=== PATIENT | female | born 1940 | race Caucasian/White ===

== ENCOUNTER 2025-01-23 13:07 | Emergency (ER) | payer MEDICARE, SELFPAY ==
--- NOTE | ~2025-01-23 | XR_ITS ---
CLINICAL HISTORY: contipation 1 view abdomen Comparison: None available Findings: Left axillary and left chest wall surgical clips in the [id number]. Mild bibasilar atelectasis with borderline cardiomegaly in the [id number]-[id number]. Calcifications of the tortuous aorta. Additional calcifications include phleboliths in the pelvis. No small bowel dilatation. Severe stool burden, including imaged cecum and including distally. Degenerative changes include imaged hips in the imaged spine in the frontal radiographs. IMPRESSION: 1. No small bowel obstruction. 2. Severe stool burden This document has been electronically signed by: Chan Saleem MD on 01/23/2025 19:25:05
[2025-01-23 13:44] VITALS: BP 162/75; PULSE 87; RESP 16; TEMP 36.8; O2SAT 92; BMI 35.4
--- NOTE | 2025-01-23 13:47 | ED_ITS ---
HPI - Skin/Abscess/Foreign Bdy General Chief complaint: General Medical Stated complaint: Rash On L Leg, Constipation Time Seen by Provider: 01/23/25 18:08 Source: patient Limitations: no limitations History of Present Illness ED Provider: Estefanía Driscoll PA-C HPI narrative: 84 yo female with PMH of adrenal insufficiency, IBS, hypothyroidism, HTN, HLD, GERD, PMR currently on 5mg prednisone daily, arthritis, anxiety, wears O2 at night for hypoxia, breast cancer ( mastectomy) here with multiple complaints including her bone aching, constipation and nausea, she feels very sick to her stomach. She also has L leg rash non itchy, non-painful x 3 days ago. She could not see her oncologist today due to not feeling well. She has seen a internal controls consultant for a fungal rash in past that responded to creams. She has an appointment with her internal controls consultant later today. Associated abdominal distention, nausea, unclear when last bowel movement was, is still passing flatus from below. No fevers. Related Data Allergies Allergy/AdvReac Type Severity Reaction Status Date / Time clindamycin Allergy Severe stomach Verified 01/23/25 13:51 pain amoxicillin [AMOXICILLIN] Allergy Unknown WITH Verified 01/23/25 13:51 COLVLANHIC ACID - CAN TAKE PLAIN AMOXICILLIN azithromycin [From ZITHROMAX] Allergy Unknown SAME Verified 01/23/25 13:51 LEVAQUIN codeine [CODEINE] Allergy Unknown ANYTHING Verified 01/23/25 13:51 WITH 'ANY' MAKES ME GO INTO SHOCK dexamethasone [DEXAMETHASONE] Allergy Unknown UNKNOWN Verified 01/23/25 13:51 Iodinated Contrast Media Allergy Unknown I GO OUT Verified 01/23/25 13:51 [IV CONTRAST] OF IT levofloxacin [From LEVAQUIN] Allergy Unknown TACHYCARDIA/HTN/BURNING Verified 01/23/25 13:51 ALL OVER paroxetine [From PAXIL] Allergy Unknown BURNING UP Verified 01/23/25 13:51 THROUGH HEAD sertraline [From ZOLOFT] Allergy Unknown STOMACH Verified 01/23/25 13:51 PROBLEMS Sulfa (Sulfonamide Allergy Unknown SICK TO Verified 01/23/25 13:51 Antibiotics) STOMACH [SULFA (SULFONAMIDE ANTIBIOTICS)] cephelexin Allergy Mild gi issues Uncoded 09/27/24 15:29 [facility] Past Medical History Attestation statement: The following information was validated with the patient. 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, estrogen receptor positive Lumbar spinal stenosis IBS (irritable bowel syndrome) Hypoxia Hypothyroidism Hyperlipidemia HTN (hypertension) Hiatal hernia Retinal detachment GERD (gastroesophageal reflux disease) Foot pain Esophagitis Diverticulitis Cataract Carcinoma of central portion of breast Earache symptoms in both ears 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 Atrophic vaginitis Arthritis Anxiety Allergic rhinitis Surgical History (Updated 09/27/24 @ 15:27 by JOSE Augustine) H/O: hysterectomy H/O section H/O mastectomy Family History Family History (Updated 09/27/24 @ 15:33 by JOSE Augustine) Father CAD (coronary artery disease) Brother Prostate CA Brother CAD (coronary artery disease) Sister Cancer, colon Social History Social History (Updated 09/27/24 @ 15:30 by JOSE Augustine) Alcohol intake: never Patient Tobacco Use Status: Never used Tobacco Physical Exam 2 Vital Signs: Vital Signs: Last Vital Signs Temp 98.3 F 01/23/25 20:12 Pulse 85 01/23/25 20:12 Resp 16 01/23/25 20:12 BP 145/70 H 01/23/25 20:12 Pulse Ox 94 01/23/25 20:12 O2 Del Method Room Air 01/23/25 20:12 BMI result Body Mass Index 35.4 Const: Other: Alert Orientation/consciousness: patient oriented x3 Resp: Effort & Inspection: normal respiratory effort Cardio: Other: Normal peripheral perfusion GI: Other: Abdomen is soft, somewhat distended, nontender no guarding Skin: Other: Warm dry, petechial/vasculitis type erythematous rash noted over left lower extremity, nontender, nonblanching, it is not raised, Neuro: General: patient oriented x3, gait normal, no focal motor deficits and CN's II-XI intact bilaterally Psych: Other: Uncooperative Course Course Course Narrative: 84 yo female with PMH of adrenal insufficiency, IBS, hypothyroidism, HTN, HLD, GERD, PMR currently on 5mg prednisone daily, arthritis, anxiety, wears O2 at night for hypoxia, breast cancer ( mastectomy) here with c/o her bone aching, constipation and nausea, she feels very sick to her stomach. She also has L leg rash non itchy x 3 days ago. She could not see her oncologist today due to not feeling well. She has seen a internal controls consultant for a fungal rash in past that responded to creams. at this time will obtain basic labs, EKG, CXR. this is a RAPID medical screening exam the rest of the history and physical exam is to be done by the main provider. PETTY 01/23/25 151pm Reevaluation(s) Reevaluation #1: At the time of discharge, I was going to treat the patient's cephalexin, she said ?I am not taking any medication that you give me?. I will relay home care instructions for the rash and the constipation, I have advised she should keep her appointment with her internal controls consultant. Medications Administered Discontinued Medications Generic Name Dose Route Start Last Admin Trade Name Freq PRN Reason Stop Dose Admin Al Hydroxide/Mg Hydroxide 30 ml 01/23/25 18:50 01/23/25 19:02 Magnesium Hydrox/Alum Hydrox 30 Ml Oral.Susp PO 01/23/25 18:51 30 ml ONCE ONE Administration Cephalexin HCl 500 mg 01/23/25 19:33 01/23/25 19:56 Cephalexin 500 Mg Capsule PO 01/23/25 19:34 Not Given ONCE ONE Ondansetron HCl 4 mg 01/23/25 18:50 01/23/25 19:01 Ondansetron Odt 4 Mg Tab.Rapdis TRANSLINGU 01/23/25 18:51 4 mg ONCE ONE Administration Medical Decision Making Medical Decision Making MDM Narrative: 84 yo female with PMH of adrenal insufficiency, IBS, hypothyroidism, HTN, HLD, GERD, PMR currently on 5mg prednisone daily, arthritis, anxiety, wears O2 at night for hypoxia, breast cancer ( mastectomy) here with multiple complaints including her bone aching, constipation and nausea, she feels very sick to her stomach. She also has L leg rash non itchy, non-painful x 3 days ago. She could not see her oncologist today due to not feeling well. She has seen a internal controls consultant for a fungal rash in past that responded to creams. She has an appointment with her internal controls consultant later today. Associated abdominal distention, nausea, unclear when last bowel movement was, is still passing flatus from below. No fevers. Problem: Age, adrenal insufficiency, IBS, cancer History: Per patient I have considered the following differential diagnoses: Bowel obstruction, constipation, fecal impaction, cellulitis, vasculitis, fungal infection Plan: In regard to the patient's abdominal complaint, she is likely constipated, she is not having complete obstructive symptoms we will obtain a KUB. In regard to the rash, it could be cellulitic, it does appear petechial to some degree it is not blanching, wanting to treat the patient with antibiotics. I have independently reviewed the following tests: Labs: No overall leukocytosis however left shift noted, no electrolyte abnormality, not anemic, inflammatory marker elevated, troponin <2.7 EKG: Normal sinus rhythm, rate 81, incomplete right bundle noted again, left anterior fascicular block, no ischemic changes, no change from prior study QTC 4 6 no KUB:Findings: Left axillary and left chest wall surgical clips in the [id number]. Mild bibasilar atelectasis with borderline cardiomegaly in the [id number]. Calcifications of the tortuous aorta. Additional calcifications include phleboliths in the pelvis. No small bowel dilatation. Severe stool burden, including imaged cecum and including distally. Degenerative changes include imaged hips in the imaged spine in the frontal radiographs. IMPRESSION: 1. No small bowel obstruction. 2. Severe stool burden Lab Data 01/23/25 14:09 01/23/25 14:09 Labs: Lab Results 01/23/25 Range/Units 14:09 WBC 10.7 (4.8-10.8) X10*3/uL RBC 4.56 (4.20-5.50) X10*6/uL Hgb 14.0 (12.0-16.0) g/dl Hct 41.0 (37.0-47.0) % MCV 89.9 (80.0-98.0) fL MCH 30.7 (27.0-33.0) pg MCHC 34.1 (31.0-35.0) g/dl RDW 14.4 (11.0-16.0) % Plt Count 180 (160-400) X10*3/uL MPV 9.3 L (9.4-12.3) fL Immature Gran % (Auto) 0.4 (0.0-0.4) % Neut % (Auto) 79.5 H (45-73) % Lymph % (Auto) 14.3 L (20-40) % [place] % (Auto) 5.3 (2-11) % Eos % (Auto) 0.3 (0-4) % Baso % (Auto) 0.2 (0-2) % Lymph # (Auto) 1.5 (1.2-4.9) X10*3/uL [place] # (Auto) 0.6 (0.1-1.2) X10*3/uL Eos # (Auto) 0.0 (0.0-0.4) X10*3/uL Baso # (Auto) 0.0 (0.0-0.2) X10*3/uL Abs Immat Gran (auto) 0.04 H (0.00-0.03) X10*3/uL Absolute Neuts (auto) 8.5 H (2.0-8.3) x10*3/uL Absolute Nucleated RBC 0.000 (0.0-0.012) X10*3/uL Nucleated RBC % (auto) 0.0 (0.0-0.2) /100WBC Sodium 135 (135-145) mmol/L Potassium 3.9 (3.3-5.1) mmol/L Chloride 96 (96-108) mmol/L Carbon Dioxide 31 H (22-29) mmol/L Anion Gap 12 (12-20) BUN 14 (9-16) mg/dL Creatinine 0.53 (0.5-1.4) mg/dL Estim Creat Clear Calc 72.4 Estimated GFR > 60 Random Glucose 122 H (60-115) mg/dL Calcium 9.7 (8.4-10.2) mg/dL Magnesium 2.0 (1.6-2.6) mg/dL Total Bilirubin 0.4 (0.0-1.0) mg/dL Direct Bilirubin 0.1 (0.0-0.5) mg/dL AST 29 (5-31) U/L ALT 25 (0-31) U/L Alkaline Phosphatase 51 (39-117) U/L Troponin I High Sens < 2.7 (<3.5-17.0) ng/L C-Reactive Protein 1.14 H (< or = 0.50) mg/dL B-Natriuretic Peptide 62 (<100) pg/mL Total Protein 6.9 (6.5-8.0) g/dL Albumin 4.4 (3.5-5.0) g/dL Lipase 55 (8-78) U/L Urine Color Yellow Urine Appearance Clear Urine pH 7.5 (5.0-9.0) Ur Specific [place] <= 1.005 (1.005-1.025) Urine Protein Negative (Neg-Trace) mg/dL Urine Glucose (UA) Negative (Negative) mg/dL Urine Ketones Negative (Negative) mg/dL Urine Blood Negative (Negative) Urine Nitrite Negative (Negative) Ur Leukocyte Esterase Negative (Negative) Discharge Plan Discharge Clinical Impression: Constipation, Vasculitis Patient Disposition: Home, Self-Care Instructions: Constipation (ED), Cellulitis (ED) Additional Instructions: In regard to your abdominal pain, you were found to be considerably constipated. See home care instructions. You need to purchase [id number] Colace this is a stool softener, take it twice a day. You need to purchase [id number] MiraLax, use it 4 times a day, until you begin having multiple large volume bowel movements. The rash on the left calf could be related to cellulitis, you refused treatment, we were going to treat you with cephalexin. Again, you refused treatment Follow up with your internal controls consultant and primary care provider. Interventions: ED Discharge Assessment Last Done: 01/23/25 20:12 Discharge Date/Time: 01/23/25 20:14 Print Language: Croatian
--- NOTE | 2025-01-23 13:48 | ECG_ITS ---
Test Reason : ABD PAIN Blood Pressure : */* mmHG Vent. Rate : 81 BPM Atrial Rate : 81 BPM P-R Int : 154 ms QRS Dur : 116 ms QT Int : 404 ms P-R-T Axes : 24 -71 16 degrees QTcB Int : 469 ms Normal sinus rhythm Incomplete right bundle branch block Left anterior fascicular block Abnormal ECG When compared with ECG of 30-Sep-2016 22:43, No significant change was found Referred By: Sydney Arroyo Electronically Signed By: DARREN FU MD
[2025-01-23 14:15] LABS: MANUAL DIFF FLAG NO
[2025-01-23 14:17] LABS: Appearance Urine Clear; Color Urine Yellow; Glucose Urine UA Negative (Negative); Leukocyte Esterase Urine Negative (Negative); Nitrite Urine Negative (Negative); PH 7.5 (5.0-9.0); Specific Gravity - Urine <= 1.005 (1.005-1.025); Urine Blood Negative (Negative); Urine Ketones Negative (Negative); Urine Protein Negative (Neg-Trace)
[2025-01-23 14:18] LABS: Basophils Percent Auto 0.2 % (0-2); Eosinophils Percent Auto 0.3 % (0-4); Imm Gran Abs Auto 0.04 X10*3/uL (0.00-0.03); Imm Gran Pct Auto 0.4 % (0.0-0.4); Lymphocytes Absolute Auto 1.5 X10*3/uL (1.2-4.9); Lymphocytes Percent Auto 14.3 % (20-40); Mean Corpuscular HGB Conc 34.1 g/dl (31.0-35.0); Mean Corpuscular Hemoglobin 30.7 pg (27.0-33.0); Mean Corpuscular Volume 89.9 fL (80.0-98.0); Mean Platelet Volume 9.3 fL (9.4-12.3); Monocytes Absolute Auto 0.6 X10*3/uL (0.1-1.2); Monocytes Percent Auto 5.3 % (2-11); Neutrophils Absolute Auto 8.5 x10*3/uL (2.0-8.3); Neutrophils Percent Auto 79.5 % (45-73); Platelet Count 180 X10*3/uL (160-400); Red Blood Count 4.56 X10*6/uL (4.20-5.50); Red Cell Distribution Width 14.4 % (11.0-16.0); White Blood Count 10.7 X10*3/uL (4.8-10.8)
[2025-01-23 14:35] LABS: Alanine Aminotransferase 25 U/L (0-31); Albumin Level 4.4 g/dL (3.5-5.0); Alkaline Phosphatase 51 U/L (39-117); Anion Gap 12 (12-20); Aspartate Amino Transferase 29 U/L (5-31); Bilirubin Direct 0.1 mg/dL (0.0-0.5); Bilirubin Total 0.4 mg/dL (0.0-1.0); Blood Urea Nitrogen 14 mg/dL (9-16); C Reactive Protein 1.14 mg/dL (< or = 0.50); Calcium 9.7 mg/dL (8.4-10.2); Carbon Dioxide 31 mmol/L (22-29); Chloride 96 mmol/L (96-108); Creatinine Clr Calc Pharmacy 72.4; Estimated Glomerular Filt Rate > 60; Glucose Random 122 mg/dL (60-115); Lipase 55 U/L (8-78); Potassium 3.9 mmol/L (3.3-5.1); Sodium 135 mmol/L (135-145); Total Protein 6.9 g/dL (6.5-8.0)
[2025-01-23 14:40] LABS: B Type Natriuretic Peptide 62 pg/mL (<100)
[2025-01-23 14:43] LABS: Troponin-I High Sensitivity < 2.7 ng/L (<3.5-17.0)
--- OUTSIDE RECORDS SUMMARY | 2025-01-23 16:18 | XMS_ITS | Data Portability ---
Author Organization [place] - [facility] Address [address] [place] [id number] Care Team Providers Care Staff Veterinarian Name Role Phone MAIN OFFICE Primary Care Provider Assessment Encounter Date Assessment Date Assessment LastModified by Organization Details LastModified Time 05/03/2020 05/03/2020 Overview/History : Pt is an 79yo F with PMH sig for COPD, Breast CA, HTN, Polymyalgia Rheumatica, and IBS. Pt reports that she has chronic issues with excessive cerumen in her bilat ears. States that previously her left TM has been perforated. She states that about 3 weeks ago her irrigated her ears and got a large amount of wax out but that she had pain immediately in the left ear and that over the last week or so she has been having intermittent pain in her left ear. Exam: Pt is A/Ox3, non-toxic appearing, VSS, HRR, resp reg and unlabored on RA, lungs CTA bilat. HEENT exam pos for erythema to the left ear canal. Remainder of HEENT exam was WNL. DDx considered, but not limited to: Otitis Externa: likely given reports of intermittent pain after ear irrigation procedure with erythema noted to the canal Otitis Media: unlikely given no erythema noted to the TM TM perf: unlikely given TM appeared intact at time of visit URI: unlikely as pt denies any other URI type sx. Cerumen impaction: unlikely given no excessive cerumen noted to the left ear and TM easily visualized Work up/Results: no further work up indicated at this time. Plan/Discussion: Pt started on antibiotic ear drops for otitis externa. Pt verified that she is able to use hydrocortisone without issue. Advised f/u with PCP as needed. Patients PCP contacted and updated on patient status. Patient verbalized understanding of discharge instructions and when to follow up with PCP/911/ED as needed. Patient in agreement with current plan and treatment. Time On Scene with Patient: 00:22:30 vivian Not available 05/03/2020 20:43:04 10/18/2021 10/18/2021 Time On Scene with Patient: 00:42:45 Overview/History: 81 year old female known to but new to provider with a history of diverticulosis/acu te diverticulitis, HTN, breast CA, hypothyroid, PMR, IBS being seen today for lower abd cramping, constipation. She has been being treated for acute diverticulitis since 10/11 from [facility], originally on Flagyl but changed to Augmentin due to her being unable to tolerate because of headaches. She was told that Augmentin will give her diarrhea so she stopped her Miralax that she has been taking daily for many years. Now she has developed hemorrhoids from her constipation. Did take Prep H supp last night and this morning with relief of her rectal pressure. Had small formed stool today but still feels lower abd pressure, full of gas for which she is passing gas. States not eating well because she was unsure of what to eat with the diverticulitis. No vomiting. Drinking water without incident. No fever or chills; no shortness of breath or chest pain; using her oxygen at 2lpm now at 100%. Exam: Non-acutely ill, slightly anxious female with softly distended abdomen, hyperactive bowel sounds. Offered to visualize hemorrhoids but declined as she states they are getting better. DDx considered, but not limited to: -Persistent diverticulitis: considered due to current dx but non-acute appearing abdomen; nontender -Constipation: most likely due to stopping daily Miralax -Ileus: eating and drinking well; no vomiting -Hemorrhoids: stated but did not visualize Work up/Results: Non-contributory exam Plan/Discussion: -Discussed and provided handouts on dietary recommendations -To re-start her Miralax, ensure adequate hydration -Increase probiotics/yogurt to 2-3 times a day -Prep H/witch tavares pads -ED precautions Proper Personal Protective Equipment (PPE), including gloves, eye protection and masks were donned and doffed appropriately and all equipment cleaned using approved technique with germicidal disposable wipes prior to and after care of this patient according to [facility]'s infection prevention protocols. arvind Not available 10/18/2021 14:50:55 07/19/2022 07/19/2022 Overview/History : 82 YO F known to but new to provider 4 days of URI sxs that are consistent w/ COVID 19 She did a test earlier this week that was positive but she isnt sure she did it quite right Sore throat, fever, non-productive cough, runny stuffy nose, intermittent mild headaches, upset stomach w/o sig NVD. Tylenol and Sharon cough drops have been helping w/ her sxs she reports. Nothing makes sxs worse. Denies weakness numbness, tingling, falls, visual changes, resp distress, chest pain. No other reportes sxs or concerns today. Exam: Vitals: Fever at 101.1 F, other VSS Constitutional: 82 yo Well developed, well nourished, pleasant patient in no apparent distress. She appears well today despite being sick, she is comfortable upright in her chair and she is not toxic appearing, Eyes: PERRL at 4mm, EOM's intact, corrective lenses, No swelling, no discharge, sclera / conjunctiva clear ENT: no lymphadenopathy, nontender sinuses, clear BL nasal dc,, no erythema/ exudate noted in oropharynx, uvula and trachea midline, moist mucous membranes CV: RRR, no rubs/ murmurs/ gallops heard, 2+ radial pulses bilaterally, no edema and no calf tenderness BL, 2+ DP/ PT pulses bilaterally Pulm: breath sounds clear and equal bilaterally, no wheeze/ rhonchi or rales on auscultation. Speaks in full sentences, no increased work of breathing. GI: Soft, non-tender to palpation. No masses, normal bowel sounds. NO guarding and no distension. : No CVA tenderness bilaterally. No suprapubic tenderness. MS: Self ambulatory patient, moves all limbs without deficit, no evidence of trauma Neuro: No focal deficits, A&O x4 Skin: No rash, viisble skin is cdi Psych: Calm, cooperative, non-manic. Pleasant. DDx considered, but not limited to: COVID - + test and sxs Flu - + for covid, 4 days of sxs, no need to test for concominant flu infx as would be OOW for antivirals anyway CAP - lungs CTAB, non productive cough, doubtful, f/u if sxs change Work up/Results: Rapid covid + Plan/Discussion: COVID: -Tested posiitve at home and again today -W/ classic mild URI sxs at this time -VSS and low grade fever -Cont OTC meds such as tylenol to help w. sxs, she may use cough drops that do not have any numbing medicine such as benzocaine as she is allergic to novacaine -Eat and drink bland foods to help w/ upset stomach, BRAT diet, and warm liquids to soothe throat -Max 3000 mg Tylenol/day -Call PCP to alert them of diagnosis and see if they would want her on any tx for this, she is not vaccinated d/t numerous allergy hx -I do not have access to KFTS or LFTs to dose appropriately and by time I would get results back would be OOW for antivirals (past day 5 of infx) as she is already on day 4-5 already -She will call PCP once we leave -Cont monitoring O2 sat at home, to ER < 90% -She appears to be doing well, f/u if sxs change Isolate per CDC guidelines -F/u emergently for fever > 102 F, abd pain, sig NVD, weakness, chest pain, resp distress, low O2 sat, cyanosis/pallor, numbness/tingling, lethargy Pt and is on agreement and verbalizes understanding with the above plans at this time. Pt and has no other questions or concerns at this time. All questiosn are answered to the best of my ability. Pt and thanks us for our visit today. [email or web address] Not available 07/19/2022 15:32:44 Plan of Treatment Reminders Order Date Submit Date Provider Last Modified By Organization Details Last Modified Time Details Appointments None recorded. Lab rapid SARS CoV 2 Ag, QL IA, respirato ry specimen 2021 022 crumplik [facility], [address] [place] [address], [id number], 14:40:08 Referral None recorded. Procedures None recorded. Surgeries None recorded. Imaging None recorded. Medication Orders neomycin- polymyxin -hydrocor t 3.5 mg-10,000 unit/mL-1 % ear drops,aneta p 2019 020 [facility], [address] [place] [address], [place], [address], 13:19:32 Patient TargetsNo targets recorded. Patient Instructions Encounter Date Encounter Id Patient Instructions Last Modified By Organization Details Last Modified Time 05/03/2020 [id number] ear infection (otitis media): care instructions vivian Not available 05/03/2020 13:07:15 Thank you for yo ur [facility]. We cannot always find the exact cause of your symptoms during your initial visit. Please follow up with your primary care provider or specialist as needed to be rechecked or seek medical attention if your symptoms do not go away or get worse. If you develop any new or worsening symptoms and need after hours care, please go to nearest ER and/or call 911. If you have additional concerns or develop a change in your condition between 8am-10pm, please call [facility] at [phone] to help navigate your care. vivian Not available 05/03/2020 13:07:01 10/18/2021 [id number] -You were seen today for lower abdominal cramping, hemorrhoids due to constipation -You must finish the coarse of antibiotics prescribed but take your probiotics twice a day and continue to eat yogurt daily -You may restart your Miralax to provide relief for your constipation -Maintain hydration; refer to the provided handout that discusses/lists what foods to eat during an acute inflammation -Continue with Preparation H suppositories for relief and may use witch tavares pads/external creams for external pain relief. -Call your PCP for follow up in 5-7 but seek medical attention for any increased abdominal pain, fever, vomiting or other concerns arvind Not available 10/18/2021 13:42:25 Reason for Referral None Reported. Results Created Date Observation Date Name Description Value Unit Range Abnormal Flag Note LastModifiedBy Organization Detail LastModifiedTime 07/19/20 22 07/19/2022 rapid SARS CoV 2 Ag, QL IA, respi rator y speci men Covid-19 (ref: neg) negati ve Not Available [facility] [address] [place], [address], 07/19/2022 14:38:37 07/19/20 22 07/19/2022 rapid SARS CoV 2 Ag, QL IA, respi rator y speci men Control Visual ized/V alid Not Available [facility] [address] [place], [address], 07/19/2022 14:38:37 07/19/20 22 07/19/2022 rapid SARS CoV 2 Ag, QL IA, respi rator y speci men Location [facility], [address] [place] [address], [id number] Not Available [facility] [address] [place], [address], 07/19/2022 14:38:37 Result Notes None recorded. Procedures Surgical History Date Name Laterality Status Provider Name and Address Organization Details Recorded Time 07/19/20 Medication Review completed LIONEL Whitlock [address] [place], [address], [place] [facility] 07/19/2022 14:40:29 Imaging Results None recorded. Procedure Notes None recorded. Medical Equipment None Reported. Allergies Allergen ID Allergen Name Allergen Category Reaction Reaction Severity Criticality Documentation Date Start Date Code Code System Note Provider Name and Address Organization Details Recorded Time [id number] clindamyc in Not available Not available Not available Not available 05/03/2020 2582 RxNorm YOLI SU NP [address] [place], [address], [place] [facility] 0 12:49:13 [id number] Augmentin medicatio n Not available Not available Not available 05/03/2020 39551 2 RxNorm YOLI SU NP [address], [place], [address], [place] [facility] 0 12:49:24 [id number] Zoloft medicatio n Not available Not available Not available 05/03/2020 19277 RxNorm YOLI SU , MARKETING PROJECT COORDINATOR [address], [place], [address], [place] [facility] 0 12:49:33 [id number] codeine medicatio n Not available Not available Not available 05/03/2020 2670 RxNorm YOLI SU , MARKETING PROJECT COORDINATOR [address], [place], [address], [place] [facility] 0 12:49:47 [id number] procaine hydrochlo ride medicatio n Not available Not available Not available 05/03/2020 58726 8 RxNorm YOLI SU , MARKETING PROJECT COORDINATOR [address], [place], [address], [place] [facility] 0 12:50:18 [id number] Xylocaine medicatio n Not available Not available Not available 05/03/2020 44877 8 RxNorm YOLI SU , MARKETING PROJECT COORDINATOR [address], [place], [address], [place] [facility] 0 12:50:46 [id number] Levaquin medicatio n Not available Not available Not available 05/03/2020 70458 2 RxNorm YOLI SU , MARKETING PROJECT COORDINATOR [address], [place], [address], [place] [facility] 0 12:50:56 [id number] Zithromax medicatio n Not available Not available Not available 05/03/2020 11781 4 RxNorm YOLI SU , MARKETING PROJECT COORDINATOR [address], [facility], [address], [place] [facility] 0 12:51:09 [id number] Substance with sulfonami de structure and antibacte rial mechanism of action (substanc e) medicatio n Not available Not available Not available 05/03/2020 88318 8003 SNOMED YOLI SU , MARKETING PROJECT COORDINATOR [address], [place], [address], [place] [facility] 0 12:51:16 [id number] dexametha sone medicatio n Not available Not available Not available 05/03/2020 3264 RxNorm YOLI SU , MARKETING PROJECT COORDINATOR [address], [place], [place], [address], [place] [facility] 0 12:51:23 [id number] triamcino lone medicatio n Not available Not available Not available 05/03/2020 47713 RxNorm YOLI SU , MARKETING PROJECT COORDINATOR [address], [place], [address], [place] [facility] 0 12:51:32 Medications Name Sig Start Date Stop Date Status Note LastModified by Organization Details LastModified Time vitamin d3 5000 iu softgels 50 TAKE 1 CAPSULE BY MOUTH EVERY DAY active Not Available Not Available No t Available furosemide 40 mg tablet TAKE ONE TABLET BY MOUTH EVERY DAY active Not Available Not Available No t Available neomycin-po lymyxin-hyd rocort 3.5 mg/mL-10,00 0 unit/mL-1 % ear solution INSTILL 4 DROPS INTO AFFECTED EAR(S) THREE TIMES DAILY FOR 7 DAYS 10/18 completed Not Available Not Available Not Available prednisone 10 mg tablet TAKE 2 TABLETS BY MOUTH TWICE A DAY FOR 2 DAYS THEN TAKE 1 TABLET TWICE DAILY X 2 DAYS 05/03 completed Not Available Not Available Not Available torsemide 20 mg tablet TAKE ONE TABLET BY MOUTH EVERY DAY 10/18 completed Not Available Not Available Not Available albuterol sulfate 2.5 mg/3 mL (0.083 %) solution for nebulizatio n active Not Available Not Available Not Available triazolam 0.25 mg tablet TAKE ONE AND ONE-HALF TABLETS BY MOUTH AT BEDTIME NEEDED FOR INSOMNIA active Not Available Not Available No t Available hydrochloro thiazide 50 mg tablet TAKE ONE TABLET BY MOUTH EVERY DAY IN THE MORNING active Not Available Not Available No t Available prednisone 5 mg tablet TAKE 1 TABLET BY MOUTH EVERY DAY 10/18 completed Not Available Not Available Not Available atenolol 25 mg tablet TAKE TWO TABLETS BY MOUTH EVERY DAY active Not Available Not Available No t Available metronidazo le 500 mg tablet TAKE 1 TABLET BY MOUTH EVERY 8 HOURS. 10/18 completed Not Available Not Available Not Available triamcinolo ne acetonide 0.1 % topical cream APPLY TWO TIMES A DAY TO RASH ON ELBOWS UP TO 2 WEEKS ON , 1 WEEK OFF, REPEAT NEEDED. active Not Available Not Available No t Available alprazolam 0.5 mg tablet TAKE ONE TABLET BY MOUTH THREE TIMES A DAY NEEDED FOR SEVERE ANXIETY active Not Available Not Available No t Available amoxicillin 875 mg tablet TAKE 1 TABLET BY MOUTH TWICE A DAY FOR 7 DAYS 05/03 completed Not Available Not Available Not Available prednisolon e acetate 1 % eye drops,suspe nsion INSTILL 1 DROP INTO BOTH EYES TWICE DAILY DIRECTED FOR 3 WEEKS THEN COUPLE TIMES A WEEK. active Not Available Not Available No t Available levothyroxi ne 50 mcg tablet TAKE ONE TABLET BY MOUTH EVERY DAY active Not Available Not Available No t Available prednisone 2.5 mg tablet TAKE ONE TABLET BY MOUTH EVERY DAY active Not Available Not Available No t Available neomycin-po lymyxin-dex ameth 3.5 mg/mL-10,00 0 unit/mL-0.1 % eye drops PUT 1 DROP INTO THE LEFT EYE 3 TIMES DAILY DIRECTED. active Not Available Not Available No t Available nystatin 100,000 unit/gram topical cream APPLY 1 APPLICATI ON TOPICALLY TO THE AFFECTED AREA(S) TWICE DAILY active Not Available Not Available No t Available oxycodone 5 mg capsule TAKE ONE CAPSULE BY MOUTH EVERY 6 HOURS NEEDED FOR PAIN . DO NOT DRIVE WHILE ON THIS MEDICATIO N active Not Available Not Available No t Available lansoprazol e 15 mg capsule,del ayed release TAKE TWO CAPSULES BY MOUTH EVERY DAY active Not Available Not Available No t Available hydrochloro thiazide 25 mg tablet TAKE ONE TABLET BY MOUTH EVERY DAY 10/18 completed Not Available Not Available Not Available mupirocin 2 % topical ointment APPLY TWICE A DAY TO BIOPSY SITE UNTIL HEALED active Not Available Not Available No t Available Monurol 3 gram oral packet DISSOLVE ONE PACKET IN WATER AND TAKE BY MOUTH ONCE 05/03 completed Not Available Not Available Not Available ketoconazol e 2 % topical cream APPLY TO AFFECTED AREAS OF FEET TWICE DAILY UNTIL CLEAR AND NEEDED FOR MAINTENAN CE active Not Available Not Available No t Available fluticasone propionate 50 mcg/actuati on nasal spray,suspe nsion USE TWO SPRAYS IN EACH NOSTRIL ONCE A DAY active Not Available Not Available No t Available amoxicillin 875 mg-paulu m clavulanate 125 mg tablet TAKE ONE TABLET BY MOUTH TWICE A DAY FOR 10 DAYS 10/18 completed Not Available Not Available Not Available oxycodone 5 mg tablet 05/03 completed Not Available Not Available Not Available neomycin-po lymyxin-hyd rocort 3.5 mg-10,000 unit/mL-1 % ear drops,susp INSTILL 4 DROPS INTO AFFECTED EAR(S) BY OTIC ROUTE 3 TIMES PER DAY FOR 7 DAYS 10/18 completed Not Available Not Available Not Available nitrofurant oin monohydrate /macrocryst als 100 mg capsule TAKE 1 CAPSULE BY MOUTH TWICE DAILY 05/03 completed Not Available Not Available Not Available Augmentin active Not Available Not Tomasa ilable Not Available Miralax active Not Available Not Avail able Not Available mometasone 0.1 % topical solution APPLY TOPICALLY TWO TIMES A DAY TO PSORIASIS ON EARS active Not Available Not Available No t Available diclofenac 1 % topical gel APPLY TO AFFECTED AREA(S) UP TO THREE TIMES A DAY 05/03 completed Not Available Not Available Not Available Readi-Cat 2 2 % (w/v) oral suspension DRINK 1ST BOTTLE [address] SCAN AND THEN DRINK 2ND BOTTLE [address] SCAN active Not Available Not Available No t Available Yupelri 175 mcg/3 mL solution for nebulizatio n active Not Available Not Available Not Available Vitals Date Recorded Heart rate Oxygen saturation Oxygen saturation in Arterial blood by Pulse oximetry Inhaled oxygen flow rate Respiratory rate Body temperature Systolic blood pressure Diastolic blood pressure Provider Name and Address Organization Details Last Updated DateTime 2 76 /min 100 % 100 % 2 L/min 16 /min 99.2 [degF] 128 mm[Hg] 66 mm[Hg] Not Available [facility] 2 13:17:38 Date Recorded Body temperature Respiratory rate Oxygen saturation Oxygen saturation in Arterial blood by Pulse oximetry Heart rate Systolic blood pressure Diastolic blood pressure Provider Name and Address Organization Details Last Updated DateTime 0 99.3 [degF] 16 /min 94 % 94 % 80 /min 160 mm[Hg] 80 mm[Hg] Not Available [facility] 0 12:50:58 Date Recorded Heart rate Oxygen saturation Oxygen saturation in Arterial blood by Pulse oximetry Respiratory rate Body temperature Systolic blood pressure Diastolic blood pressure Provider Name and Address Organization Details Last Updated DateTime 2 76 /min 94 % 94 % 20 /min 101.1 [degF] 118 mm[Hg] 58 mm[Hg] Not Available [facility] 2 14:35:55 Social History Question Answer Notes LastModified by Organizat ion Details LastModified Time Tobacco Smoking Status Former Smoker YOLI SU, CHERYL [address] [place], [address], [place] [facility] 05/03/2020 12:55:53 Do You Have An Advance Directive? Yes Information not available 05/03/2020 What Is Your Code Status? Full Code Information not available 05/03/2020 Within The Past 12 Months, Has It Happened That The Food You Bought Just Didn't Last And You Didn't Have Money To Get More. No Information not available 05/03/2020 Within The Past 12 Months, Have You Worried That Your Food Would Run Out Before You Got Money To Buy More. No Information not available 05/03/2020 Fall Risk: Do You Feel Unsteady When Standing Or Walking? No Information not available 05/03/2020 We Know That How And When People Interact With Friends And Family Can Be Very Different From Person To Person. How Often Do You Have The Opportunity To See Or Talk To People That You Care About And Feel Close To? (Ex: Talking To Friends On The Phone Or Visiting Friends Or Family Or Going To Zoroastrian Or Club Meetings) 3 Or 4 Times Per Week Information not available 05/03/2020 Excessive Alcohol Or Drug Use No Vodka And Finley With Dinner Nightly Information not available 05/03/2020 We Know From Many Of Our Patients That Covering All Of Their Costs Can Be Difficult At Times. This Can Cause Stress And Impact Health. In The Past Year, Have You Been Unable To Get Any Of The Following When It Was Really Needed? No Information not available 05/03/2020 What Is Your Housing Situation Today? I Have Housing Information not available 05/03/2020 Would You Like Help Connecting To Resources? None Information not available 05/03/2020 Sex: Unknown Functional Status None recorded. Mental Status None recorded. Family History Relationship Description Onset Age of this Age Resolved Age Notes LastModified by Organization Details LastModified Time Mother Hypertensive disorder vivian Not available 05/03 12:55:48 Medical History Condition Response Diabetes N Coronary Artery Disease N CHF N Cancer Y Stroke N Dementia N Hypothyroidism Y Asthma N COPD Y Depression N High Cholesterol N Rheumatoid Arthritis N Pulmonary Embolism N Hypertension Y A-fib N Kidney Disease N Gynecological HistoryNo gynecological history recorded. Obstetrics History GPAL:G 0 P 0 0 0 0 Past Encounters Encounter ID Performer Location Encounter Start Date Encounter Closed Date Diagnosis/Indication Diagnosis SNOMED-CT Code Diagnosis ICD10 Code Diagnosis Note [id number] YOLI SU NP [facility] [address] [place] [address] 05/03/2020 12:46:56 05/07/2020 20:49:05 Acute otitis externa 56268563 H60.509 [id number] Heather Cervantes NP [facility] [address] [place] [address] 10/18/2021 13:08:18 10/19/2021 11:36:20 Diverticulitis of sigmoid colon 017351524 K57.32 Constipation 80873226 K5 9.00 Hemorrhoids 51091559 K64 .9 [id number] LIONEL Dill [facility] [address] [place] [address] 07/19/2022 14:18:51 08/03/2022 11:23:48 COVID-19 240381146 U07.1 Health Concerns Section Related Observation LastModified by Organization Detai ls LastModified Time None Recorded Concern Status LastModified by Organization Details LastModified Time None Recorded Advance Directives Directive Y: Payers Insurance Date Sequence Insurance Name Policy Number Policy Acosta Covered Member ID Acosta Member ID Guarantor Name 08/03/2022 2 [facility] [id number] Melchor Hernandez [id number] Melchor Hernandez 10/18/2021 1 *SELF PAY* Melchor Hernandez [id number] Melchor Hernandez 07/19/2022 1 MEDICARE B-[place]: [facility] Melchor Hernandez [id number] Melchor Hernandez Notes Date Note Type Note Provider Name and Address Organization Details Recorded Time 0 text/html Pt reports she has had recurrent pain in the left ear for the last 2 years. She has cerumen impaction and states she has had a rupture of the left TM. She states her flushed her ears a couple a weeks ago and she reported pain to the left ear at that time. States that over the last week or so off an on the ear has started to ache and she states she feels like there is wax in the ear. YOLI SU, CHERYL [address], [place], [address], [place] [facility] 05/03/2020 20:45:49 2 text/html 81 year old female known to but new to provider with a history of diverticulosis/acut e diverticulitis, HTN, breast CA, hypothyroid, PMR, IBS being seen today for lower abd cramping, constipation. She has been treated for acute diverticulitis after [facility] ER visit on 10/11 for which she had abd pain and diarrhea. Originally on Flagyl but changed to Augmentin due to her being unable to tolerate because of headaches. She was told that Augmentin will give her diarrhea so she stopped her Miralax that she has been taking daily for many years. She was unsure if able to take with Augmentin with Miralax so did not continue med. Her constipation with incraeased bearing down caused her hemorrhoids to return. Did take Prep H supp last night and this morning with relief of her rectal pressure. Had small formed stool today but still feels lower abd pressure, full of gas for which she is passing gas. States not eating well because she was unsure of what to eat with the diverticulitis. No vomiting. Drinking water without incident. No fever or chills; no shortness of breath or chest pain; using her oxygen at 2lpm now at 100%. Heather Cervantes, CHERYL [address], [place], [address], [place] [facility] 10/18/2021 14:52:24 2 text/html 82 YO F known to but new to provider4 days of URI sxs that are consistent w/ COVID 19She did a test earlier this week that was positive but she isnt sure she did it quite right Sore throat, fever, non-productive cough, runny stuffy nose, intermittent mild headaches, upset stomach w/o sig NVD.Tylenol and Sharon cough drops have been helping w/ her sxs she reports. Nothing makes sxs worse.Denies weakness numbness, tingling, falls, visual changes, resp distress, chest pain. No other reportes sxs or concerns today. LIONEL Whitlock [address] [place], [address], [place] [facility] 07/19/2022 15:33:00 OBGyn Episode No OBEpisode recorded.
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
[2025-01-23 18:00] VITALS: BP 145/70; PULSE 85; RESP 16; TEMP 36.8; O2SAT 94
[2025-01-23] MEDS: Ondansetron ODT 4 MG TAB.RAPDIS TRANSLINGU (19:01)
[2025-01-23] MEDS: Magnesium Hydrox/Alum Hydrox 30 ML ORAL.SUSP PO (19:02)
[2025-01-23 20:12] VITALS: BP 145/70; PULSE 85; RESP 16; TEMP 36.8; O2SAT 94
== END 2025-01-23 20:14 | disposition home or self-care (01) ==
PROVIDERS: Emergency Medicine; Physician Assistant Medical; Emergency Provider Internal Medicine
DX: K59.00 Constipation, unspecified (principal); I77.6 Arteritis, unspecified; R11.0 Nausea; R21 Rash and other nonspecific skin eruption; E11.9 Type 2 diabetes mellitus without complications; I10 Essential (primary) hypertension; E78.5 Hyperlipidemia, unspecified; E03.9 Hypothyroidism, unspecified; I45.19 Other right bundle-branch block; I44.4 Left anterior fascicular block; R09.02 Hypoxemia; Z99.81 Dependence on supplemental oxygen
CPT/HCPCS: 36415; 74018; 80048; 80076; 81003; 83690; 83735; 83880; 84484; 85025; 86140; 93005; 99283; 99284

== ENCOUNTER → 2025-01-23 13:48 | Outpatient (BNV) | payer MEDICARE, SELFPAY | PROVIDERS: Emergency Provider Internal Medicine; Visit Provider Internal Medicine Cardiovascular Disease | DX: I44.0 Atrioventricular block, first degree (principal); I45.10 Unspecified right bundle-branch block | CPT/HCPCS: 93010 ==

== ENCOUNTER → 2025-01-23 18:24 | Outpatient (BNV) | payer MEDICARE, SELFPAY | PROVIDERS: Visit Provider Radiology Neuroradiology | DX: K56.41 Fecal impaction (principal) | CPT/HCPCS: 74018 ==

== ENCOUNTER 2025-04-03 13:09 | Outpatient (AMB) | payer MEDICARE, SELFPAY ==
--- NOTE | 2025-04-03 13:29 | MHC.OFFVIS ---
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 Set Up Operator Required: No Allergies clindamycin Allergy (Severe, Verified 04/03/25 13:30) stomach pain amoxicillin (AMOXICILLIN) Allergy (Unknown, Verified 04/03/25 13:30) WITH COLVLANHIC ACID - CAN TAKE PLAIN AMOXICILLIN azithromycin (From ZITHROMAX) Allergy (Unknown, Verified 04/03/25 13:30) SAME LEVAQUIN codeine (CODEINE) Allergy (Unknown, Verified 04/03/25 13:30) ANYTHING WITH 'ANY' MAKES ME GO INTO SHOCK dexamethasone (DEXAMETHASONE) Allergy (Unknown, Verified 04/03/25 13:30) UNKNOWN Iodinated Contrast Media (IV CONTRAST) Allergy (Unknown, Verified 04/03/25 13:30) I GO OUT OF IT levofloxacin (From LEVAQUIN) Allergy (Unknown, Verified 04/03/25 13:30) TACHYCARDIA/HTN/BURNING ALL OVER paroxetine (From PAXIL) Allergy (Unknown, Verified 04/03/25 13:30) BURNING UP THROUGH HEAD sertraline (From ZOLOFT) Allergy (Unknown, Verified 04/03/25 13:30) STOMACH PROBLEMS Sulfa (Sulfonamide Antibiotics) (SULFA (SULFONAMIDE ANTIBIOTICS)) Allergy (Unknown, Verified 04/03/25 13:30) SICK TO STOMACH cephelexin Allergy (Mild, Uncoded 04/03/25 13:30) gi issues HPI Comments Details: 84y/o female comes for evaluation of headaches . The headaches started 5-6 mths ago. Its a holocranial headache that wakes her up from sleep . she describes aa a sharp shooting pain 10/10 lasting 15 min . she usually get out of her bed and walk around. no nausea, photophobia, phonophobia, blurred vision, nausea. she tried tylenol didnt help. 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 No neck pain , no numbness or tingling.she has Polymyalgia Rheumatica on prednisone. 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, estrogen receptor positive Lumbar spinal stenosis IBS (irritable bowel syndrome) Hypoxia Hypothyroidism Hyperlipidemia HTN (hypertension) Hiatal hernia Retinal detachment GERD (gastroesophageal reflux disease) Foot pain Esophagitis Diverticulitis Cataract Carcinoma of central portion of breast Earache symptoms in both ears 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 Atrophic vaginitis Arthritis Anxiety Allergic rhinitis Surgical History (Updated 04/03/25 @ 13:42 by Patricia Cameron CMA) Hx of foot operation H/O: hysterectomy H/O section H/O mastectomy Family History Father CAD (coronary artery disease) Brother Prostate CA Brother CAD (coronary artery disease) Sister Cancer, colon Social History Alcohol intake: never Patient Tobacco Use Status: Never used Tobacco Physical Exam Vital Signs: Last Vital Signs Pulse 68 04/03/25 13:30 BP 180/80 H 04/03/25 13:30 Pulse Ox 94 04/03/25 13:30 Oxygen Delivery Method Room Air 04/03/25 13:30 BMI result Body Mass Index 35.7 Const General: cooperative, comfortable and no acute distress Orientation/consciousness: patient oriented x3 Eyes Pupils: Equal, round and reactive pupils present Neuro Other: antalgic Neck mild decreased range of motion Mild weakness of legs General: patient oriented x3, tone normal, moves all extremities and no focal motor deficits Cranial nerves: Yes Equal, round and reactive pupils present, Yes Bilaterally intact EOM present, Yes Nystagmus not present, Yes Normal facial strength present, Yes Midline tongue present and Yes Symmetric palate elevation present Cognition (Neuro): normal cognition Gait exam (Neuro): Antalgic gait present Motor exam (neuro): Normal motor muscle tone present throughout Deep tendon reflexes (DTR's): Right triceps reflex intensity grade: 1+, Left triceps reflex intensity grade: 1+, Rt Biceps (C5, C6): 1+, Left biceps reflex intensity grade: 1+, Right brachioradialis reflex intensity grade: 1+, Left brachioradialis reflex intensity grade: 1+, Right patellar reflex intensity grade: 1+ and Left patellar reflex intensity grade: 1+ Coordination: [id number]-uz-[id number] test normal Assessment & Plan Assessment & Plan (1) Hypnic headache: Code(s): G44.81 - Hypnic headache Category: Medical (2) Chronic headache disorder: Code(s): R51.9 - Headache, unspecified; G89.29 - Other chronic pain Qualifiers: Headache type: unspecified Intractability: not intractable Qualified Code(s): R51.9 - Headache, unspecified; G89.29 - Other chronic pain Plan Declines sleep study I will trial her on melatonin 3mg qhs Continue O2 2 LPM during sleep. Medications: New melatonin 3 mg PO BEDTIME 90 caps 0RF sleep Coding Level of Care Code New Pt Level 4 (79039) Complex EM visit Add On G2211 Diagnoses Hypnic headache G44.81 Chronic nonintractable headache, unspecified headache type R51.9; G89.29 Headache type: unspecified Intractability: not intractable
[2025-04-03 13:30] VITALS: BP 180/80; PULSE 68; O2SAT 94; BMI 35.7
--- OUTSIDE RECORDS SUMMARY | 2025-04-03 13:45 | XMS_ITS | Patient Health Record ---
Author Organization [facility] Address [address] [place] [address] Care Team Providers Care Stave Planer Tender Name Role Phone Mer Arevalo Primary Care Provider Lance Kim Unavailable [phone] Allergies Allergen (clinical drug ingredient) Drug/Non Drug Allergy documented on EMR Reaction Allergy Type Onset Date Status Amoxicillin with Colvlanhic Acid (uncoded) Unknown Allergy Active No for Test (uncoded) Unknown Allergy Active triamcinolone Triamcinolone (uncoded) Unknown Allergy Active lidocaine Zylocaine (uncoded) anything gerardo ne makes me go into shock Allergy Active dexamethasone Dexamethasone Unknown Drug Allergy Active Levaquin heart races blood pressure goes up burning all over body Drug Allergy Active paroxetine Paxil burning up through head Drug Allergy Active sertraline Zoloft stomach problems Drug Allergy Active sulfa sick to stomach Drug Allergy Active codeine Codeine anything sammie makes me go into shock Drug Allergy Active Novacaine anything sammie makes me go into shock Drug Allergy Active Reason For Referral No Information Medications Medication SIG (Take, Route, Frequency, Duration) Notes Start Date End Date Status Polyethylene Glycol 3350 - MIX ONE CAPFU L IN 8 OUNCES OF WATER, JUICE, OR TEA AND DRINK DAILY Oral; Duration: 30 Active Glucosamine 1500 Complex - Orally Active vitamin Active hydroCHLOROthiazide 25 MG TAKE ONE TABLE T BY MOUTH EVERY DAY Oral; Duration: 30 Active Vitamin C 500 MG 1 tablet Orally Once a day Active Krill Oil Plus - Orally Act hong Clobetasol Propionate 0.05 % APPLY IN TH E MORNING AND EVENING TO AREA OF DERMATITIS ON ELBOWS FOR 2 WEEKS ON, 1 WEEK OFF REPEAT NEEDED. NOT FOR FACE OR BODY FOLDS External; Duration: 15 Not-Taking Lansoprazole 15 MG TAKE ONE CAPSULE BY MOUTH EVERY DAY Oral; Duration: 90 Active Aspirin 81 MG 1 tablet Orally Once a day 09/28/2016 Not-Taking Potassium 75 MG 1 tablet Orally Once a day Active Atenolol 25 MG TWO TABLETS EVERY DAY.. Oral; Duration: 90 Active predniSONE 2.5 MG TAKE ONE TABLET BY MOUTH EVERY DAY Oral; Duration: 90 Active Calcium 500 MG 1 tablet with meals Orally Twice a day Active Red Yeast Rice 600 MG Orally Active Claritin Active Triazolam 0.25 MG (Schedule IV Drug) TAKE TWO TABLETS BY MOUTH AT BEDTIME Oral; Duration: 30 Active Levothyroxine Sodium 50 MCG TAKE ONE TAB LET BY MOUTH EVERY DAY Oral; Duration: 90 Active ALPRAZolam 0.5 MG (Schedule IV Drug) TAKE 1 TABLET BY MOUTH 3 TIMES DAILY NEEDED FOR ANXIETY. Oral; Duration: 30 Active Magnesium 200 MG 2 tablets with a meal Orally Once a day Active Apple Cider Vinegar 188 MG Orally Active Social History Tobacco Use: Social History Observation Description Date Details (start date - stop date) Former Smoker NA - NA Tobacco Use/Smoking Question Answer Notes Are you a: former smoker When did you stop smoking? 50 yrs ago Additional Findings: Tobacco Non-User Current no n-smoker Tobacco use other than smoking: Question Answer Notes Are you an other tobacco user? No Problems Problem Type SNOMED Code ICD Code Onset Dates Problem Status W/U Status Risk Notes Problem Acquired hallux valgus (06940855) Hallux valgus (acquired), left foot (M20.12) Active confirmed Problem Acquired hallux valgus (66991204) Hallux valgus (acquired), right foot (M20.11) Active confirmed Problem Acquired hammer toe of right foot (6059079110114 105) Other hammer toe(s) (acquired), right foot (M20.41) Active confirmed Problem Acquired hammer toe of left foot (4426912243289 103) Other hammer toe(s) (acquired), left foot (M20.42) Active confirmed Problem Raynaud's disease (283300717) Raynaud's syndrome without gangrene (I73.00) Active confirmed Plan Of Treatment Pending Test Test Name Order Date X ray : Foot, left 2V 09/28/2016 X ray : Foot, right 2V 09/28/2016 X ray : Foot, left 3V 05/04/2019 X ray : Foot, right 3V 05/04/2019 Insurance Providers Payer Name Payer Address Payer Phone Subscriber Number Group Number Insured Name Patient Relationship to Insured Coverage Start Date Coverage End Date Medicare National [employer] [address] [place] [address] [id number] Melchor Hernandez Self - patient is the insured [facility] [address] [place] [address] [id number] Melchor Hernandez Self - patient is the insured Medical (General) History Medical History History ICD Code Anxiety Back,Hip,and Knee pain Cataracts Chicken pox Diverticulosis Fibromyalgia Hiatal hernia Hypertension Measles Mumps Osteoporosis Gastroesophageal reflux disease (GERD) chronic sinusitis Thyroid disorder Diverticulitis Irritable bowel syndrome Arthritis trouble with esophagus Surgical History Surgery Date(Month/Year) eye surgery-retina 3 yrears ago Left foot surgery/Hammertoe 02/06/19
--- OUTSIDE RECORDS SUMMARY | 2025-04-03 13:45 | XMS_ITS | Clinical Summary ---
Author Organization [facility] Address [address] [place] [address] Care Team Providers Care Appeals Analyst Name Role Phone Mer Arevalo NP Primary Care Provider [phone] Surgical History Surgery Date Site/Laterality Comments CATARACT EXTRACTION PROCEDURE: HISTORICAL CATARACT REMOVAL SECTION PROCEDURE: HISTORICAL ; COMMENT: x 4 HYSTERECTOMY PROCEDURE: HISTORICAL HYSTERECTOMY BREAST BIOPSY Bilateral PROCEDURE: BX BREAST; PERC NEEDLE CORE W/IMAG GUID; COMMENT: DCIS bilateral OTHER SURGICAL HISTORY 02/18/2016 Right PROCEDURE: DE RHINP PRIM LAT&ALAR CRTLGS&/ELVTN NASAL TI; COMMENT: 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 OTHER SURGICAL HISTORY 02/12/2015 PROCEDURE: RADIOLOGIC EXAM ESOPHAGUS SINGLE CONTRAST STUDY; COMMENT: Modified BREAST LUMPECTOMY 07/18/2017 Bilateral PROCEDURE: HISTORICAL BREAST LUMPECTOMY APPENDECTOMY PROCEDURE:APPENDECTOMY SECTION PROCEDURE: SECTION EYE SURGERY PROCEDURE:EYE SURGERY OTHER SURGICAL HISTORY PROCEDURE:HEMORROIDECTOMY HERNIA REPAIR PROCEDURE:HERNIA REPAIR HYSTERECTOMY PROCEDURE:HYSTERECTOMY HAND SURGERY PROCEDURE:HAND SURGERY COLONOSCOPY PROCEDURE:COLONOSCOPY BREAST SURGERY Bilateral PROCEDURE:BREAST SURGERY;COMMENT:partial mastectomy TONSILLECTOMY PROCEDURE:TONSILLECTOMY VITRECTOMY 05/11/2018 Left PROCEDURE:VITRECTOMY;COMMENT:Proced ure: 25g VITRECTOMY, MEMBRANE PEELING, ENDO LASER LEFT EYE; Surgeon: Darin Patel MD; Location: [facility] MAIN OPERATING ROOM; Service: Ophthalmology; Laterality: Left; Medical History Medical History Date Comments GERD (gastroesophageal reflu x disease) 02/13/2018 DX:GERD (gastroesophageal re flux disease) IBS (irritable bowel syndrome) 02/13/2018 D X:IBS (irritable bowel syndrome) Hypertension 02/13/2018 DX:Hypertension Hypothyroidism 02/13/2018 DX:Hypothyroidis m Supplemental oxygen dependent 02/13/2018 DX :Supplemental oxygen dependent; COMMENT: Nightly History of squamous cell carcinoma 02/13/2018 DX:History of squamous cell carcinoma; COMMENT: 2015 Right nose Diverticulosis 02/13/2018 DX:Diverticulosi s; COMMENT: Diverticulitis Fatty liver 02/13/2018 DX:Fatty liver Inguinal hernia 02/13/2018 DX:Inguinal nidhi ia; COMMENT: bilateral Umbilical hernia 02/13/2018 DX:Umbilical he rnia Osteoarthritis 02/13/2018 DX:Osteoarthriti s; COMMENT: Lumbar spine 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 02/13/2018 DX: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; COMMENT: 2016 Lumpectomy, ER/DE positive, opted to forgo any RT, declined sytemic therapy as welll Abdominal pain DX:Abdominal julia n History of diverticulitis DX:His tory of diverticulitis COPD (chronic obstructive pu lmonary disease) ([facility] V24, [facility] V28) DX:COPD (chronic o bstructive pulmonary disease) ([facility]) Retinal detachment DX:Retinal de 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;COMMENT:2 L at night Cancer ([facility] V24, [facility] V28) DX:Cancer (HCC);COMMENT:breast cancer Hypothyroidism DX:Hypothyroidis m Sleep apnea, obstructive DX:Slee p apnea, obstructive;COMMENT:supplemental oxygen at night Anxiety DX:Anxiety Depression DX:Depression Skin cancer DX:Skin cancer;C OMMENT:nose Family History Medical History Relation Name Comments Prostate cancer Brother 1 Lung cancer Brother 2 Colon cancer Sister Relation Name Status Comments Brother 1 Brother 2 Sister Social History Tobacco Use Types Packs/Day Years Used Date Smoking Tobacco: Former Smokeless Tobacco: Never Alcohol Use Standard Drinks/Week Comments Yes 7 (1 standard drink = 0.6 oz pur e alcohol) Comments Unknown Sex and Gender Information Value Date Recorded Sex Assigned at Not on file Legal Sex Female 4:28 PM EST Gender Identity Not on file Sexual Orientation Not on file Obstetrics History Last Filed Vital Signs Vital Sign Reading Time Taken Comments Blood Pressure 150/62 04/27/2022 2:25 PM EDT Sitting Right arm Pulse 79 04/27/2022 2:25 PM EDT Temperature - - Respiratory Rate - - Oxygen Saturation - - Inhaled Oxygen Concentration - - Weight 71.7 kg (158 lb) 03/08/2023 2:53 PM EDT Height 154.9 cm (5' 1 ) 03/08/2023 2:53 PM EDT Body Mass Index 29.85 03/08/2023 2:53 PM EDT Plan of Treatment Health Maintenance Due Date Last Done Comments COVID-19 Vaccine (#1) 1945 DTaP,Tdap,and Td Vaccines (1 - Tdap) 1957 Hepatitis A Vaccines (1 of 2 - Risk 2-dose series) 1957 Pneumococcal Vaccine: 50+ Ye ars (1 of 2 - PCV) 1957 Zoster Vaccines (1 of 2) 1957 Hepatitis B Vaccines (1 of 3 - Risk 3-dose series) 1998 RSV Immunization Adult Patie nts (1 - 1-dose 75+ series) 2013 Cholesterol Screening (Lipid Panel) 08/06/2022 Falls Risk Assessment 08/06/2022 Osteoporosis Screening (Bone Density Screening) 08/06/2022 Social Influencers of Health Screening 08/06/2022 Hypertension/CHF/CAD Annual BMP Blood Test 08/11/2022 Depression Screening 08/29/2024 Influenza Vaccine (#1) 2025 04/27/2017 HIB Vaccines Aged Out No longer eligi ble based on patient's age to complete this topic HPV Vaccines Aged Out No longer eligi ble based on patient's age to complete this topic IPV Vaccines Aged Out No longer eligi ble based on patient's age to complete this topic MMR Vaccines Aged Out No longer eligi ble based on patient's age to complete this topic Meningococcal ACWY Vaccine Aged Out N o longer eligible based on patient's age to complete this topic Meningococcal B Vaccine Aged Out No l onger eligible based on patient's age to complete this topic RSV Immunization Patients Un michael 20 months Aged Out No longer eligible b ased on patient's age to complete this topic Varicella Vaccines Aged Out No longer eligible based on patient's age to complete this topic Care Teams Appeals Analyst Relationship Specialty Start Date End Date Mer Arevalo NP [address] [place] [id number] PCP - General Nurse Practitioner 05/05/18
--- OUTSIDE RECORDS SUMMARY | 2025-04-03 13:45 | XMS_ITS | Clinical Summary ---
Author Organization [facility] Address [address] [id number] Care Team Providers Care Chair Spring Assembler Name Role Phone Mre Arevalo NP Primary Care Provider [phone] Allergies Active Allergy Reactions Criticality Noted Date Comments Amoxicillin-Pot Clavulanate Other (See Comments) 05/09/2018 Headache, nausea Codeine Hives 05/09/2018 Dexamethasone Other (See Comments) 05/09/2018 Eye drops, increased her blood pressure Epinephrine 12/23/2021 Levofloxacin 05/09/2018 Procaine 05/09/2018 Pt unsure if this was a true allergy or she experienced side effects from epinephrine added Paroxetine 05/09/2018 Azithromycin 05/09/2018 Sertraline 05/09/2018 Medications Medication Sig Dispensed Refills Start Date End Date Status polyethylene glycol (MIRALAX) packet Take 17 g by mouth daily. 0 Active atenolol (TENORMIN) tablet 25 mg Take 25 mg by mouth 2 (two) times a day. 0 Active ALPRAZolam (XANAX) 0.5 MG tablet Take 0.5 mg by mouth 3 (three) times a day as needed for sleep. 0 Active triazolam (HALCION) 0.25 MG tablet Take 0.25 mg by mouth every night at bedtime as needed. 0 Active hydroCHLOROthiazide (HYDRODIURIL) tablet 25 mg Take 25 mg by mouth daily. 0 Active lansoprazole (PREVACID) 15 MG capsule Take 15 mg by mouth daily. 0 Active Loratadine (CLARITIN) 10 MG CAPS Take by mouth daily. 0 Active predniSONE (DELTASONE) tablet 2.5 mg Take 2.5 mg by mouth daily. 0 Active levothyroxine (SYNTHROID, LEVOXYL) tablet 50 mcg Take 50 mcg by mouth every morning on an empty stomach. 0 Active Magnesium Oxide 400 (241.3 Mg) MG TABS tablet Take 400 mg by mouth daily. 0 Active KRILL OIL PO Take by mouth. 0 Active vitamin C (ASCORBIC ACID) 500 MG tablet Take 500 mg by mouth daily. 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 Foot pain, bilateral 05/16/2019 Hammer toes of both feet 05/16/2019 Contracture of joint of left foot 05/16/2019 Umbilical hernia 02/13/2018 Supplemental oxygen dependent 02/13/2018 Overview: Overview: Nightly Osteoarthritis 02/13/2018 Overview: Overview: Lumbar spine Inguinal hernia 02/13/2018 Overview: Overview: bilateral IBS (irritable bowel syndrome) 02/13/2018 Hypothyroidism 02/13/2018 Hypertension 02/13/2018 History of squamous cell carcinoma 02/13/2018 Overview: Overview: 2016 right nose GERD (gastroesophageal reflux disease) 8 Fatty liver 02/13/2018 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 02/13/2018 Overview: Overview: 2017 Lumpectomy, ER/SD positive, opted to forgo any RT, declined sytemic therapy as welll Diverticulosis 02/13/2018 Overview: Overview: Diverticulitis Social History Tobacco Use Types Packs/Day Years Used Date Smoking Tobacco: Former Smokeless Tobacco: Never Alcohol Use Standard Drinks/Week Comments Yes 7 (1 standard drink = 0.6 oz pur e alcohol) Sex and Gender Information Value Date Recorded Sex Assigned at Not on file Gender Identity Not on file Sexual Orientation Not on file Job Start Date Occupation Industry Not on file Not on file Not on file Last Filed Vital Signs Vital Sign Reading Time Taken Comments Blood Pressure 150/62 04/27/2022 2:25 PM EDT Pulse 79 04/27/2022 2:25 PM EDT Temperature 36.9 C (98.4 F) 04/27/2022 2:25 PM EDT Respiratory Rate 18 05/11/2018 5:23 PM EDT Oxygen Saturation 92% 04/27/2022 2:25 PM EDT Inhaled Oxygen Concentration - - Weight 72.1 kg (159 lb) 04/27/2022 2:25 PM EDT Height 154.9 cm (5' 1 ) 04/27/2022 2:25 PM EDT Body Mass Index 30.04 04/27/2022 2:25 PM EDT Plan of Treatment Health Maintenance Due Date Last Done Comments COVID-19 Vaccine (#1) 1943 Pneumococcal Vaccine (1 of 2 - PCV) 1944 Depression Screening 1950 Preventative Health Evaluation 1956 DTap / Tdap / Td (1 - Tdap) 1957 Shingrix-Zoster Vaccine (1 of 2) 1957 Fall Risk Assessment 2003 Osteoporosis Screening (DEXA Scan) 2003 RSV Adult > 60+ Yrs or Pregn ant (1 - 1-dose 75+ series) 2013 Influenza Vaccine (#1) 2025 Hepatitis B Vaccines Aged Out No long er eligible based on patient's age to complete this topic RSV Ped < 20 months Aged Out No longe r eligible based on patient's age to complete this topic Advance Directives For more information, please contact: [phone] Latest Code Status on File Code Status Date Activated Date Inactivated Comments Full Code 05/11/2018 3:46 PM 05/12/2018 12:15 AM This code status was ascertained in the following way: discussed preop . Care Teams Chair Spring Assembler Relationship Specialty Start Date End Date Mer Arevalo NP [address] [place] [address] PCP - General Nurse Practitioner 05/05/18
== END 2025-04-03 15:15 | disposition home or self-care (01) ==
LOC: HO.HSMS 13:10
PROVIDERS: PCP Physician Assistant Medical; Visit Provider Psychiatry & Neurology Neurology
DX: G44.81 Hypnic headache (principal); G89.29 Other chronic pain
CPT/HCPCS: 99204; G2211

== ENCOUNTER → 2025-04-03 13:09 | Outpatient (BNVA) | payer MEDICARE, SELFPAY | PROVIDERS: PCP Physician Assistant Medical; Visit Provider Psychiatry & Neurology Neurology | DX: G89.29 Other chronic pain (principal); Z99.81 Dependence on supplemental oxygen; Z79.899 Other long term (current) drug therapy | CPT/HCPCS: 99202 ==

== ENCOUNTER 2025-06-05 12:36 | Outpatient (REF) | payer MEDICARE, SELFPAY ==
--- NOTE | ~2025-06-05 | XR_ITS ---
EXAMINATION: X-ray lumbar spine CLINICAL INFORMATION: Spinal stenosis, neurogenic claudication COMPARISON: None TECHNIQUE: 4 views, including flexion and extension views. FINDINGS: Diffuse bone demineralization. Moderate levoconvex scoliosis, with some degree of vertebral rotation. Vertebral body heights are maintained. No evidence of acute compression fracture. Question mild anterolisthesis of L4 on L5. The vertebral body sagittal alignment otherwise appears relatively maintained, allowing for the scoliotic curvature. Multilevel disc degenerative changes, more prominent findings of severe disc degeneration at L2-3, L3-4. Multilevel facet degeneration. No significant subluxation is identified on the flexion-extension views, within the limitations of the study. Multilevel degeneration the visualized lower thoracic spine. Mild T11 vertebral body height loss, appearing chronic. Prominent vascular calcifications present. No suspicious soft tissue calcification seen. XR/XR lumbar spine 4V min IMPRESSION: 1. Diffuse bone demineralization. This limits evaluation. 2. Moderate levoconvex scoliosis. Advanced lumbar spondylosis, detailed above. 3. No radiographic evidence of acute fracture. 4. Further evaluation with CT or MRI as clinically indicated.. 5. Mild T11 vertebral body height loss. Electronically signed by: Sy Fernandes MD 06/05/2025 02:44 PM EDT
== END 2025-06-05 12:37 | disposition home or self-care (01) ==
LOC: HO.HOSX 12:36
PROVIDERS: PCP Physician Assistant Medical; Visit Provider Neurological Surgery
DX: M48.062 Spinal stenosis, lumbar region with neurogenic claudication (principal)
CPT/HCPCS: 72110; 99202

== ENCOUNTER 2025-06-05 12:36 | Outpatient (AMB) | payer MEDICARE, SELFPAY ==
--- NOTE | 2025-06-05 13:00 | HO.SPINEOV ---
Vital Signs 06/05/25 13:05 Height 5 ft Weight 162 lb BMI 31.6 Intake Visit Reasons: LBP Intake Note: Mrs. Hernandez is here today c/o Low back pain and Leg with weakness. Hogshead Stripper Required: No Allergies clindamycin Allergy (Severe, Verified 06/05/25 13:01) stomach pain amoxicillin (AMOXICILLIN) Allergy (Unknown, Verified 06/05/25 13:01) WITH COLVLANHIC ACID - CAN TAKE PLAIN AMOXICILLIN azithromycin (From ZITHROMAX) Allergy (Unknown, Verified 06/05/25 13:01) SAME LEVAQUIN codeine (CODEINE) Allergy (Unknown, Verified 06/05/25 13:01) ANYTHING WITH 'ANY' MAKES ME GO INTO SHOCK dexamethasone (DEXAMETHASONE) Allergy (Unknown, Verified 06/05/25 13:01) UNKNOWN Iodinated Contrast Media (IV CONTRAST) Allergy (Unknown, Verified 06/05/25 13:01) I GO OUT OF IT levofloxacin (From LEVAQUIN) Allergy (Unknown, Verified 06/05/25 13:01) TACHYCARDIA/HTN/BURNING ALL OVER paroxetine (From PAXIL) Allergy (Unknown, Verified 06/05/25 13:01) BURNING UP THROUGH HEAD sertraline (From ZOLOFT) Allergy (Unknown, Verified 06/05/25 13:01) STOMACH PROBLEMS Sulfa (Sulfonamide Antibiotics) (SULFA (SULFONAMIDE ANTIBIOTICS)) Allergy (Unknown, Verified 06/05/25 13:01) SICK TO STOMACH cephelexin Allergy (Mild, Uncoded 04/03/25 13:30) gi issues Physical Exam Vital Signs: BMI result Body Mass Index 31.6 Assessment & Plan Assessment & Plan (1) Lumbar stenosis with neurogenic claudication: Code(s): M48.062 - Spinal stenosis, lumbar region with neurogenic claudication Category: Medical Plan Dear colleague Thank you for referring Melchor Hernandez to the office today with a chief complaint of bilateral leg pain. HPI: This 84-year-old female suffering from progressive pain radiating down both legs with the left side is more affected than the right side. The pain comes with walking and standing. She used to be able to lean over a cart that would allow her to to do her groceries. However, this is no longer possible. She can hardly stand or walk before the symptoms start. The pain has significantly reduced her social activities. The pain radiates from the back into the legs. She states that she had an injection done in the left side that gave her more leg pain and has not recovered since then. She also states that when she walks more her left leg swells. She is taking a diuretic. She denies weakness. The following conservative treatment options were tried without success antiinflammatories, tylenol, physical therapy, cortisone shots PMH: Double mastectomy, skin cancer, hypothyroidism Medications: Either Dyazide, lansoprazole, levothyroxine, loratadine Allergies: Clindamycin, amoxicillin, codeine dexamethasone contrast, levofloxacin, paroxetine, sertraline, sulfa drugs Social history: for 65 years. Nonsmoker. Physical Exam: Pleasant female. She ambulates with a walker in a flexed position. There is edema of the left lower leg. Straight leg raise is negative. No motor or sensory deficits. The symptoms started down her left leg after standing for 1 minute in the office. Radiological Studies: MRI done at [facility] on 05/07/2025 shows multilevel spinal stenosis L2-3, L3-4, L4-5, which is most severe at L4-L5. A dynamic lumbar x-rays SHOW NO SIGNS OF INSTABILITY. Impression/Plan: THIS PATIENT IS SUFFERING FROM NEUROGENIC CLAUDICATION DUE TO SEVERE L4-5 SPINAL STENOSIS. I OFFERED HER A LUMBAR DECOMPRESSION L4-5. SHE IS SCHEDULED FOR 08/01/2025. SHE WILL GET PREOPERATIVE CLEARANCE FROM HER WATER ATTENDANT. APPARENTLY SHE HAS AN ASYMPTOMATIC BUNDLE BRANCH BLOCK. HER LAST GENERAL ANESTHESIA WAS IN 2022 WITHOUT COMPLICATIONS. Thank you for allowing me to participate in your patients care. total time spent was 50 minutes in counseling ,coordination of plan, personal review of imaging, surgical decision making and subsequent plan Sourav Arboleda MD, PhD Spine Fellowship Trained Neurosurgeon Director, [facility] Orders: Orders XR lumbar spine 4V min Today M48.062 - Spinal stenosis, lumbar region with neurogenic claudication Coding Level of Care Code New Pt Level 4 (28787) Diagnoses Lumbar stenosis with neurogenic claudication M48.062
[2025-06-05 13:05] VITALS: BMI 31.6
== END 2025-06-05 14:16 | disposition home or self-care (01) ==
LOC: HO.HNS 12:37
PROVIDERS: PCP Physician Assistant Medical; Visit Provider Neurological Surgery
DX: M48.062 Spinal stenosis, lumbar region with neurogenic claudication (principal)
CPT/HCPCS: 99204

== ENCOUNTER → 2025-06-05 13:32 | Outpatient (BNV) | payer MEDICARE, SELFPAY | PROVIDERS: PCP Physician Assistant Medical; Visit Provider Radiology Diagnostic Ultrasound | DX: M48.062 Spinal stenosis, lumbar region with neurogenic claudication (principal) | CPT/HCPCS: 72110 ==

== ENCOUNTER 2025-08-01 07:36 | Day surgery (SDC) | payer MEDICARE, SELFPAY ==
--- OUTSIDE RECORDS SUMMARY | 2025-07-17 18:30 | XMS_ITS | Data Portability ---
Author Organization [facility] Address [address] [place] [id number] Care Team Providers Care Oil And Gas Principal Name Role Phone MAIN OFFICE Primary Care [...] treated for acute diverticulitis since 10/11 from [facility], originally on Flagyl but changed to Augmentin [...] after care of this patient [facility]. simonacee Not available 10/18/2021 14:50:55 07/19/2022 07/19/2022 Overview/History [...] upset stomach w/o sig NVD. Tylenol and [place] cough drops have been helping w/ her [...] IA, respirato ry specimen 2021 022 crumplik [facility], [address] [place] [address], [address], 14:40:08 Referral None recorded. Procedures None recorded. Surgeries None recorded. Imaging None recorded. Medication Orders neomycin- polymyxin -hydrocor t 3.5 mg-10,000 unit/mL-1 % ear drops,aneta p 2019 020 [facility], [address] [place] [address], [place], [address], 13:19:32 Patient TargetsNo targets recorded. Patient Instructions Encounter Date Encounter Id Patient Instructions Last Modified By Organization Details Last Modified Time 05/03/2020 [id number] ear infection (otitis media): care instructions vivian Not available 05/03/2020 13:07:15 Thank you for yo ur [facility]. We cannot always find the exact [...] in your condition between 8am-10pm, please call [facility] at [phone] to help navigate your care. vivian Not available 05/03/2020 13:07:01 10/18/2021 [id number] -You were seen today for lower abdominal [...] ve Not Available [facility] [address] [place], [address], 07/19/2022 14:38:37 07/19/20 22 07/19/2022 rapid SARS CoV 2 Ag, QL IA, respi rator y speci men Control Visual ized/V alid Not Available [facility] [address] [place], [address], 07/19/2022 14:38:37 07/19/20 22 07/19/2022 rapid SARS CoV 2 Ag, QL IA, respi rator y speci men Location [facility], [address] [place] [address], [id number] Not Available [facility] [address] [place], [address], 07/19/2022 14:38:37 Result Notes None recorded. Procedures Surgical History Date Name Laterality Status Provider Name and Address Organization Details Recorded Time 07/19/20 Medication Review completed LIONEL Whitlock [address] [place], [address], [place] [facility] 07/19/2022 14:40:29 Imaging Results None recorded. Procedure Notes None recorded. Medical Equipment None Reported. Allergies Allergen ID Allergen Name Allergen Category Reaction Reaction Severity Criticality Documentation Date Start Date Code Code System Note Provider Name and Address Organization Details Recorded Time 199191 clindamyc in Not available Not available Not available Not available 05/03/2020 2582 RxNorm YOLI SU NP [address] [place], [address], [place] [facility] 12:49:13 [id number] Augmentin medicatio n Not available Not available Not available 05/03/2020 13427 2 RxNorm YOLI SU NP [address], [place], [address], [place] [facility] 0 12:49:24 [id number] Zoloft medicatio n Not available Not available Not available 05/03/2020 26024 RxNorm YOLI SU , CLEAN ENERGY POLICY ANALYST [address], [place], [address], [place] [facility] 0 12:49:33 [id number] codeine medicatio n Not available Not available Not available 05/03/2020 2670 RxNorm YOLI SU , CLEAN ENERGY POLICY ANALYST [address], [facility] [place], [address], [place] [facility] 0 12:49:47 [id number] procaine hydrochlo ride medicatio n Not available Not available Not available 05/03/2020 68520 8 RxNorm YOLI SU , CLEAN ENERGY POLICY ANALYST [address], [facility] [place], [address], [place] [facility] 0 12:50:18 [id number] Xylocaine medicatio n Not available Not available Not available 05/03/202002157 8 RxNorm YOLI SU , CLEAN ENERGY POLICY ANALYST [address], [facility] [place], [address], [place] [facility] 0 12:50:46 [id number] Levaquin medicatio n Not available Not available Not available 05/03/2020 03888 2 RxNorm YOLI SU , CLEAN ENERGY POLICY ANALYST [address], [facility] [place], [address], [place] [facility] 0 12:50:56 [id number] Zithromax medicatio n Not available Not available Not available 05/03/2020 55143 4 RxNorm YOLI SU , CLEAN ENERGY POLICY ANALYST [address], [place], [address], [place] [facility] 0 12:51:09 [id number] Substance with sulfonami de structure and antibacte rial mechanism of action (substanc e) medicatio n Not available Not available Not available 05/03/2020 68934 8003 SNOMED YOLI SU , CLEAN ENERGY POLICY ANALYST [address], [facility], [address], [place] [facility] 0 12:51:16 [id number] dexametha sone medicatio n Not available Not available Not available 05/03/2020 3264 RxNorm YOLI SU , CLEAN ENERGY POLICY ANALYST [address], [place], [address], [place] [facility] 0 12:51:23 [id number] triamcino lone medicatio n Not available Not available Not available 05/03/2020 79421 RxNorm YOLI SU , CLEAN ENERGY POLICY ANALYST [address], [place], [address], [place] [facility] [...] Not Available No t Available amoxicillin 875 mg-janiu m clavulanate 125 mg tablet TAKE ONE [...] flow rate Respiratory rate Body temperature Systolic And Diastolic Provider Name and Address Organization Details Last Updated DateTime 2 76 /min 100 % 100 % 2 L/min 16 /min 99.2 [degF] 128/66 mm[Hg] Not Available [facility] 2 13:17:38 Date Recorded Body temperature Respiratory rate Oxygen saturation Oxygen saturation in Arterial blood by Pulse oximetry Heart rate Systolic And Diastolic Provider Name and Address Organization Details Last Updated DateTime 0 99.3 [degF] 16 /min 94 % 94 % 80 /min 160/80 mm[Hg] Not Available [facility] 0 12:50:58 Date Recorded Heart rate Oxygen saturation Oxygen saturation in Arterial blood by Pulse oximetry Respiratory rate Body temperature Systolic And Diastolic Provider Name and Address Organization Details Last Updated DateTime 2 76 /min 94 % 94 % 20 /min 101.1 [degF] 118/58 mm[Hg] Not Available [facility] 2 14:35:55 Social History Question Answer Notes LastModified by Organizat ion Details LastModified Time Tobacco Smoking Status Former Smoker YOLI SU, CLEAN ENERGY POLICY ANALYST [address] [facility], [place], [address], [place] [facility] 05/03/2020 12:55:53 Do You [...] Visiting Friends Or Family Or Going To Sikhism Or Club Meetings) 3 Or 4 Times Per Week Information not available 05/03/2020 Excessive Alcohol Or Drug Use No Vodka And [place] With Dinner Nightly Information not available 05/03/2020 [...] Artery Disease N CHF N Cancer Y Dementia N Stroke N Hypothyroidism Y Depression N COPD Y Asthma N High Cholesterol N Rheumatoid Arthritis N Pulmonary Embolism N Hypertension Y A-fib N Kidney Disease N Gynecological HistoryNo gynecological history recorded. Obstetrics History GPAL:G 0 P 0 0 0 0 Past Encounters Encounter ID Performer Location Encounter Start Date Encounter Closed Date Diagnosis/Indication Diagnosis SNOMED-CT Code Diagnosis ICD10 Code Diagnosis IMO Codes Diagnosis Note [id number] Y[facility]I SU [facility] [address] [place] [address] 05/03/2020 12:46:56 05/07/2020 20:49:05 Acute otitis externa 68590587 H60.509 [id number] Heather Cervantes [facility] [address] [place] [address] 10/18/2021 13:08:18 10/19/2021 11:36:20 Diverticulitis of sigmoid colon 155231952 K57.32 Constipation 95479711 K5 9.00 Hemorrhoids 69282487 K64 .9 [id number] LIONEL Dill [facility] [address] [place] [address] 07/19/2022 14:18:51 08/03/2022 11:23:48 COVID-19 168937801 U07.1 Health Concerns Section Related Observation LastModified by Organization Detai ls LastModified Time None Recorded Concern Status LastModified by Organization Details LastModified Time None Recorded Advance Directives Directive Y: Payers Insurance Date Sequence Insurance Name Policy Number Policy Acosta Covered Member ID Acosta Member ID Guarantor Name 08/03/2022 2 [place] [id number] Melchor Hernandez [id number] Melchor Hernandez 10/18/2021 1 *SELF PAY* Melchor Hernandez [id number] Melchor Hernandez 07/19/2022 1 [place] [employer] Melchor Hernandez [id number] Melchor Hernandez Notes Date Note Type [...] ear. YOLI SU, CHERYL [address], [place], [address], [place] [facility] 05/03/2020 20:45:49 2 text/html 81 year old female known to but new to provider with a history of diverticulosis/acut e diverticulitis, HTN, breast CA, hypothyroid, PMR, IBS being seen today for lower abd cramping, constipation. She has been treated for acute diverticulitis after [facility] ER visit on 10/11 for which she [...] oxygen at 2lpm now at 100%. Heather Cervantes NP [address], [place], [address], [place] [facility] 10/18/2021 14:52:24 2 text/html 82 YO F known to but new to provider4 days of URI sxs that are consistent w/ COVID 19She did a test earlier this week that was positive but she isnt sure she did it quite right Sore throat, fever, non-productive cough, runny stuffy nose, intermittent mild headaches, upset stomach w/o sig NVD.Tylenol and [place] cough drops have been helping w/ her sxs she reports. Nothing makes sxs worse.Denies weakness numbness, tingling, falls, visual changes, resp distress, chest pain. No other reportes sxs or concerns today. LIONEL Whitlock [facility] [address], [place], [address], [place] [facility] 07/19/2022 15:33:00 OBGyn Episode No OBEpisode recorded.
--- OUTSIDE RECORDS SUMMARY | 2025-07-17 18:30 | XMS_ITS | Clinical Summary ---
Author Organization [facility] Address [address] [place] [address] Phone Care Team Providers Care Grades 1 Thru 6 Home Teacher Name Role Phone Mer Arevalo NP Primary Care Provider [phone] Allergies Active Allergy Reactions Criticality Noted Date Comments Azithromycin Unknown,Palpitations Low 07/08/2015 Other Reaction(s): heart racing, increased BP Cephalexin GI intolerance 02/04/2018 Clavulanic Acid GI intolerance 07/08/2015 Clindamycin GI intolerance,Unknown 02/04/2018 Codeine Hives,Unknown 07/08/2015 Other Reaction(s): hives,shock Dexamethasone GI intolerance,Unknown, Other 07/08/2015 Eye drops, increased her blood pressure Epinephrine 12/23/2021 Other Reaction(s): [place] faint pt states elevated blood pressure and felt faint after epinephrine injection Ibuprofen 10/11/2024 Iodinated Contrast Media Swelling High 07/03/2025 Pt states severe allergic reaction with swelling Levofloxacin Unknown,Palpitations Low 07/08/2015 Other Reaction(s): heart races,increased BP Lidocaine Anaphylaxis High 07/08/2015 Metronidazole 10/11/2024 Paroxetine GI intolerance,Other 07/08/2015 Other Reaction(s): burig up through head i thought i was having a stroke Penicillins GI intolerance,Unknown, Other 02/04/2018 Headache, nausea Procaine Unknown 02/13/2018 Pt unsure if this was a true allergy or she experienced side effects from epinephrine added Sertraline GI intolerance,Unknown 07/08/2015 Sulfa (Sulfonamide Antibiotics) GI intolerance,Unknown 07/08/2015 Tetanus Antitoxin 02/13/2018 Medications hydroCHLOROthia zide (HYDRODIURIL) 25 mg tablet Take 1 tablet (25 mg total) by mouth 1 (one) time each day in the morning. 5 Active predniSONE (DELTASONE) 2.5 mg tablet Take 2 tablets (5 mg total) by mouth 1 (one) time each day. Active nystatin (MYCOSTATIN) cream Apply 1 Application topically 2 (two) times a day. 5 Active acetaminophen (TYLENOL) 500 mg tablet Take 1 tablet (500 mg total) by mouth every 8 (eight) hours if needed for mild pain. 5 Active ALPRAZolam (XANAX) 0.5 mg tablet Take 1 tablet (0.5 mg total) by mouth 3 (three) times a day if needed for anxiety. 8 Active triazolam (HALCION) 0.25 mg tablet Take 1 tablet (250 mcg total) by mouth at bedtime as needed for sleep. 5 Active lansoprazole (PREVACID) [address] capsule Take 2 capsules (30 mg total) by mouth 1 (one) time each day. 8 Active furosemide (LASIX) 40 mg tablet Take 1 tablet (40 mg total) by mouth 1 (one) time each day. Active levothyroxine (SYNTHROID, LEVOTHROID) 25 mcg tablet Take 1 tablet (25 mcg total) by mouth 1 (one) time each day. 5 Active atenoloL (TENORMIN) 25 mg tablet Take 2 tablets (50 mg total) by mouth 1 (one) time each day. 5 Active Hospital, Clinic, or Other Facility Administered Medication Ordered Dose Route Frequency Start Date End Date Status potassium chloride (KLOR-CON) packet 20 mEqIndications:Left leg swelling,Hypoxia,Metabolic alkalosis 20 mEq oral Daily 07/04/2025 07/07/2025 Ended Active Problems Problem Noted Date Diagnosed Date Acute hypoxemic respiratory failure (CMS/HCC V24, CMS/HCC V28) 07/03/2025 Encounters Date Type Department Care Team Description 07/03/2025 5:37 AM EST - 07/04/2025 3:10 PM EST Hospital Encounter [facility] [address] [place] [id number] Mango Monk MD Ziebro, John, MD Nasser, Nada S, MD Metabolic alkalosis (Primary Dx); Left leg swelling; Hypoxia; Contusion of left orbital tissues, initial encounter; Hypokalemia; Acute hypoxemic respiratory failure (CMS/HCC V24, CMS/HCC V28) Discharge Disposition: Home-Health Care [facility] from Last 3 Months Surgical History Surgery Date Site/Laterality Comments CATARACT EXTRACTION PROCEDURE: HISTORICAL CATARACT REMOVAL SECTION PROCEDURE: HISTORICAL ; COMMENT: x 4 HYSTERECTOMY PROCEDURE: HISTORICAL HYSTERECTOMY BREAST BIOPSY Bilateral PROCEDURE: BX BREAST; PERC NEEDLE CORE W/IMAG GUID; COMMENT: DCIS bilateral OTHER SURGICAL HISTORY 02/18/2016 Right PROCEDURE: HI RHINP PRIM LAT&ALAR CRTLGS&/ELVTN NASAL TI; COMMENT: [...] LEFT EYE; Surgeon: Darin Patel MD; Location: [facility] MAIN OPERATING ROOM; Service: Ophthalmology; Laterality: Left; [...] in situ (DCIS) of both breasts; COMMENT: 2017 Lumpectomy, ER/HI positive, opted to forgo any RT, declined sytemic therapy as welll Abdominal pain DX:Abdominal julia n History of diverticulitis DX:His tory of diverticulitis COPD (chronic obstructive pu lmonary disease) ([facility] V24, [facility] V28) DX:COPD (chronic o bstructive pulmonary disease) ([facility]) Retinal detachment DX:Retinal de 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;COMMENT:2 L at night Cancer ([facility] V24, [facility] V28) DX:Cancer ([facility]);COMMENT:breast cancer Hypothyroidism DX:Hypothyroidis m Sleep apnea, obstructive [...] drink = 0.6 oz pur e alcohol) Interpersonal Safety Answer Date Record ed Physical Abuse Unrecognized value 07/03/2025 Verbal Abuse Unrecognized value 07/03/2025 Comments Unknown Sex and Gender Information Value Date Recorded Sex Assigned at Not on file Legal Sex Female 4:28 PM EST Gender Identity Not on file Sexual Orientation Not on file Obstetrics History Last Filed Vital Signs Vital Sign Reading Time Taken Comments Blood Pressure 141/69 07/04/2025 7:31 AM EST Pulse 71 07/04/2025 7:31 AM EST Temperature 36.5 C (97.7 F) 07/04/2025 7:31 AM EST Respiratory Rate 16 07/04/2025 7:31 AM EST Oxygen Saturation 96% 07/04/2025 7:31 AM EST Inhaled Oxygen Concentration - - Weight 74.6 kg (164 lb 6.4 oz) 07/04/2025 6:00 A M EST Height 154.9 cm (5' 1 ) 07/03/2025 5:43 AM EST Body Mass Index 31.06 07/03/2025 5:43 AM EST Plan of Treatment Health Maintenance Due Date Last Done Comments COVID-19 Vaccine (#1) 1945 DTaP,Tdap,and Td Vaccines (1 - Tdap) 1957 Hepatitis A Vaccines (1 of 2 - Risk 2-dose series) 1957 Pneumococcal Vaccine: 50+ Years (1 of 2 - PCV) 1957 Zoster Vaccines (1 of 2) 1957 Hepatitis B Vaccines (1 of 3 - Risk 3-dose series) 1998 RSV Immunization Adult Patients (1 - 1-dose 75+ series) 2013 Cholesterol Screening (Lipid Panel) 08/06/2022 Medicare Annual Wellness Visit 08/06/2022 Osteoporosis Screening (Bone Density Screening) 08/06/2022 Social Influencers of Health Screening 08/06/2022 Depression Screening 08/29/2024 Influenza Vaccine (#1) 2025 04/27/2017 Falls Risk Assessment 07/04/2026 07/04/2025 Hypertension/CHF/CAD Annual BMP Blood Test 07/04/2026 07/04/2025, 07/03/2025, 07/03/2025 HIB Vaccines Aged Out No longer eligi [...] to complete this topic RSV Immunization Patients Under 20 months Aged Out No longer eligible b ased on patient's age to complete this topic Varicella Vaccines Aged Out No longer eligible based on patient's age to complete this topic Procedures Procedure Name Priority Date/Time Associated Diagnosis Comments PAREDES URINE CULTURE TUBE Routine 07/04/2025 9:50 AM EST URINALYSIS WITH REFLEX MICROSCOPIC AND CULTURE Routine 07/04/2025 9:50 AM EST URINALYSIS WITH REFLEX MICROSCOPIC AND CULTURE Routine 07/04/2025 9:50 AM EST PHOSPHORUS Add-On 07/04/2025 5:55 AM EST VITAMIN B12 Add-On 07/04/2025 5:55 AM EST C-REACTIVE PROTEIN Add-On 07/04/2025 5: 55 AM EST CBC WITH AUTO DIFFERENTIAL Routine 07/04/2025 5:55 AM EST CBC AND DIFFERENTIAL Routine 07/04/2025 5:55 AM EST MAGNESIUM Routine 07/04/2025 5:55 AM EST BASIC METABOLIC PANEL Routine 07/04/2025 5:55 AM EST ECG ANNOTATED 07/04/2025 CT MAXILLOFACIAL WO CONTRAST STAT 07/03/2025 5:21 PM EST HI CRITICAL CARE 30-74 MINUTES Routine 07/03/2025 5:00 PM EST B-TYPE NATRIURETIC PEPTIDE STAT 07/03/2025 4:03 PM EST NM LUNG PERFUSION IMAGING STAT 07/03/2025 1:50 PM EST THYROID STIMULATING HORMONE WITH REFLEX TO FREE T4 AND FREE T3 Add-On 07/03/2025 12:03 PM EST COMPREHENSIVE METABOLIC PANEL STAT 07/03/2025 12:[address] CHEST WO CONTRAST STAT 07/03/2025 8:52 AM EST Hypoxia VAS US DUPLEX LOWER EXT VENOUS LEFT STAT 07/03/2025 8:30 AM EST Left leg swelling ECG 12-LEAD STAT 07/03/2025 6:[address] CERVICAL SPINE WO CONTRAST STAT 07/03/2025 6:[address] HEAD WO CONTRAST STAT 07/03/2025 6 :23 AM EST CBC WITH AUTO DIFFERENTIAL STAT 07/03/2025 6:03 AM EST MAGNESIUM STAT 07/03/2025 6:03 AM EST BASIC METABOLIC PANEL STAT 07/03/2025 6:03 AM EST CBC AND DIFFERENTIAL STAT 07/03/2025 6:03 AM EST from Last 3 Months Results * Urinalysis with reflex microscopic and culture (07/04/2025 9:50 AM EST) Specific Calvin Urine 1.008 1.003 - 1.030 LAB URINALYSIS - AUTOMATED METHOD 07/04/2025 10:20 AM [facility] pH, Urine 7.5 5.0 - 8.0 pH LAB URINALYSIS - AUTOMATED METHOD 07/04/2025 10:20 AM [facility] Leukocytes, Urine Negative Negative LAB URINALYSIS - AUTOMATED METHOD 07/04/2025 10:20 AM [facility] Nitrite, Urine Negative Negative LAB URINALYSIS - AUTOMATED METHOD 07/04/2025 10:20 AM [facility] Protein, Urine Negative <=Trace mg/dL LAB URINALYSIS - AUTOMATED METHOD 07/04/2025 10:20 AM [facility] Glucose, Urine Negative Negative mg/dL LAB URINALYSIS - AUTOMATED METHOD 07/04/2025 10:20 AM [facility] Ketones, Urine Negative Negative mg/dL LAB URINALYSIS - AUTOMATED METHOD 07/04/2025 10:20 AM [facility] Urobilinogen, Urine 0.2 0.2 - 1.0 mg/dL LAB URINALYSIS - AUTOMATED METHOD 07/04/2025 10:20 AM [facility] Bilirubin, Urine Negative Negative LAB URINALYSIS - AUTOMATED METHOD 07/04/2025 10:20 AM [facility] Blood, Urine Negative Negative LAB URINALYSIS - AUTOMATED METHOD 07/04/2025 10:20 AM [facility] Urine Urine specimen obtained by clean catch procedure / Unknown Non-blood Collection / Unknown 07/04/2025 9:50 AM EST 07/04/2025 10:10 AM EST us Ariel Pacheco MD LAB URINE ORDERABLES Final Resu lt Performing Organization Address [facility]/ZIP Co de Phone Number [facility] [address] [place] [address], [place] [phone] * Paredes urine culture tube (07/04/2025 9:50 AM EST) Extra Tube Hold for add-ons. 07/04/2025 12:01 PM [facility] Comment:Auto resulted. Urine Urine specimen obtained by clean catch procedure / Unknown Non-blood Collection / Unknown 07/04/2025 9:50 AM EST 07/04/2025 10:10 AM EST us Ariel Pacheco MD LAB URINE ORDERABLES Final Resu lt Performing Organization Address City/[facility]/ZIP Co de Phone Number [facility] [address] [place] [address], [place] [phone] * (ABNORMAL) CBC auto differential (07/04/2025 5:55 AM EST) Only the most recent of2 resultswithin the time period is included. WBC 6.7 4.8 - 10.8 K/[facility] LAB HEMETOLOGY METHOD 07/04/2025 7:06 AM [facility] RBC 4.20 3.80 - 4.80 M/mcL LAB HEMETOLOGY METHOD 07/04/2025 7:06 AM [facility] Hemoglobin 13.1 11.5 - 16.0 g/dL LAB HEMETOLOGY METHOD 07/04/2025 7:06 AM [facility] Hematocrit 39.0 35.0 - 47.0 % LAB HEMETOLOGY METHOD 07/04/2025 7:06 AM [facility] MCV 94.0 79.0 - 98.0 FL LAB HEMETOLOGY METHOD 07/04/2025 7:06 AM [facility] MCH 31.6 27.0 - 32.0 pcg LAB HEMETOLOGY METHOD 07/04/2025 7:06 AM [facility] MCHC 33.6 32.0 - 37.0 g/dL LAB HEMETOLOGY METHOD 07/04/2025 7:06 AM [facility] RDW 14.9 11.0 - 15.0 % LAB HEMETOLOGY METHOD 07/04/2025 7:06 AM [facility] Platelets 207 130 - 400 K/mcL LAB HEMETOLOGY METHOD 07/04/2025 7:06 AM [facility] MPV 9.9 7.0 - 11.0 FL LAB HEMETOLOGY METHOD 07/04/2025 7:06 AM [facility] NRBC 0.0 <1.0 % LAB HEMETOLOGY METHOD 07/04/2025 7:06 AM [facility] NRBC Absolute 0.00 <0.10 K/mcL LAB HEMETOLOGY METHOD 07/04/2025 7:06 AM [facility] Neutrophils Relative 51.5 % LAB HEMETOLOGY METHOD 07/04/2025 7:06 AM [facility] Lymphocytes Relative 34.8 % LAB HEMETOLOGY METHOD 07/04/2025 7:06 AM [facility] Monocytes Relative 11.1 % LAB HEMETOLOGY METHOD 07/04/2025 7:06 AM [facility] Eosinophils Relative 1.3 % LAB HEMETOLOGY METHOD 07/04/2025 7:06 AM [facility] Basophils Relative 0.4 % LAB HEMETOLOGY METHOD 07/04/2025 7:06 AM [facility] Immature Granulocytes Relative 0.9 % LAB HEMETOLOGY METHOD 07/04/2025 7:06 AM [facility] Neutrophils Absolute 3.44 1.50 - 7.00 K/mcL LAB HEMETOLOGY METHOD 07/04/2025 7:06 AM [facility] Lymphocytes Absolute 2.33 1.00 - 5.00 K/mcL LAB HEMETOLOGY METHOD 07/04/2025 7:06 AM [facility] Monocytes Absolute 0.74 0.20 - 1.00 K/mcL LAB HEMETOLOGY METHOD 07/04/2025 7:06 AM [facility] Eosinophils Absolute 0.09 0.00 - 0.50 K/mcL LAB HEMETOLOGY METHOD 07/04/2025 7:06 AM [facility] Basophils Absolute 0.03 0.00 - 0.20 K/mcL LAB HEMETOLOGY METHOD 07/04/2025 7:06 AM [facility] Immature Granulocytes Absolute 0.06(H) 0.00 - 0.03 K/mcL LAB HEMETOLOGY METHOD 07/04/2025 7:06 AM [facility] Blood Venous blood specimen / Unknown Venipuncture / Unknown 07/04/2025 5:55 AM EST 07/04/2025 6:36 AM EST [facility] LAB BLOOD ORDERABLES Jackie nowak Result [facility] [address] [place] [address], * (ABNORMAL) C-reactive protein (07/04/2025 5:55 AM EST) C-Reactive Protein 4.28(H) <=0.50 mg/dL LAB CHEMISTRY METHOD 07/04/2025 10:02 AM EST [facility] Blood Venous blood specimen / Unknown Venipuncture / Unknown 07/04/2025 5:55 AM EST 07/04/2025 6:38 AM EST us Ariel Pacheco MD LAB BLOOD ORDERABLES Final Resu lt Performing Organization Address [facility] Co de Phone Number [facility] [address] [place] [address], * (ABNORMAL) Phosphorus (07/04/2025 5:55 AM EST) Phosphorus 2.3(L) 2.5 - 4.5 mg/dL LAB CHEMISTRY METHOD 07/04/2025 10:02 AM EST [facility] Blood Venous blood specimen / Unknown Venipuncture / Unknown 07/04/2025 5:55 AM EST 07/04/2025 6:38 AM EST us Ariel Pacheco MD LAB BLOOD ORDERABLES Final Resu lt Performing Organization Address [facility]/ZIP Co de Phone Number [facility] [address] [place] [address], * Magnesium (07/04/2025 5:55 AM EST) Only the most recent of2 resultswithin the time period is included. Magnesium 1.9 1.9 - 2.6 mg/dL LAB CHEMISTRY METHOD 07/04/2025 7:42 AM EST [facility] Blood Venous blood specimen / Unknown Venipuncture / Unknown 07/04/2025 5:55 AM EST 07/04/2025 6:38 AM EST [facility] LAB BLOOD ORDERABLES Jackie l Result Performing Organization Address [facility] Co de Phone Number [facility] [address] [place] [address], * (ABNORMAL) Vitamin B12 (07/04/2025 5:55 AM EST) [facility] Vitamin B-12 1,090(H) 250 - 900 pcg/mL LAB CHEMISTRY METHOD 07/04/2025 10:32 AM [facility] Blood Venous blood specimen / Unknown Venipuncture / Unknown 07/04/2025 5:55 AM EST 07/04/2025 6:38 AM EST Ariel Pacheco MD LAB BLOOD ORDERABLES Final Resu lt Performing Organization Address [facility] de Phone Number [facility] [address] [place] [address], * (ABNORMAL) Basic metabolic panel (07/04/2025 5:55 AM EST) Only the most recent of2 resultswithin the time period is included. [facility] Sodium 138 133 - 145 mmol/L LAB CHEMISTRY METHOD 07/04/2025 7:44 AM [facility] Potassium 3.3(L) 3.5 - 5.5 mmol/L LAB CHEMISTRY METHOD 07/04/2025 7:44 AM [facility] Chloride 98 96 - 110 mmol/L LAB CHEMISTRY METHOD 07/04/2025 7:44 AM [facility] CO2 34(H) 21 - 32 mmol/L LAB CHEMISTRY METHOD 07/04/2025 7:44 AM [facility] Anion Gap 6 3 - 11 LAB CHEMISTRY METHOD 07/04/2025 7:44 AM [facility] Glucose 106(H) 70 - 100 mg/dL LAB CHEMISTRY METHOD 07/04/2025 7:44 AM [facility] BUN 9 5 - 25 mg/dL LAB CHEMISTRY METHOD 07/04/2025 7:44 AM [facility] Creatinine 0.50 0.50 - 1.10 mg/dL LAB CHEMISTRY METHOD 07/04/2025 7:44 AM [facility] eGFR 91 >=60 mL/min/1. 73m2 LAB CHEMISTRY METHOD 07/04/2025 7:44 AM [facility] Comment:Calculation based on the Chronic Kidney Disease Epidemiology Collaboration (CKD-EPI) equation refit without adjustment for race. BUN/Creatinine Ratio 18.0 LAB CHEMISTRY METHOD 07/04/2025 7:44 AM [facility] Calcium 9.0 8.5 - 10.5 mg/dL LAB CHEMISTRY METHOD 07/04/2025 7:44 AM [facility] Blood Venous blood specimen / Unknown Venipuncture / Unknown 07/04/2025 5:55 AM EST 07/04/2025 6:38 AM EST us [facility] LAB BLOOD ORDERABLES Jackie l Result [facility] [address] [place] [address], * ECG-Annotated (07/04/2025) us Provider Onbase MD ECG ORDERABLES Final Result * CT Maxillofacial wo Contrast (07/03/2025 5:21 PM EST) Anatomical Region Laterality Modality Head and Neck Computed Tomogra phy 07/03/2025 6:08 PM EST Impressions 07/03/2025 6:08 PM EST No acute fracture. This document has been electronically signed by: Mu Ferro MD on 07/03/2025 18:08:29 Narrative 07/03/2025 6:08 PM EST INDICATION: nasal trauma CT maxillofacial without contrast Comparison: None provided Findings: No acute fractures. No dislocations. Temporomandibular joints are intact. Paranasal sinuses and mastoid air cells clear. Unremarkable orbital contents. No acute findings in the visualized brain. Intracranial atherosclerosis. Procedure Note Mu Ferro MD - 07/03/2025 INDICATION: nasal trauma CT maxillofacial without contrast Comparison: None provided Findings: No acute fractures. No dislocations. Temporomandibular joints are intact. Paranasal sinuses and mastoid air cells clear. Unremarkable orbital contents. No acute findings in the visualized brain. Intracranial atherosclerosis. IMPRESSION: No acute fracture. This document has been electronically signed by: Mu Ferro MD on 07/03/2025 18:08:[address] PROCEDURES Final R esult * HI CRITICAL CARE 30-74 MINUTES (07/03/2025 5:00 PM EST) Joo Farmer MD - 07/03/2025 5:00 PM EST Joo Jones MD 07/03/2025 5:00 PM Critical Care Performed by: Joo Jones MD Authorized by: Joo Jones MD Critical care provider statement: Critical care time (minutes): 31 Total face to face critical care time (minutes): 31 Critical care time was exclusive of: Separately billable procedures and treating other patients and teaching time Critical care was necessary to treat or prevent imminent or life-threatening deterioration of the following conditions: Metabolic crisis Critical care was time spent personally by me on the following activities: Development of treatment plan with patient or surrogate, discussions with primary provider, evaluation of patient's response to treatment, examination of patient, obtaining history from patient or surrogate, ordering and performing treatments and interventions, ordering and review of laboratory studies, ordering and review of radiographic studies, pulse oximetry, re-evaluation of patient's condition and review of old charts Face to face critical care was time spent personally by me on the following activities: Development of treatment plan with patient or surrogate, discussions with primary provider, evaluation of patient's response to treatment, examination of patient, obtaining history from patient or surrogate, ordering and performing treatments and interventions, ordering and review of radiographic studies, ordering and review of laboratory studies, pulse oximetry, re-evaluation of patient's condition and review of old charts I assumed direction of critical care for this patient from another provider in my specialty: no Care discussed with: admitting provider us Joo Jones MD IN CLINIC/BEDSIDE ORDERABLES Fin al Result * B-type natriuretic peptide (07/03/2025 4:03 PM EST) BNP 89 <=100 pcg/mL LAB CHEMISTRY METHOD 07/03/2025 4:47 PM EST [facility] Blood Venous blood specimen / Unknown Venipuncture / Unknown 07/03/2025 4:03 PM EST 07/03/2025 4:07 PM EST Mango Monk MD LAB BLOOD ORDERABLES Final Re sult [facility] [address] [place] [address], [place] [phone] * NM Lung Perfusion Imaging (07/03/2025 1:50 PM EST) Anatomical Region Laterality Modality Body Nuclear Medicine 07/03/2025 4:52 PM EST Impressions 07/03/2025 5:02 PM EST Nondiagnostic (low or intermediate probability) based on perfusion only modified PIOPED 2 criteria. -------- FINAL REPORT -------- Dictated By: Sagar Marie Dictated Date: 07/03/2025 16:52 ET Assigned Physician: Sagar Marie Reviewed and Electronically Signed By: Sagar Marie Signed Date: 07/03/2025 17:02 ET Workstation ID: [id number] Transcribed By: Self Edit Transcribed Date: 07/03/2025 16:52 ET Narrative 07/03/2025 5:02 PM EST INDICATION: Shortness of breath FINDINGS: Perfusion only scan was obtained. 5.8 mCi of technetium 99 M MAA intravenously for the perfusion portion with imaging obtained in different positions including anterior, posterior, BULGARIAN, GODWIN, LPO and GODWIN views. Relevant studies: Noncontrast chest CT from July 03, 2025. CTA cannot be performed secondary to severe iodinated contrast allergy. Perfusion portion of examination demonstrates large segmental defect along the posterior lateral aspect of the right upper lobe. Elevated diaphragm noted on the right side which corresponds to CT findings. Stripe sign noted on the lateral view on the left side without defects on the other views. Procedure Note Sagra Marie MD - 07/03/2025 INDICATION: Shortness of breath FINDINGS: Perfusion only scan was obtained. 5.8 mCi of technetium 99 M MAA intravenously for the perfusion portionwith imaging obtained in different positions including anterior,posterior, BULGARIAN, GODWIN, LPO and GODWIN views. Relevant studies: Noncontrast chest CT from July 03, 2025. CTA cannotbe performed secondary to severe iodinated contrast allergy. Perfusion portion of examination demonstrates large segmental defect alongthe posterior lateral aspect of the right upper lobe. Elevated diaphragmnoted on the right side which corresponds to CT findings. Stripe sign noted on the lateral view on the left side without defects onthe other views. IMPRESSION: Nondiagnostic (low or intermediate probability) based on perfusion onlymodified PIOPED 2 criteria. -------- FINAL REPORT -------- Dictated By: Sagar Marie Dictated Date: 07/03/2025 16:52 ET Assigned Physician: Sagar Marie Reviewed and Electronically Signed By: Sagar Marie Signed Date: 07/03/2025 17:02 ET Workstation ID: [id number] Transcribed By: Self Edit Transcribed Date: 07/03/2025 16:52 ET us [facility] IMG NM PROCEDURES Final Res ult * Thyroid stimulating hormone with reflex to free t4 and free t3 (07/03/2025 12:03 PM EST) TSH 1.27 0.40 - 4.00 mcIU/mL LAB CHEMISTRY METHOD 07/03/2025 5:31 PM EST [facility] Blood Venous blood specimen / Unknown Venipuncture / Unknown 07/03/2025 12:03 PM EST 07/03/2025 12:36 PM EST [facility] LAB BLOOD ORDERABLES Jackie l Result [facility] [address] [place] [address], * (ABNORMAL) Comprehensive Metabolic Panel (CMP) (07/03/2025 12:03 PM EST) Sodium 132(L) 133 - 145 mmol/L LAB CHEMISTRY METHOD 07/03/2025 1:40 PM [facility] Potassium 2.8(LL) 3.5 - 5.5 mmol/L LAB CHEMISTRY METHOD 07/03/2025 1:40 PM [facility] Chloride 89(L) 96 - 110 mmol/L LAB CHEMISTRY METHOD 07/03/2025 1:40 PM [facility] CO2 38(H) 21 - 32 mmol/L LAB CHEMISTRY METHOD 07/03/2025 1:40 PM [facility] Anion Gap 5 3 - 11 LAB CHEMISTRY METHOD 07/03/2025 1:40 PM [facility] Glucose 108(H) 70 - 100 mg/dL LAB CHEMISTRY METHOD 07/03/2025 1:40 PM [facility] BUN 11 5 - 25 mg/dL LAB CHEMISTRY METHOD 07/03/2025 1:40 PM [facility] Creatinine 0.52 0.50 - 1.10 mg/dL LAB CHEMISTRY METHOD 07/03/2025 1:40 PM [facility] eGFR 90 >=60 mL/min/1. 73m2 LAB CHEMISTRY METHOD 07/03/2025 1:40 PM [facility] Comment:Calculation based on the Chronic Kidney Disease Epidemiology Collaboration (CKD-EPI) equation refit without adjustment for race. BUN/Creatinine Ratio 21.2 LAB CHEMISTRY METHOD 07/03/2025 1:40 PM [facility] Calcium 9.1 8.5 - 10.5 mg/dL LAB CHEMISTRY METHOD 07/03/2025 1:40 PM [facility] AST (SGOT) 24 10 - 42 unit/L LAB CHEMISTRY METHOD 07/03/2025 1:40 PM [facility] ALT (SGPT) 36 10 - 60 unit/L LAB CHEMISTRY METHOD 07/03/2025 1:40 PM [facility] Alkaline Phosphatase 50 42 - 121 unit/L LAB CHEMISTRY METHOD 07/03/2025 1:40 PM [facility] Total Protein 6.4 6.0 - 8.0 g/dL LAB CHEMISTRY METHOD 07/03/2025 1:40 PM [facility] Albumin 3.5 3.2 - 5.0 g/dL LAB CHEMISTRY METHOD 07/03/2025 1:40 PM [facility] Total Bilirubin 0.6 0.0 - 1.4 mg/dL LAB CHEMISTRY METHOD 07/03/2025 1:40 PM [facility] Blood Venous blood specimen / Unknown Venipuncture / Unknown 07/03/2025 12:03 PM EST 07/03/2025 12:36 PM EST [facility] LAB BLOOD ORDERABLES Final Result [facility] [address] [place] [address], * CT Chest wo Contrast (07/03/2025 8:52 AM EST) Anatomical Region Laterality Modality Body Computed Tomogra phy 07/03/2025 9:32 AM EST Impressions 07/03/2025 9:37 AM EST No infiltrates or effusions. No pulmonary edema. Scattered 1 to 2 mm pulmonary nodules are nonspecific but likely post infectious/inflammatory. -------- FINAL REPORT -------- Dictated By: Sagar Marie Dictated Date: 07/03/2025 09:32 ET Assigned Physician: Sagar aMrie Reviewed and Electronically Signed By: Sagar Marie Signed Date: 07/03/2025 09:37 ET Workstation ID: [id number] Transcribed By: Self Edit Transcribed Date: 07/03/2025 09:32 ET Narrative 07/03/2025 9:37 AM EST INDICATION: Shortness of breath TECHNIQUE: CT scan of the chest obtained without contrast. Scanner: [employer] revolution frontier 128 slice VCT Dose reduction technique: ASIR (Adaptive statistical iterative reconstruction) and/or AEC (automated exposure control) Dose: total exam DLP 572 mGY per cm COMPARISON: None FINDINGS: Lung drummond are well aerated without infiltrates or effusions. Scattered 1 to 2 mm peripheral pulmonary nodules are nonspecific. No findings to suggest pulmonary edema. Middle lobe atelectatic changes secondary to adjacent diaphragmatic lobulation/eventration. No thoracic lymphadenopathy. Trachea and esophagus are within normal limits. Heart normal in size and shape without pericardial effusion. Unopacified mediastinal vascular structures are grossly normal in course and caliber for the patient's age. Bony structures of the thorax demonstrate degenerative changes. Visualized portion upper abdomen are unremarkable. Procedure Note Sagar Marie MD - 07/03/2025 INDICATION: Shortness of breath TECHNIQUE: CT scan of the chest obtained without contrast. Scanner: [employer] frontier 128 slice VCT Dose reduction technique: ASIR (Adaptive statistical iterativereconstruction) and/or AEC (automated exposure control) Dose: total exam DLP 572 mGY per cm COMPARISON: None FINDINGS: Lung drummond are well aerated without infiltrates or effusions. Scattered 1to 2 mm peripheral pulmonary nodules are nonspecific. No findings tosuggest pulmonary edema. Middle lobe atelectatic changes secondary toadjacent diaphragmatic lobulation/eventration. No thoracic lymphadenopathy. Trachea and esophagus are within normallimits. Heart normal in size and shape without pericardial effusion. Unopacified mediastinal vascular structures are grossly normal in courseand caliber for the patient's age. Bony structures of the thorax demonstrate degenerative changes. Visualized portion upper abdomen are unremarkable. IMPRESSION: No infiltrates or effusions. No pulmonary edema. Scattered 1 to 2 mm pulmonary nodules are nonspecific but likely postinfectious/inflammatory. -------- FINAL REPORT -------- Dictated By: Sagar Marie Dictated Date: 07/03/2025 09:32 ET Assigned Physician: Sagar Marie Reviewed and Electronically Signed By: Sagar Marie Signed Date: 07/03/2025 09:37 ET Workstation ID: [id number] Transcribed By: Self Edit Transcribed Date: 07/03/2025 09:32 ET us [facility] IMG CT PROCEDURES Final Res ult * Vascular US Duplex Lower Extremity Venous Left (07/03/2025 8:30 AM EST) Anatomical Region Laterality Modality Vascular, Abdomen Ultrasound 07/03/2025 8:38 AM EST Narrative 07/03/2025 8:38 AM EST INDICATION: leg pain and swelling. FINDINGS: A duplex venous ultrasound was performed of the left lower extremity. The common femoral, superficial femoral and popliteal veins demonstrate color-flow with augmentation and compressibility. The visualized calf veins also demonstrate color-flow. CONCLUSION: No evidence of deep vein thrombosis in [left lower extremity. [id number] -------- FINAL REPORT -------- Dictated By: Sagar Marie Dictated Date: 07/03/2025 08:38 ET Assigned Physician: Sagar Marie Reviewed and Electronically Signed By: Sagar Marie Signed Date: 07/03/2025 08:38 ET Workstation ID: [id number] Transcribed By: Self Edit Transcribed Date: 07/03/2025 08:38 ET Procedure Note Sagar Marie MD - 07/03/2025 INDICATION: leg pain and swelling. FINDINGS: A duplex venous ultrasound was performed of the left lowerextremity. The common femoral, superficial femoral and popliteal veinsdemonstrate color-flow with augmentation and compressibility. Thevisualized calf veins also demonstrate color-flow. CONCLUSION: No evidence of deep vein thrombosis in [left lower extremity. [id number] -------- FINAL REPORT -------- Dictated By: Sagar Marie Dictated Date: 07/03/2025 08:38 ET Assigned Physician: Sagar Marie Reviewed and Electronically Signed By: Sagar Marie Signed Date: 07/03/2025 08:38 ET Workstation ID: [id number] Transcribed By: Self Edit Transcribed Date: 07/03/2025 08:38 ET [facility] CV VASCULAR PROCEDURES Jackie l Result * ECG 12 lead (07/03/2025 6:28 AM EST) Ventricular Rate ECG 71 BPM GEMUSE Atrial Rate 71 BPM GEMUSE P-R Interval 144 ms GEMUSE QRS Duration 100 ms GEMUSE Q-T Interval 482 ms GEMUSE QTc 523 ms GEMUSE R [place] -59 degrees GEMUSE T [place] 10 degrees GEMUSE ECG Interpretation Critical Test Result: Long QTc Sinus rhythm with Fusion complexes and Premature atrial complexes with Aberrant conduction with ventricular escape complexes Left anterior fascicular block Prolonged QT Abnormal ECG When compared with ECG of 10-JUL-2014 01:14, Premature atrial contraction now seen Confirmed by Liset CALVERT JOHN ([id number]) on 07/03/2025 3:52:08 PM GEMUSE 07/03/2025 6:28 AM EST 07/03/2025 3:52 PM EST Mango Monk MD ECG ORDERABLES Final Result [facility] * CT Cervical Spine wo Contrast (07/03/2025 6:23 AM EST) Anatomical Region Laterality Modality Spine, C-spine Computed Tomogra phy 07/03/2025 6:47 AM EST Impressions 07/03/2025 6:47 AM EST No acute cervical spine findings. This document has been electronically signed by: Rickey Mccollum MD on 07/03/2025 06:47:24 Narrative 07/03/2025 6:47 AM EST INDICATION: pain CT cervical spine without contrast Comparison: CT - CT HEAD WO CONTRAST - 07/03/25 06:12 EST Findings: There is mild straightening of the normal lordotic curvature. Degenerative changes are demonstrated throughout the cervical spine with intervertebral disc height and vertebral body height loss, osteophyte formation, and uncovertebral hypertrophy. No acute fractures or dislocations. No acute findings on limited view of the intracranial contents. Soft tissues of the neck are normal. No consolidation or effusion at the lung apices. Procedure Note Rickey Mccollum MD - 07/03/2025 INDICATION: pain CT cervical spine without contrast Comparison: CT - CT HEAD WO CONTRAST - 07/03/25 06:12 EST Findings: There is mild straightening of the normal lordotic curvature. Degenerative changes are demonstrated throughout the cervical spine with intervertebral disc height and vertebral body height loss, osteophyte formation, and uncovertebral hypertrophy. No acute fractures or dislocations. No acute findings on limited view of the intracranial contents. Soft tissues of the neck are normal. No consolidation or effusion at the lung apices. IMPRESSION: No acute cervical spine findings. This document has been electronically signed by: Rickey Mccollum MD on 07/03/2025 06:47:24 Mango Monk MD IMG CT PROCEDURES Final Resul t * CT Head wo Contrast (07/03/2025 6:23 AM EST) Anatomical Region Laterality Modality Head and Neck Computed Tomogra phy 07/03/2025 6:43 AM EST Impressions 07/03/2025 6:43 AM EST No acute intracranial findings. This document has been electronically signed by: Rickey Mccollum MD on 07/03/2025 06:43:48 Narrative 07/03/2025 6:43 AM EST INDICATION: pain CT head without contrast Comparison: None provided Findings: No intra-axial mass, midline shift, hydrocephalus, or acute hemorrhage. Prominence of the sulci and ventricles are consistent with age-related atrophy. Periventricular white matter hypodensities are nonspecific but likely reflect chronic sequelae of microangiopathic etiology. There is no sinus or mastoid fluid. The orbits are within normal limits. There is no acute fracture. Procedure Note Rickey Mccollum MD - 07/03/2025 INDICATION: pain CT head without contrast Comparison: None provided Findings: No intra-axial mass, midline shift, hydrocephalus, or acute hemorrhage. Prominence of the sulci and ventricles are consistent with age-related atrophy. Periventricular white matter hypodensities are nonspecific but likely reflect chronic sequelae of microangiopathic etiology. There is no sinus or mastoid fluid. The orbits are within normal limits. There is no acute fracture. IMPRESSION: No acute intracranial findings. This document has been electronically signed by: Rickey Mccollum MD on 07/03/2025 06:43:48 Mango Monk MD IMG CT PROCEDURES Final Resul t from Last 3 Months Insurance MEDICARE [facility] Advance Directives * Full Code - Default (Latest Code Status on File) Date Activated Date Inactivated Comments 07/03/2025 3:38 PM 07/04/2025 5:10 PM This is orde r is used when code status has not been discussed with the patient, or code status is otherwise unknown/unconfirmed To update the patient's code status, place a code status order. Do not modify or discontinue any currently active code status orders. Care Teams Grades 1 Thru 6 Home Teacher Relationship Specialty Start Date End Date Mer Arevalo NP [address] [facility] [place] [address] PCP - General Nurse Practitioner 05/05/18
--- OUTSIDE RECORDS SUMMARY | 2025-07-17 18:30 | XMS_ITS | Clinical Summary ---
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 Care Teams Tin Whiz Machine Operator Relationship Specialty Start Date End Date Mer Arevalo NP [address] [place] [address] PCP - General Nurse Practitioner 05/05/18
[2025-07-18 13:15] VITALS: BP 155/71; PULSE 67; RESP 20; O2SAT 95; BMI 31.6
--- NOTE | 2025-07-18 13:29 | HO.ANESPROP2 ---
Documented by User: Geovanna Martins NP 07/31/25 10:04 HPI - Anesthesia Eval Consult details Narrative: 85yo F for L4-5 Lumbar Decompression, 08/01/25 Cardiac optimized. Follows HF Cardiology for atypical CP, HFpEF, LIRA, htn No recent illness. Seasonal allergies takes claritin. Some post nasal drip. No CP/SOB with minimal activity r/t pain. Limited mobility - uses wheelchair, walker Trip and fall 07/03/25 with headstrike, No LOC. Barbara admit, all imaging negative. Electrolyte imbalances corrected COPD: O2 @ [facility]HS, denies dyspnea PMR: prednisone 5mg daily GERD: ppi LLE swelling tx with lasix, hctz Retinal detachment Left eye years ago, diminished vision on Left PMFSH Active Problems Active Problems: All Active Problems Lumbar stenosis with neurogenic claudication (Acute) Hypnic headache (Acute) Past Medical History Medical History (HFpEF) heart failure with preserved ejection fraction COPD (chronic obstructive pulmonary disease) Skin cancer Hypnic headache Amputation of toe of left foot Secondary adrenal insufficiency Sleep apnea Right bundle branch block Prediabetes Polymyalgia rheumatica Persistent insomnia Obesity 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, estrogen receptor positive Lumbar spinal stenosis IBS (irritable bowel syndrome) Hypothyroidism Hyperlipidemia HTN (hypertension) Hiatal hernia Retinal detachment GERD (gastroesophageal reflux disease) Esophagitis Diverticulitis Carcinoma of central 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 Atrophic vaginitis Arthritis Anxiety Allergic rhinitis Family History Family History Father CAD (coronary artery disease) Brother Prostate CA Brother CAD (coronary artery disease) Sister Cancer, colon Family history of problems with anesthesia: No Surgical History Surgical History Hx of eye surgery Hx of amputation Hx of cataract extraction H/O colonoscopy Hx of excision of mass Hx of foot operation H/O: hysterectomy H/O section H/O mastectomy History of Problems with Anesthesia: No Social History Social History Are you a primary adult day care worker to a significant other at home: No Do you presently have visiting nurse or other home services: Yes (physical therapy) Alcohol intake: never Comment: uses w/c when going long distances Patient Tobacco Use Status: Former Tobacco user Tobacco use type: Cigarette Years Smoked: 34 Use of substances other than those prescribed or required for medical reasons: No Have you been hit, kicked, punched, or otherwise hurt by someone within the past year? If so, by whom?: No Spiritual Healthcare Practices: no Hoahaoism Healthcare Practices: no Cultural Healthcare Practices: no Are you DNR?: No Meds Allergies Allergy/AdvReac Type Severity Reaction Status Date / Time clindamycin Allergy Severe stomach Verified 06/05/25 13:01 pain codeine (CODEINE) Allergy Severe ANYTHING Verified 07/17/25 09:39 WITH 'ANY' MAKES ME GO INTO SHOCK amoxicillin (AMOXICILLIN) Allergy Intermediate WITH Verified 07/17/25 09:39 COLVLANHIC ACID - CAN TAKE PLAIN AMOXICILLIN azithromycin (From ZITHROMAX) Allergy Intermediate SAME Verified 07/17/25 09:39 LEVAQUIN dexamethasone (DEXAMETHASONE) Allergy Intermediate burning Verified 07/18/25 13:01 throughout body Iodinated Contrast Media (IV Allergy Intermediate I GO OUT Verified 07/17/25 09:39 CONTRAST) OF IT levofloxacin (From LEVAQUIN) Allergy Intermediate TACHYCARDIA/HTN/BURNING Verified 07/17/25 09:39 ALL OVER paroxetine (From PAXIL) Allergy Intermediate BURNING UP Verified 07/17/25 09:39 THROUGH HEAD sertraline (From ZOLOFT) Allergy Intermediate STOMACH Verified 07/17/25 09:39 PROBLEMS Sulfa (Sulfonamide Allergy Intermediate SICK TO Verified 07/17/25 09:39 Antibiotics) (SULFA STOMACH (SULFONAMIDE ANTIBIOTICS)) cephelexin Allergy Mild gi issues Uncoded 04/03/25 13:30 Home Medications ?Medication ?Instructions ?Recorded ?Confirmed ?Last Taken ?Type alprazolam 0.5 mg tablet 0.5 mg PO TID PRN Anxiety 04/03/25 07/18/25 08/01/25 History atenolol 25 mg tablet 25 mg PO BID 04/03/25 07/17/25 08/01/25 History lansoprazole 15 mg capsule,delayed 15 mg PO DAILY 04/03/25 07/17/25 08/01/25 History release levothyroxine 25 mcg capsule 25 mcg PO DAILY 04/03/25 07/17/25 08/01/25 History loratadine 10 mg tablet (Claritin) 10 mg PO DAILY 04/03/25 07/17/25 08/01/25 History magnesium oxide 400 mg PO DAILY 04/03/25 07/17/25 Unknown History nystatin 100,000 unit/gram topical 1 appl topical DAILY 04/03/25 07/17/25 Unknown History cream potassium gluconate 595 mg (99 mg) 595 mg PO DAILY 04/03/25 07/17/25 Unknown History tablet prednisone 5 mg tablet 5 mg PO DAILY 04/03/25 07/17/25 08/01/25 History triamcinolone acetonide 0.1 % 1 appl dental BID 04/03/25 07/17/25 Unknown History dental paste triazolam 0.25 mg tablet 0.25 mg PO BEDTIME 04/03/25 07/17/25 Unknown History albuterol sulfate 2.5 mg/3 mL 2.5 mg inhalation QID PRN 07/18/25 07/18/25 Unknown History (0.083 %) solution for nebulization Shortness Of Breath Or Wheezing furosemide 40 mg tablet 40 mg PO DAILY 07/18/25 07/18/25 Unknown History hydrochlorothiazide 25 mg tablet 25 mg PO QAM 07/18/25 07/18/25 Unknown History Exam Height,Weight and Vital Signs: Height 5 ft Weight 73.482 kg Last Vital Signs Pulse 67 07/18/25 13:15 Resp 20 07/18/25 13:15 BP 155/71 H 07/18/25 13:15 Pulse Ox 95 07/18/25 13:15 O2 Del Method Room Air 07/18/25 13:15 Pertinent Lab Results Pertinent Lab Results: Narrative Narrative: EKG 06/2025 SR RBBB LAFB No acture ST/T wave abn ECHO 07/29/25 1. LV cavity size is decreased 2. Moderate concentric LV hypertrophy 3. Overall LV sys function is nml with an EF 65-70% 4. Indeterminate diastolic function 5. There is an intracavitory gradient present with a resting gradient of 18mmHg which peak at 45 mmHg with Valsalva maneuver 6. LA size is nml 7. RV sys function is nml 8. Aortic sclerosis without evidence of stenosis 9. Moderate mitral annular calc present 10. No evidence of pulmonary htn 11. Ascending aorta dilated, measuring 3.7cm 12. C/w finding of the prior report 2020, no real change Chest CT 06/2025 IMPRESSION: No infiltrates or effusions. No pulmonary edema. Scattered 1 to 2 mm pulmonary nodules are nonspecific but likely post infectious/inflammatory. Head CT 06/2025 IMPRESSION: No acute intracranial findings. Nuc Stress 2022 nml per Cardiac clear note Airway Mallampati Class: I TM Dist: >3cm Neck ROM: Full Denture: Upper Loose/Missing/Broken Teeth: Yes (no lower teeth) Heart: RRR Lungs: CTAB Assessment and Plan Assessment Anesthesia Assessment: Anesthesia Plan Discussed and PAT Visit Final Anesthetic Review Family History of Problems with Anesthesia: No History of Problems with Anesthesia: No Documented by User: Elgin Quesada MD 08/01/25 09:30 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, estrogen receptor positive Lumbar spinal stenosis IBS (irritable bowel syndrome) Hypothyroidism Hyperlipidemia HTN (hypertension) Hiatal hernia Retinal detachment GERD (gastroesophageal reflux disease) Esophagitis Diverticulitis Carcinoma of central 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 Atrophic vaginitis Arthritis Anxiety Allergic rhinitis Family History Family History Father CAD (coronary artery disease) Brother Prostate CA Brother CAD (coronary artery disease) Sister Cancer, colon Surgical History Surgical History Hx of eye surgery Hx of amputation Hx of cataract extraction H/O colonoscopy Hx of excision of mass Hx of foot operation H/O: hysterectomy H/O section H/O mastectomy Social History Social History Are you a primary adult day care worker to a significant other at home: No Do you presently have visiting nurse or other home services: Yes (physical therapy) Alcohol intake: never Comment: uses w/c when going long distances Patient Tobacco Use Status: Former Tobacco user Tobacco use type: Cigarette Years Smoked: 34 Use of substances other than those prescribed or required for medical reasons: No Have you been hit, kicked, punched, or otherwise hurt by someone within the past year? If so, by whom?: No Spiritual Healthcare Practices: no Hoahaoism Healthcare Practices: no Cultural Healthcare Practices: no Are you DNR?: No Meds Allergies Allergy/AdvReac Type Severity Reaction Status Date / Time clindamycin Allergy Severe stomach Verified 06/05/25 13:01 pain codeine (CODEINE) Allergy Severe ANYTHING Verified 07/17/25 09:39 WITH 'ANY' MAKES ME GO INTO SHOCK amoxicillin (AMOXICILLIN) Allergy Intermediate WITH Verified 07/17/25 09:39 COLVLANHIC ACID - CAN TAKE PLAIN AMOXICILLIN azithromycin (From ZITHROMAX) Allergy Intermediate SAME Verified 07/17/25 09:39 LEVAQUIN dexamethasone (DEXAMETHASONE) Allergy Intermediate burning Verified 07/18/25 13:01 throughout body Iodinated Contrast Media (IV Allergy Intermediate I GO OUT Verified 07/17/25 09:39 CONTRAST) OF IT levofloxacin (From LEVAQUIN) Allergy Intermediate TACHYCARDIA/HTN/BURNING Verified 07/17/25 09:39 ALL OVER paroxetine (From PAXIL) Allergy Intermediate BURNING UP Verified 07/17/25 09:39 THROUGH HEAD sertraline (From ZOLOFT) Allergy Intermediate STOMACH Verified 07/17/25 09:39 PROBLEMS Sulfa (Sulfonamide Allergy Intermediate SICK TO Verified 07/17/25 09:39 Antibiotics) (SULFA STOMACH (SULFONAMIDE ANTIBIOTICS)) cephelexin Allergy Mild gi issues Uncoded 04/03/25 13:30 Home Medications ?Medication ?Instructions ?Recorded ?Confirmed ?Last Taken ?Type alprazolam 0.5 mg tablet 0.5 mg PO TID PRN Anxiety 04/03/25 07/18/25 08/01/25 History atenolol 25 mg tablet 25 mg PO BID 04/03/25 07/17/25 08/01/25 History lansoprazole 15 mg capsule,delayed 15 mg PO DAILY 04/03/25 07/17/25 08/01/25 History release levothyroxine 25 mcg capsule 25 mcg PO DAILY 04/03/25 07/17/25 08/01/25 History loratadine 10 mg tablet (Claritin) 10 mg PO DAILY 04/03/25 07/17/25 08/01/25 History magnesium oxide 400 mg PO DAILY 04/03/25 07/17/25 Unknown History nystatin 100,000 unit/gram topical 1 appl topical DAILY 04/03/25 07/17/25 Unknown History cream potassium gluconate 595 mg (99 mg) 595 mg PO DAILY 04/03/25 07/17/25 Unknown History tablet prednisone 5 mg tablet 5 mg PO DAILY 04/03/25 07/17/25 08/01/25 History triamcinolone acetonide 0.1 % 1 appl dental BID 04/03/25 07/17/25 Unknown History dental paste triazolam 0.25 mg tablet 0.25 mg PO BEDTIME 04/03/25 07/17/25 Unknown History albuterol sulfate 2.5 mg/3 mL 2.5 mg inhalation QID PRN 07/18/25 07/18/25 Unknown History (0.083 %) solution for nebulization Shortness Of Breath Or Wheezing furosemide 40 mg tablet 40 mg PO DAILY 07/18/25 07/18/25 Unknown History hydrochlorothiazide 25 mg tablet 25 mg PO QAM 07/18/25 07/18/25 Unknown History Exam Exam Date and Time: 08/01/25 Airway Lungs: right ex wheezes CTAB Assessment and Plan Final Anesthetic Review ASA Class: III Final Preanesthetic Review: No Changes in Pt Med Stat, Meds/Allgs Chart Reviewed, Consent Obtained/Reviewed and Anes Risks/Benef Reviewed Patient Risk: Intermediate Procedure Risk: Low Anesthetic Plan Anesthetic Plan: GA Disposition: Standard PACU
[2025-08-01] VITALS (11 sets, daily range): BP systolic 121–160; BP diastolic 55–76; PULSE 61–77; RESP 10–20; TEMP 36.1–36.9; O2SAT 93–98; BMI 30.8
--- NOTE | ~2025-08-01 | FL_ITS ---
EXAMINATION: FL GUIDANCE ONLY HISTORY: l4-5 [id number] COMPARISON: Correlation is made with plain films of the lumbar spine dated 06/05/2025. TECHNIQUE: Fluoroscopy time: 2.9 seconds. Cumulative Dose: 3.4036 mGy. DAP: 1.2910 Gycm2 Images: 2. FINDINGS: Fluoroscopic spot films of the lumbar spine in the lateral projection demonstrate a probe directed to the L4-5 intervertebral disc space. FL/FL guidance in OR IMPRESSION: Fluoroscopy during procedure. Please see procedure report for additional information. Electronically signed by: Raji Dior MD 08/01/2025 10:58 AM [facility]
--- NOTE | 2025-08-01 07:34 | PM.DS ---
DS: Providers Provider Date of Service: 08/01/25 Date of discharge: 08/01/25 Primary care physician: LIONEL Chang Admitting clinician: Sourav Arboleda DS: Diagnosis Discharge Diagnosis (1) Lumbar stenosis with neurogenic claudication: Status: Acute DS: Summary Time Attestation Discharge Coordination Time (in mins): 4 Quality: Safe Use of Opioids Does Pt have an Active Cancer Diagnosis on the Problem List?: No Quality: Stroke Does the patient have a stroke diagnosis?: No Physical Exam Vital Signs: Vital Signs: Last Vital Signs Pulse 67 07/18/25 13:15 Resp 20 07/18/25 13:15 BP 155/71 H 07/18/25 13:15 Pulse Ox 95 07/18/25 13:15 O2 Del Method Room Air 07/18/25 13:15 BMI result Body Mass Index 31.6 Discharge Plan Discharge Patient Disposition: Home, Self-Care Referrals: Linsey Vasques PA [Primary Care Provider, Medical] - 1 Week Discharge Medications: New tramadol 50 mg tablet 50 mg PO Q6H PRN (Reason: pain) Qty: 20 0RF Continued hydrochlorothiazide 25 mg tablet 25 mg PO QAM albuterol sulfate 2.5 mg /3 mL (0.083 %) Solution For Nebulization 2.5 mg INHALATION QID PRN (Reason: Shortness Of Breath Or Wheezing) furosemide 40 mg tablet 40 mg PO DAILY prednisone 5 mg tablet 5 mg PO DAILY atenolol 25 mg tablet 25 mg PO BID alprazolam 0.5 mg tablet 0.5 mg PO TID PRN (Reason: Anxiety) lansoprazole 15 mg capsule,delayed release(DR/EC) 15 mg PO DAILY loratadine [Claritin] 10 mg tablet 10 mg PO DAILY triazolam 0.25 mg tablet 0.25 mg PO BEDTIME triamcinolone acetonide 0.1 % paste 1 appl dental BID Rx Instructions: use after food and/or drink and/or oral hygiene nystatin 100,000 unit/gram cream 1 appl topical DAILY potassium gluconate 595 mg (99 mg) tablet 595 mg PO DAILY levothyroxine 25 mcg capsule 25 mcg PO DAILY magnesium oxide 400 mg magnesium tablet 400 mg PO DAILY Discharge Orders: Discharge Order (Routine); Ordered 08/01/25 Ordered By: Kamron Kaminski Diet: Advance to usual diet Activity on Discharge: As tolerated Activity Restrictions/Additional Instructions: After your spinal surgery we ask you to observe the following restrictions/guidelines: Activity: It is normal to feel some discomfort as you increase your activity, but that will improve with time. We ask you avoid heavy lifting or acitivities that cause pain. As a general rule, 8lbs is a safe limit for lifting right after surgery. Walk as much as you feel comfortable but not to exhaustion. You will feel extra tired the first few days after surgery. Stay well hydrated. It is OK to walk up and down stairs You may return to driving when you are off narcotics (such as vicodin, oxycodone, dilaudid, etc), and you are back to normal functional capacity. If you have any concerns please check with office before driving. Return to work is specific to each patient and each surgery, so please speak with your doctor/PA at first follow up. Please bring paperwork such as FMLA at that time if you need it filled out. Medications: For optimum pain control, it is best to start with a combination of 500 mg of Tylenol every 4 hours with 600 mg of Motrin every 8 hours, and use narcotics as needed in between for breakthrough pain. We will give you a short supply of narcotics after surgery (usually one weeks worth). If you need more please call the office but do not use more than prescribed. You will need to give our office 48 hours notice if you need narcotics refilled and we do not fill narcotics on weekends or evenings. If you are on a narcotic, it is a good idea to take a stool softener such as colace or senna to avoid constipation If you take blood thinner such as aspirin, Plavix, Coumadin, Effient, Eliquis etc for conditions such as Afib, DVT, Pulmonary embolus, coronary disease, stents etc please speak with your surgeon about specific details as to when you can resume these medications. Follow up: Please call the office, , after surgery to arrange a 3 week follow up for wound check. Wound Care: You may remove your dressing on the first day after surgery. ?You may ?leave open to air. Please do not remove the steri strips underneath. they will fall off on their own in one week. IT IS NORMAL FOR THE WOUND TO OOZE OR BE BLOODY FOR A FEW DAYS AFTER SURGERY. ?IF THIS HAPPENS JUST PLACE NEW DRESSING OVER IT TO AVOID STAINING CLOTHES. You may shower on post op day # 1 We ask that you do not let the water soak the wound. If it does get wet, just towel dry lightly. Please do not scrub your incision or place any type of chemical/ointment on the wound. No tub baths, pools or jacuzzis for one month. If you have any leaking or redness from your wound, or fevers, please call office Print Language: [place]
[2025-08-01] MEDS: Lactated Ringers 1,000 ML 50 ML IVCONT (08:11)
--- NOTE | 2025-08-01 08:45 | MHC.SHP ---
Pre-Procedural Eval Section A - 24 Hr Update-Section A only Date of Service: 08/01/25 The patient is an INPATIENT: No Section B - Complete if H&P > 30 days Chief Complaint: Spinal stenosis, lumbar region with neurogenic Details of Present Illness: bilateral leg pain Allergies: Allergies Allergy/AdvReac Type Severity Reaction Status Date / Time clindamycin Allergy Severe stomach Verified 06/05/25 13:01 pain codeine (CODEINE) Allergy Severe ANYTHING Verified 07/17/25 09:39 WITH 'ANY' MAKES ME GO INTO SHOCK amoxicillin (AMOXICILLIN) Allergy Intermediate WITH Verified 07/17/25 09:39 COLVLANHIC ACID - CAN TAKE PLAIN AMOXICILLIN azithromycin (From ZITHROMAX) Allergy Intermediate SAME Verified 07/17/25 09:39 LEVAQUIN dexamethasone (DEXAMETHASONE) Allergy Intermediate burning Verified 07/18/25 13:01 throughout body Iodinated Contrast Media (IV Allergy Intermediate I GO OUT Verified 07/17/25 09:39 CONTRAST) OF IT levofloxacin (From LEVAQUIN) Allergy Intermediate TACHYCARDIA/HTN/BURNING Verified 07/17/25 09:39 ALL OVER paroxetine (From PAXIL) Allergy Intermediate BURNING UP Verified 07/17/25 09:39 THROUGH HEAD sertraline (From ZOLOFT) Allergy Intermediate STOMACH Verified 07/17/25 09:39 PROBLEMS Sulfa (Sulfonamide Allergy Intermediate SICK TO Verified 07/17/25 09:39 Antibiotics) (SULFA STOMACH (SULFONAMIDE ANTIBIOTICS)) cephelexin Allergy Mild gi issues Uncoded 04/03/25 13:30 Review of Systems Sugical H&P ROS: Negative: Constitution, Cardiovascular, Respiratory, Neurological, Psychiatric, Hem-Onc, Allergic/Immunologic, Gastrointestinal, Genitourinary, Musculoskeletal, Integumentary, Endocrine and Eyes/Ears/Nose/Throat Exam Surgical H&P Exam: Normal: HEENT, Normal: Heart, Normal: Lungs, Normal: Extremities, Normal: Abdomen, Normal: Skin and Normal: Neurological ( awake, alert) Plan Diagnosis/Plan: Unchanged L4-5 lumbar decompression Time Spent With Patient Time: Total time managing care of this patient today __5__ minutes.
[2025-08-01] MEDS: Albuterol/Iprat 2.5/0.5MG 3 ML AMPUL.NEB INHALE (09:22)
--- NOTE | 2025-08-01 09:25 | PC.NURSE ---
pt receiving resp tx
--- NOTE | 2025-08-01 09:37 | PC.NURSE ---
pt sts she revoking her DNR [facility] TO BE A FULL CODE EVERYONE AWARE
--- NOTE | 2025-08-01 10:48 | P.OP_ITS ---
Operative Note Operative Note Date of Service: 08/01/25 Narrative: Preoperative Diagnosis: L4-5 spinal stenosis/lateral recess stenosis/neural foraminal stenosis Operation: L4-5 Laminotomy, Partial facetectomy and foraminotomy with use of microscope Consent Informed Consent was obtained for this operation. I have explained the nature, purpose and benefits of the operation. I have discussed the risks and benefit of the operation including possible complications or adverse events with patient/family. Alternative(s) were discussed with the patient with their relative benefits and risks as well as the consequences of not accepting the operation were included in obtaining consent. Surgeon: INESSA BISHOP MD, PHD Procedure Assisted By: Kamron Cortes Description of Procedure This patient is suffering from predominantly left-sided neurogenic claudication symptoms. MRI shows L4-5 spinal stenosis.. The patient was offered a decompression of this level. The procedure complications were explained. The patient was consented. The patient was brought to the operating room and endotracheally intubated. The patient was turned in prone position on the Matthew frame. Prep and drape was done followed by timeout. The Physician commercial escrow assistant provided access. A mid lumbar incision was made followed by release of the paravertebral muscle on the left side to expose the L4-5 lamina and facet joints. An intraoperative x-ray was obtained to confirm the correct level. The microscope was brought in. I took over the procedure. The high-speed drill was used to do a L4-5 laminotomy until flavum ligament was reached. A #2 Kerrison was used to expand the laminotomy near flush to the pedicles and to include a partial facetectomy. The flavum ligament was opened and resected with a #3 Kerrison to decompress the underlying thecal sac. The flavum ligament was removed to decompress the lateral recess and the exiting L5 nerve root. The patient was turned contralaterally. The spinous process was undercut and this way I was able to extend the laminotomy contralaterally. Significant oozing was present the whole procedure, she was treated with bipolar and Surgiflo. A long nerve hook could be easily passed along the medial side of the pedicles as a sign of adequate decompression. The microscope was removed. Hemostasis was done. The physician commercial escrow assistant close the Incision in 2 layers. Steri-Strips were used to approximate incision. An OpSite with Tegaderm was used to cover the incision. All sponge needle counts were correct. Patient was extubated and transported in stable is to recovery room. Anesthesia: General Estimated Blood Loss (ml): 60 mL Complications: None Duration of Surgery: Under 60 Minutes Postoperative Plan: Discharge to home
== END 2025-08-01 12:59 | disposition home or self-care (01) ==
LOC: HO.SSS 07:37
PROVIDERS: PCP Student in an Organized Health Care Education/Training Program; Visit Provider Neurological Surgery
PROC: (CPT 63047; principal; 2025-08-01 10:30)
DX: M48.062 Spinal stenosis, lumbar region with neurogenic claudication (principal); M54.50 Low back pain, unspecified; M79.606 Pain in leg, unspecified; M79.7 Fibromyalgia; M35.3 Polymyalgia rheumatica; R26.2 Difficulty in walking, not elsewhere classified; R60.0 Localized edema; I45.10 Unspecified right bundle-branch block; I10 Essential (primary) hypertension; E78.2 Mixed hyperlipidemia; J44.9 Chronic obstructive pulmonary disease, unspecified; R06.00 Dyspnea, unspecified; Z99.81 Dependence on supplemental oxygen; G47.33 Obstructive sleep apnea (adult) (pediatric); E03.9 Hypothyroidism, unspecified; Z85.828 Personal history of other malignant neoplasm of skin; Z85.3 Personal history of malignant neoplasm of breast; Z90.13 Acquired absence of bilateral breasts and nipples; Z79.52 Long term (current) use of systemic steroids; Z79.899 Other long term (current) drug therapy; Z99.89 Dependence on other enabling machines and devices; Z88.1 Allergy status to other antibiotic agents; Z88.2 Allergy status to sulfonamides; Z88.5 Allergy status to narcotic agent; Z88.8 Allergy status to other drugs, medicaments and biological substances; Z91.041 Radiographic dye allergy status; Z87.891 Personal history of nicotine dependence
CPT/HCPCS: 63047; 94640; J0131; J1200; J2003; J2371; J2405; J2704; J3010; J3374

== ENCOUNTER → 2025-08-01 07:36 | Outpatient (BNV) | payer MEDICARE, SELFPAY | PROVIDERS: PCP Student in an Organized Health Care Education/Training Program; Visit Provider Neurological Surgery | DX: M48.062 Spinal stenosis, lumbar region with neurogenic claudication (principal) | CPT/HCPCS: 63047; 99499 ==

== ENCOUNTER 2025-08-05 11:30 | Emergency (ER) | payer MEDICARE, SELFPAY ==
--- NOTE | ~2025-08-05 | XR_ITS ---
EXAMINATION: XR LUMBAR SPINE 2-3 VIEWS HISTORY: evaluate s/p surgical pain COMPARISON: Comparison is made with the prior examination dated 06/05/2025. FINDINGS: AP and lateral views of the lumbar spine are submitted. The bones are osteopenic. There is mild leftward curvature. The vertebral bodies maintain normal height without evidence of fracture or spondylolisthesis. There is diffuse moderate to severe degenerative disc disease with disc space narrowing, osteophyte formation, and vacuum phenomenon. There is osteoarthritis of the facet joints. There is calcification of the abdominal aorta. XR/XR lumbar spine 2-3V IMPRESSION: Mild leftward curvature. Diffuse moderate to severe degenerative disc disease as described. Electronically signed by: Raji Dior MD 08/05/2025 01:14 PM JOSE R
[2025-08-05 11:39] VITALS: BP 160/80; PULSE 88; O2SAT 95
[2025-08-05 11:41] VITALS: PULSE 76; RESP 20; TEMP 36.4; O2SAT 93; BMI 29.8
--- NOTE | 2025-08-05 11:41 | ED_ITS ---
HPI - Extremity Injury (Lower) General Chief Complaint: Extremity Problem Stated Complaint: L LEG PAIN Time Seen by Provider: 08/05/25 11:39 Source: patient, RN notes reviewed and old records reviewed Mode of arrival: ambulatory Limitations: physical limitation History of Present Illness ED Provider: Arlet Palacio PA-C HPI Narrative: ? Patient is postoperative from a decompressive spine surgery performed last (same-day discharge). ? On post-operative day 2 she developed sudden, severe pain involving the entire left leg, worse with any attempt to bear weight. ? Pain is constant, throbbing, and severe enough that she is unable to stand or ambulate without a walker; she reports she cannot move her left leg when standing, which is a new symptom since surgery. At home she uses a bedside portable commode because she cannot reach the bathroom due to leg pain. ? Reports the surgical incision on her back is ?black and blue? and painful. ? Currently taking oxycodone; notes an allergy to codeine but is unsure if that is contributing to her symptoms. ? Bladder: feels the urge to void; last urinated just before leaving home. First postoperative day she noted bloody urine (no current hematuria reported). ? GI: new nausea (?sick to my stomach?) today; minimal oral intake (tea for breakfast). ? Allergies: long-standing seasonal allergies; usually takes Claritin but did not take it today. ? Home PT has been arranged but first appointment is not yet scheduled. ? Was referred to the ED today per her spine surgeon, Dr. Mendez, for evaluation of the severe leg pain. Review of Systems: ? Musculoskeletal: severe left leg pain, unable to bear weight. ? Neurological: able to move left leg with significant pain. ? Genitourinary: sensation of bladder fullness; hematuria on postoperative day 1, none today. ? Gastrointestinal: nausea, poor appetite. ? Allergic/Immunologic: seasonal allergies; no Claritin taken today. Related Data Home Medications ?Medication ?Instructions ?Recorded ?Confirmed alprazolam 0.5 mg tablet 0.5 mg PO TID PRN Anxiety 07/18/25 atenolol 25 mg tablet 25 mg PO BID 04/03/25 lansoprazole 15 mg capsule,delayed 15 mg PO DAILY 02/2007/17/25 release levothyroxine 25 mcg capsule 25 mcg PO DAILY 04/03/25 07/17/25 loratadine 10 mg tablet (Claritin) 10 mg PO DAILY 02/2007/17/25 magnesium oxide 400 mg PO DAILY 04/03/25 nystatin 100,000 unit/gram topical 1 appl topical MAGNOLIA Y 04/03/25 07/17/25 cream potassium gluconate 595 mg (99 mg) 595 mg PO DAILY 02/2007/17/25 tablet prednisone 5 mg tablet 5 mg PO DAILY 04/03/2507/17 triamcinolone acetonide 0.1 % 1 appl dental BID 07/17/25 dental paste triazolam 0.25 mg tablet 0.25 mg PO BEDTIME 04/03/25 07/17/25 albuterol sulfate 2.5 mg/3 mL 2.5 mg inhalation QID WA N 07/18/25 07/18/25 (0.083 %) solution for nebulization Shortness Of Breat h Or Wheezing furosemide 40 mg tablet 40 mg PO DAILY 07/18/2506/30 hydrochlorothiazide 25 mg tablet 25 mg PO QAM 07/18/25 07/18/25 Previous Rx's ?Medication ?Instructions ?Recorded tramadol 50 mg tablet 50 mg PO Q6H PRN pain #20 ta bs 08/01/25 oxycodone 5 mg tablet 5 mg PO Q6H PRN pain #14 tab s 08/03/25 Allergies Allergy/AdvReac Type Severity Reaction Status Date / Time clindamycin Allergy Severe stomach Verified 08/05/25 11:47 pain codeine (CODEINE) Allergy Severe Hives Verified 08/05/25 11:47 amoxicillin (AMOXICILLIN) Allergy Intermediate WITH Verified 08/05/25 11:47 COLVLANHIC ACID - CAN TAKE PLAIN AMOXICILLIN azithromycin (From ZITHROMAX) Allergy Intermediate SAME Verified 08/05/25 11:47 LEVAQUIN dexamethasone (DEXAMETHASONE) Allergy Intermediate burning Verified 08/05/25 11:47 throughout body Iodinated Contrast Media (IV Allergy Intermediate I GO OUT Verified 08/05/25 11:47 CONTRAST) OF IT levofloxacin (From LEVAQUIN) Allergy Intermediate TACHYCARDIA/HTN/BURNING Verified 08/05/25 11:47 ALL OVER paroxetine (From PAXIL) Allergy Intermediate BURNING UP Verified 08/05/25 11:47 THROUGH HEAD sertraline (From ZOLOFT) Allergy Intermediate STOMACH Verified 08/05/25 11:47 PROBLEMS Sulfa (Sulfonamide Allergy Intermediate SICK TO Verified 08/05/25 11:47 Antibiotics) (SULFA STOMACH (SULFONAMIDE ANTIBIOTICS)) cephelexin Allergy Mild gi issues Uncoded 04/03/25 13:30 Review of Systems 2 Review of Systems: Yes all other systems are reviewed and are negative PMFSH Past Medical History Attestation statement: The following information was validated with the patient. 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, estrogen receptor positive Lumbar spinal stenosis IBS (irritable bowel syndrome) Hypothyroidism Hyperlipidemia HTN (hypertension) Hiatal hernia Retinal detachment GERD (gastroesophageal reflux disease) Esophagitis Diverticulitis Carcinoma of central 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 Atrophic vaginitis Arthritis Anxiety Allergic rhinitis Surgical History Hx of eye surgery Hx of amputation Hx of cataract extraction H/O colonoscopy Hx of excision of mass Hx of foot operation H/O: hysterectomy H/O section H/O mastectomy Family History Family History Father CAD (coronary artery disease) Brother Prostate CA Brother CAD (coronary artery disease) Sister Cancer, colon Social History Social History Are you a primary care partner to a significant other at home: No Do you presently have visiting nurse or other home services: Yes (physical therapy) Alcohol intake: never Comment: uses w/c when going long distances Patient Tobacco Use Status: Former Tobacco user Tobacco use type: Cigarette Years Smoked: 34 Smoked in Last 30 Days: No Use of substances other than those prescribed or required for medical reasons: No Advance Directives: No Advance Directives Information Provided: Yes Do you have a plan to hurt others: No Plan Physical Exam 2 Exam: Exam: General: Patient seen lying in stretcher, in obvious discomfort. Back/Incision: Lumbar surgical incision with surrounding ecchymosis; tender to palpation. Left Lower Extremity: Diffuse tenderness throughout leg. Patient able to move leg against resistance in all directions when supine (push/pull testing ?good? per bedside exam) but movement exacerbates pain. Unable to tolerate standing. Distal sensation and motor grossly intact during limited exam. Witnessed to self pivot and shift to commode, no midline tenderness, step-offs or deformities Oral cavity: Mucosa moist; no lesions. Vital Signs: Vital Signs: Last Vital Signs Temp 97.7 F 08/05/25 15:52 Pulse 72 08/05/25 15:52 Resp 16 08/05/25 15:52 BP 161/85 H 08/05/25 15:52 Pulse Ox 92 08/05/25 15:52 O2 Del Method Room Air 08/05/25 15:52 Oxygen Flow Rate 2 08/05/25 11:41 BMI result Body Mass Index 29.8 Medications Administered Discontinued Medications Generic Name Dose Route Start Last Admin Trade Name Freq PRN Reason Stop Dose Admin Acetaminophen 975 mg 08/05/25 14:10 08/05/25 14:31 Acetaminophen 325 Mg Tablet PO 08/05/25 14:11 975 mg ONCE ONE Administration Medical Decision Making Medical Decision Making MDM Narrative: 85-year-old female presenting with severe, sudden-onset left leg pain following recent decompressive spine surgery. She is unable to bear weight, has new functional impairment, and reports associated nausea. The pain is constant, throbbing, and exacerbated by movement, with significant impact on mobility and activities of daily living. Differential Diagnosis Considered: * Epidural hematoma: Considered due to acute severe pain and functional loss postoperatively. Ruled out based on lack of acute findings on standing AP/lateral lumbar spine radiographs and absence of progressive neurological deficits on exam. * Nerve injury: Considered given new inability to move the leg when standing; however, motor and sensory function grossly intact on limited exam, and imaging did not reveal acute pathology. * Musculoskeletal pain: Diffuse tenderness and ecchymosis at the incision site suggest postoperative musculoskeletal pain as a contributing factor. * Medication side effects: Patient is allergic to codeine and reports lack of pain relief with oxycodone; no evidence of medication-induced neurological symptoms. Acute compressive pathology was ruled out based on imaging and physical exam findings. Flexion/extension films were deferred due to pain intolerance. 85-year-old female (age per conversation timeframe) with recent decompressive spine surgery presenting with severe postoperative left leg pain, functional impairment, and associated nausea. Problem #1: Severe postoperative left leg pain Assessment: Onset postoperative day 2; diffuse left leg pain limiting weight bearing. Incision site ecchymosis and tenderness. Initial AP/lateral lumbar films without acute findings. Plan: * Pain control: Patient declined NSAIDs and opioid analgesics; prefers acetaminophen (Tylenol) only. 975 mg Tylenol ordered for pain management. * Orthopedic/neurosurgical team (Dr. Mendez) aware; consulted via bedside PA (Karmon Kaminski). * Standing flexion/extension films deferred until patient can tolerate. * Physical therapy evaluation and short-term rehab/VNA with PT services discussed; patient declined further PT evaluation and prefers discharge to home. * Consults to PT and case management canceled per patient preference. * Orders for hydromorphone and ibuprofen canceled. * Shared decision-making documented: patient understands risks/benefits of inpatient rehab, VNA with PT, and home discharge, and elects to go home with home PT as previously arranged. * Discharge to home planned per patient preference. Problem #2: Postoperative nausea Assessment: New nausea with minimal PO intake. Plan: * Encourage small sips of clear fluids as tolerated. * Monitor oral intake; escalate care if unable to tolerate fluids. Problem #3: Bladder urgency / postoperative hematuria (resolved) Assessment: Sensation of bladder fullness; hematuria occurred on postoperative day 1, not present today. Plan: * Assist with toileting due to mobility limitations. Follow-Up: ? Patient to be discharged to home with instructions for pain management and mobility as tolerated. ? Follow-up with Dr. Mendez per routine postoperative schedule or sooner if symptoms worsen. 1508: Patient is now requesting labs reports that she was seen three weeks ago at [facility] and had a low electrolyte level. As Ortho sent her here and requesting imaging and no labs, this was not originally done. Will cancel dispo and check CBC, BMP, and mag 1558: CBC without leukocytosis, mild normocytic anemia noted, no electrolyte imbalance. Patient requested her home atenolol dose, ordered. She will now be discharged to home Differential Diagnosis Differential Diagnoses: The differential diagnosis associated with the presentation includes Admission/Observation Consideration of admission/observation: Escalation of care including admission/observation considered Consult Healthcare Provider Management of the patient was discussed with: Vice President Business [employer] Lab Data MDM Lab Attestation statement: I reviewed the patient's lab results. 08/05/25 15:38 08/05/25 15:38 Labs: Lab Results 08/05/25 08/05/25 Range/Units 12:35 15:38 WBC 7.3 (4.8-10.8) X10*3/uL RBC 3.68 L (4.20-5.50) X10*6/uL Hgb 11.6 L (12.0-16.0) g/dl Hct 34.9 L (37.0-47.0) % MCV 94.8 (80.0-98.0) fL MCH 31.5 (27.0-33.0) pg MCHC 33.2 (31.0-35.0) g/dl RDW 13.6 (11.0-16.0) % Plt Count 189 (160-400) X10*3/uL MPV 9.7 (9.4-12.3) fL Immature Gran % (Auto) 0.4 (0.0-0.4) % Neut % (Auto) 75.0 H (45-73) % Lymph % (Auto) 17.4 L (20-40) % Mcleod % (Auto) 6.6 (2-11) % Eos % (Auto) 0.5 (0-4) % Baso % (Auto) 0.1 (0-2) % Lymph # (Auto) 1.3 (1.2-4.9) X10*3/uL Mcleod # (Auto) 0.5 (0.1-1.2) X10*3/uL Eos # (Auto) 0.0 (0.0-0.4) X10*3/uL Baso # (Auto) 0.0 (0.0-0.2) X10*3/uL Abs Immat Gran (auto) 0.03 (0.00-0.03) X10*3/uL Absolute Neuts (auto) 5.5 (2.0-8.3) x10*3/uL Absolute Nucleated RBC 0.000 (0.0-0.012) X10*3/uL Nucleated RBC % (auto) 0.0 (0.0-0.2) /100WBC Sodium 142 (135-145) mmol/L Potassium 4.0 (3.3-5.1) mmol/L Chloride 105 (96-108) mmol/L Carbon Dioxide 29 (22-29) mmol/L Anion Gap 12 (12-20) BUN 9 (9-16) mg/dL Creatinine 0.51 (0.5-1.4) mg/dL Estim Creat Clear Calc 75.9 Estimated GFR > 60 Random Glucose 114 (60-115) mg/dL Calcium 9.6 (8.4-10.2) mg/dL Magnesium 2.0 (1.6-2.6) mg/dL Urine Color Yellow Urine Appearance Clear Urine pH 8.5 (5.0-9.0) Ur Specific [place] <= 1.005 (1.005-1.025) Urine Protein Negative (Neg-Trace) mg/dL Urine Glucose (UA) Negative (Negative) mg/dL Urine Ketones Negative (Negative) mg/dL Urine Blood Negative (Negative) Urine Nitrite Negative (Negative) Ur Leukocyte Esterase Negative (Negative) Urine Opiates Screen Not Detected (Not Detect) Ur Buprenorphine Scrn Not Detected (Not Detect) ng/mL Ur Oxycodone Screen Positive H (Not Detect) ng/mL Urine Methadone Screen Not Detected (Not Detect) ng/mL Urine Fentanyl Screen Not Detected (Not Detect) Ur Barbiturates Screen Not Detected (Not Detect) Ur Phencyclidine Scrn Not Detected (Not Detect) Ur Amphetamines Screen Not Detected (Not Detect) U Benzodiazepines Scrn POSITIVE H (Not Detect) Urine Cocaine Screen Not Detected (Not Detect) U Marijuana (THC) Screen Not Detected (Not Detect) Independent Interpretation I performed an independent interpretation of an: Plain X-Ray Interpretation: no acute findings Radiology Impression Discussion of test interpretation with radiology: I have reviewed the radiologist's reading. Radiologist Impression: COMPARISON: Comparison is made with the prior examination dated 06/05/2025. FINDINGS: AP and lateral views of the lumbar spine are submitted. The bones are osteopenic. There is mild leftward curvature. The vertebral bodies maintain normal height without evidence of fracture or spondylolisthesis. There is diffuse moderate to severe degenerative disc disease with disc space narrowing, osteophyte formation, and vacuum phenomenon. There is osteoarthritis of the facet joints. There is calcification of the abdominal aorta. XR/XR lumbar spine 2-3V IMPRESSION: Mild leftward curvature. Diffuse moderate to severe degenerative disc disease as described. External Record Review External record reviewed: Prior outpatient radiology Prescription Management I considered prescription management with: Pain Medication Chronic Conditions Patient?s care impacted by: Other Social Determinants Patient?s care significantly limited by Social Determinants of Health including: Other Social Determinant of Health Discharge Plan Discharge Clinical Impression: Left lumbar radiculopathy Patient Disposition: Home, Self-Care Additional Instructions: Discharge Summary Date of Discharge: 2025-08-05 Attending Physician: Arlet Palacio PA-C ADMISSION INFORMATION Date of Presentation: 2025-08-05 Chief Complaint: My leg is killing me - severe left leg pain following recent decompressive spine surgery HOSPITAL COURSE 85-year-old female who presented to the emergency department with severe left leg pain following decompressive lumbar spine surgery performed on 2025-08-01 (postoperative day 4 at discharge). The patient was discharged home on the day of surgery. On postoperative day 2, she developed sudden-onset, severe, constant throbbing pain involving the entire left leg that significantly worsened with weight-bearing attempts. The pain was severe enough to render her unable to ambulate without a walker and she reported inability to move her left leg when standing, which represented a new symptom since surgery. At home, she required use of a bedside commode due to inability to reach the bathroom secondary to leg pain. The patient reported the surgical incision on her back appeared black and blue with surrounding tenderness. She was taking oxycodone for pain control but reported inadequate relief. She has a documented allergy to codeine. On presentation, she also complained of new-onset nausea with minimal oral intake, reporting only tea for breakfast. She noted bloody urine on postoperative day 1, which had resolved by the time of presentation. Physical examination revealed a patient in obvious discomfort. The lumbar surgical incision showed surrounding ecchymosis with tenderness to palpation. The left lower extremity demonstrated diffuse tenderness throughout. When supine, the patient was able to move her leg against resistance in all directions (strength testing good ), though movement exacerbated pain. She was unable to tolerate standing for examination. Distal sensation and motor function were grossly intact during limited examination. The patient was evaluated by the orthopedic/neurosurgical team (Dr. Mendez's service via bedside PA Kamron Kaminski). Standing AP and lateral lumbar spine radiographs were obtained, which showed no acute findings. Standing flexion/extension views were recommended but not obtained due to the patient's pain intolerance. IMAGING FINDINGS Lumbar Spine Radiographs (AP and Lateral views), 2025-08-05: - Mild leftward curvature - Diffuse moderate to severe degenerative disc disease with disc space narrowing - Osteophyte formation - Vacuum phenomenon - Osteoarthritis of the facet joints - Calcification of the abdominal aorta - Vertebral bodies maintain normal height - No evidence of acute fracture - No evidence of spondylolisthesis - No acute postoperative complications identified PAIN MANAGEMENT PLAN The patient declined multiple pain management options during her hospitalization. Specifically, she declined: - Nonsteroidal anti-inflammatory drugs (NSAIDs) - Opioid analgesics (hydromorphone) - Continuation of oxycodone After thorough discussion of multimodal pain management options and their benefits, the patient elected to manage her pain with acetaminophen (Tylenol) only. Acetaminophen 975 mg was ordered for pain management. CANCELED ORDERS AND CONSULTATIONS The following orders and consultations were canceled per patient preference: - Hydromorphone order (opioid analgesic) - Ibuprofen order (NSAID) - Physical therapy evaluation - Case management consultation - Short-term rehabilitation facility placement - [facility] (V[facility]) services with physical therapy DISCHARGE DISPOSITION AND INSTRUCTIONS The patient was discharged to home per her preference after extensive shared decision-making discussion. The patient verbalized understanding of the risks and benefits of: * Inpatient rehabilitation versus home discharge * VNA with physical therapy services versus relying on previously arranged home physical therapy * Opioid and NSAID analgesia versus acetaminophen-only pain management The patient elected home discharge despite recommendations for additional support services. She has home physical therapy previously arranged, though the first appointment has not yet been scheduled. Discharge Medications: * Acetaminophen 975 mg orally as needed for pain (maximum daily dose not to exceed 4,000 mg or 3,000 mg if patient weighs 50 kg or has hepatic considerations) Discharge Instructions: Discharge Instructions: * Take acetaminophen as prescribed for pain management. Do not exceed the maximum daily dose of 4,000 mg from all sources (including [id number] products containing acetaminophen). * Gradual mobilization and activity as tolerated. Early activation is encouraged after decompressive surgery when medically appropriate.[9-11] * Monitor for worsening neurologic symptoms including new or worsening weakness, numbness, loss of bowel or bladder control, or saddle anesthesia - these are red flag symptoms requiring immediate medical attention. * Monitor surgical incision for signs of infection (increasing redness, warmth, drainage, fever). * Encourage small sips of clear fluids as tolerated given reported nausea. Advance diet as tolerated. * Avoid prolonged immobility; change positions regularly to prevent complications. * Follow up with home physical therapy as scheduled (first appointment pending). Follow-up Appointments: * Follow up with Dr. Mendez (spine surgeon) per routine postoperative schedule or sooner if symptoms worsen * Contact surgeon immediately for any red flag symptoms including fever, severe worsening pain, new neurologic deficits, signs of wound infection, or inability to urinate PROBLEM LIST AT DISCHARGE * Severe postoperative left leg pain?- status post lumbar decompressive surgery (2025-08-01), managed with acetaminophen only per patient preference * Postoperative nausea?- improving with minimal intervention * Postoperative hematuria?- resolved (occurred postoperative day 1 only) * Seasonal allergic rhinitis?- stable, patient normally takes loratadine (Claritin) * Degenerative disc disease?- moderate to severe on imaging * Facet joint osteoarthritis?- moderate ALLERGIES * Codeine (patient reports allergy; specific reaction unknown) CONDITION AT DISCHARGE Stable for discharge to home with pain management limitations and mobility restrictions as described above. DISCHARGE DIAGNOSES * Postoperative left leg pain, status post lumbar decompressive surgery * Functional impairment with inability to ambulate independently * Lumbar degenerative disc disease, moderate to severe * Facet joint osteoarthritis * Postoperative nausea, resolving YOu requested CBC and BMP while here: no luekocytosis or electrolyte imbalance. Good kidney function. Prescriptions: No Action oxycodone 5 mg tablet 5 mg PO Q6H PRN (Reason: pain) Qty: 14 0RF Rx Instructions: Partial Fill upon patient request. hydrochlorothiazide 25 mg tablet 25 mg PO QAM albuterol sulfate 2.5 mg /3 mL (0.083 %) Solution For Nebulization 2.5 mg INHALATION QID PRN (Reason: Shortness Of Breath Or Wheezing) furosemide 40 mg tablet 40 mg PO DAILY tramadol 50 mg tablet 50 mg PO Q6H PRN (Reason: pain) Qty: 20 0RF prednisone 5 mg tablet 5 mg PO DAILY atenolol 25 mg tablet 25 mg PO BID alprazolam 0.5 mg tablet 0.5 mg PO TID PRN (Reason: Anxiety) lansoprazole 15 mg capsule,delayed release(DR/EC) 15 mg PO DAILY loratadine [Claritin] 10 mg tablet 10 mg PO DAILY triazolam 0.25 mg tablet 0.25 mg PO BEDTIME triamcinolone acetonide 0.1 % paste 1 appl dental BID Rx Instructions: use after food and/or drink and/or oral hygiene nystatin 100,000 unit/gram cream 1 appl topical DAILY potassium gluconate 595 mg (99 mg) tablet 595 mg PO DAILY levothyroxine 25 mcg capsule 25 mcg PO DAILY magnesium oxide 400 mg magnesium tablet 400 mg PO DAILY Referrals: Jordan Mendez MD [Physician, Orthopedics] Clinical Impression: Left lumbar radiculopathy Print Language: Mohawk
[2025-08-05 12:42] LABS: Appearance Urine Clear; Glucose Urine UA Negative (Negative); PH 8.5 (5.0-9.0); Specific Gravity - Urine <= 1.005 (1.005-1.025)
--- NOTE | 2025-08-05 12:47 | PC.NURSE ---
Pt able to stand/pivot to BR toilet with minimal assistance. LIONEL Nice made aware
[2025-08-05 12:54] LABS: Cannabinoid Screen Urine Not Detected (Not Detect)
--- NOTE | 2025-08-05 14:13 | HO.NEUROPN_ITS ---
Neurosurgery Operative Note Date of Service: 08/05/25 Narrative: Procedure: L4-5 Laminotomy, Partial facetectomy and foraminotomy POD: 4 HPI: Melchor is a 85 year old female who underwent the above-mentioned procedure with Dr. Arboleda on 08/01/2025. She was discharged home after her elective single-level lumbar decompression outpatient surgery. She called our on-call phone number and spoke with Dr. Arboleda regarding some of her symptoms. She reported severe left leg pain primarily with weight-bearing/ambulation. She was advised to come into clinic for evaluation but reported that she did not think she could ambulate / drive / obtain trasnport. Therefore we advised her to go to the ED via EMS for workup of her pain. She was evaluated in the emergency department by myself and LIONEL Kaminski today. She reports that the day after returning home she began experiencing fairly severe left-sided leg pain, shooting down the entirety of her leg, primarily localized to the left lateral side. She reports this pain is similar to the pain she had preoperatively however feels more intense. She denies any numbness / burning / tingling associated with the pain. No saddle anesthesia or loss of bowel / bladder control. Moderate pain reported lying in hospital bed during evaluation. She has been taking the Oxycodone we sent in for her which she reports only provides modest relief. Exam: On examination the patient is awake, alert, and in no acute distress. She has no focal neurological deficits. She has full sensation to light touch and her temperature sense is reported as normal comparing left to right legs. Distal pulses of lower extremities intact. No notable edema (patient reports preop left leg edema has been much better since surgery). Strength is full and equal in lower extremitites. Patient does elicit increased left leg pain when turning on her side for evaluation of incision. Incision site is closed, well healing, with no signs of erythema or drainage. Plan: 85 year old female who underwent the above-mentioned procedure with Dr. Arboleda on 08/01/2025. The pain she describes today sounds like an inflammation related pain likely secondary to postoperative swelling which may be causing some transient nerve compression. The patient had a difficult time recounting her history during this evaluation. Based on what she told us it sounds like the pain has been waxing and waning in nature since surgery, with the bulk of her pain occuring with standing / ambulation. LIONEL Kaminski and I discussed this with our attending Neurosurgeon Dr. Arboleda who would like standing X-rays ordered f or the patient. We will update the ED / patient when the X-rays are complete, read by radiology, and reviewed by Dr. Arboleda. Rohith Arboleda MD,PhD [facility]
--- NOTE | 2025-08-05 15:13 | PC.NURSE ---
Pt flatly refusing to stay for PT/CM. PT karime was able to walk patient to the BR and back w/ a walker w/ minimal assistance. Patient then demanding OP follow up electrolytes draw. T/w radio script writer informed pt ED does not draw OP f/u labs unless they are needed as part of the work up. Pt then proceeded to yell at this radio script writer, calling them a bitch Provider Arlet informed. DC now canceled, provider to order labs as patient is now stating she believes her leg pain is d/t her electrolytes.
[2025-08-05 15:43] LABS: MANUAL DIFF FLAG NO
[2025-08-05 15:46] LABS: Hematocrit 34.9 % (37.0-47.0); Hemoglobin 11.6 g/dl (12.0-16.0); Imm Gran Abs Auto 0.03 X10*3/uL (0.00-0.03); Imm Gran Pct Auto 0.4 % (0.0-0.4); Lymphocytes Absolute Auto 1.3 X10*3/uL (1.2-4.9); Mean Corpuscular HGB Conc 33.2 g/dl (31.0-35.0); Mean Corpuscular Hemoglobin 31.5 pg (27.0-33.0); Mean Corpuscular Volume 94.8 fL (80.0-98.0); NRBC Abs Auto 0.000 X10*3/uL (0.0-0.012); NRBC Pct Auto 0.0 /100WBC (0.0-0.2); Platelet Count 189 X10*3/uL (160-400); Red Blood Count 3.68 X10*6/uL (4.20-5.50); White Blood Count 7.3 X10*3/uL (4.8-10.8)
[2025-08-05 15:52] VITALS: BP 161/85; PULSE 72; RESP 16; TEMP 36.5; O2SAT 92
[2025-08-05 15:56] LABS: Anion Gap 12 (12-20); Blood Urea Nitrogen 9 mg/dL (9-16); Calcium 9.6 mg/dL (8.4-10.2); Carbon Dioxide 29 mmol/L (22-29); Chloride 105 mmol/L (96-108); Creatinine Clr Calc Pharmacy 75.9; Estimated Glomerular Filt Rate > 60; Magnesium 2.0 mg/dL (1.6-2.6); Potassium 4.0 mmol/L (3.3-5.1); Sodium 142 mmol/L (135-145)
--- NOTE | 2025-08-05 16:02 | PC.NURSE ---
Pt now requesting her home BP meds, provider to order and discharge pt.
[2025-08-05 16:21] VITALS: BP 161/85; PULSE 72; RESP 16; TEMP 36.5; O2SAT 92
--- OUTSIDE RECORDS SUMMARY | 2025-08-05 20:21 | XMS_ITS | Clinical Summary ---
Author Organization [facility] Prior to 01/26/25 Address [address] [place] [address] Care Team Providers Care Head Bellhop Captain Name Role Phone Mer Arevalo NP Primary Care Provider [phone] Allergies Active Allergy Reactions Criticality Noted Date [...] both breasts 02/13/2018 Overview: Overview: 2017 Lumpectomy, ER/CA positive, opted to forgo any RT, declined [...] Advance Directives For more information, please contact: [phone] Latest Code Status on File Code Status Date Activated Date Inactivated Comments Full Code 05/11/2018 3:46 PM 05/12/2018 12:15 AM This code status was ascertained in the following way: discussed preop . Care Teams Head Bellhop Captain Relationship Specialty Start Date End Date Mer Arevalo NP [address] [place] [address] PCP - General Nurse Practitioner 05/05/18
--- OUTSIDE RECORDS SUMMARY | 2025-08-05 20:21 | XMS_ITS ---
Author Name [facility] Organization Unknown Care Team Organization Name Specialty Phone Email Start Date End [facility] 01/29/2023 [facility]
== END 2025-08-05 16:21 | disposition home or self-care (01) ==
PROVIDERS: Physician Assistant Medical; Emergency Provider Emergency Medicine; PCP Physician Assistant Medical
DX: M96.89 Other intraoperative and postprocedural complications and disorders of the musculoskeletal system (principal); M54.16 Radiculopathy, lumbar region; R11.0 Nausea; M79.605 Pain in left leg; M51.369 Other intervertebral disc degeneration, lumbar region without mention of lumbar back pain or lower extremity pain; Z79.899 Other long term (current) drug therapy
CPT/HCPCS: 36415; 72100; 80048; 80307; 81003; 83735; 85025; 99284

== ENCOUNTER → 2025-08-05 12:16 | Outpatient (BNV) | payer MEDICARE, SELFPAY | PROVIDERS: Emergency Provider Emergency Medicine; PCP Physician Assistant Medical; Visit Provider Physician Assistant | DX: Z48.89 Encounter for other specified surgical aftercare (principal) | CPT/HCPCS: 99024 ==

== ENCOUNTER → 2025-08-05 12:42 | Outpatient (BNV) | payer MEDICARE, SELFPAY | PROVIDERS: Emergency Provider Emergency Medicine; PCP Physician Assistant Medical; Visit Provider Radiology Diagnostic Radiology | DX: M51.360 Other intervertebral disc degeneration, lumbar region with discogenic back pain only (principal) | CPT/HCPCS: 72100 ==

== ENCOUNTER 2025-08-23 13:35 | Outpatient (AMB) | payer MEDICARE, SELFPAY ==
--- OUTSIDE RECORDS SUMMARY | 2025-08-23 13:38 | XMS_ITS | Data Portability ---
Author Organization [place] [facility] Address [address] [place] [id number] Care Team Providers Care Secretary Of State Name Role Phone MAIN OFFICE Primary Care [...] treated for acute diverticulitis since 10/11 from [facility], originally on Flagyl but changed to [...] after care of this patient according to [facility]'s infection prevention protocols. simonacee Not available 10/18/2021 [...] upset stomach w/o sig NVD. Tylenol and Mesa cough drops have been helping w/ her [...] IA, respirato ry specimen 2021 022 [facility], [address] [place] [address], [id number], 14:40:08 Referral None recorded. Procedures None recorded. Surgeries None recorded. Imaging None recorded. Medication Orders neomycin- polymyxin -hydrocor t 3.5 mg-10,000 unit/mL-1 % ear drops,aneta p 2019 020 [facility], [address] [place] [address], [place], [address], 13:19:32 Patient TargetsNo targets recorded. Patient Instructions Encounter Date Encounter Id Patient Instructions Last Modified By Organization Details Last Modified Time 05/03/2020 [id number] ear infection (otitis media): care instructions vivian Not available 05/03/2020 13:07:15 Thank you for yo ur visit with [facility] today. We cannot always find the exact [...] in your condition between 8am-10pm, please call [facility] at [phone] to help navigate your care. vivian Not available 05/03/2020 13:07:01 10/18/2021 [id number] -You were seen today for lower abdominal [...] ve Not Available [facility] - [facility] [address] [place], [address], 07/19/2022 14:38:37 07/19/20 22 07/19/2022 rapid SARS CoV 2 Ag, QL IA, respi rator y speci men Control Visual ized/V alid Not Available [facility] [address] [place], [address], 07/19/2022 14:38:37 07/19/20 22 07/19/2022 rapid SARS CoV 2 Ag, QL IA, respi rator y speci men Location [facility], [facility], [address] [place] [address], [id number] Not Available [facility] [address] [place], [address], 07/19/2022 14:38:37 Result Notes None recorded. Procedures Surgical History Date Name Laterality Status Provider Name and Address Organization Details Recorded Time 07/19/20 Medication Review completed LIONEL Whitlock [address] [place], [address], [place] [facility] 07/19/2022 14:40:29 Imaging Results None recorded. Procedure Notes None recorded. Medical Equipment None Reported. Allergies Allergen ID Allergen Name Allergen Category Reaction Reaction Severity Criticality Documentation Date Start Date Code Code System Note Provider Name and Address Organization Details Recorded Time 773315 clindamyc in Not available Not available Not available Not available 05/03/2020 2582 RxNorm YOLI SU NP [address] [place], [address], [place] [facility] 0 12:49:13 321364 Augmentin medicatio n Not available Not available Not available 05/03/2020 66930 2 RxNorm YOLI SU NP [address], [place], [address], [place] [facility] 0 12:49:24 889931 Zoloft medicatio n Not available Not available Not available 05/03/2020 26279 RxNorm YOLI SU , [employer] [address], [place], [address], [place] [facility] 0 12:49:33 073974 codeine medicatio n Not available Not available Not available 05/03/2020 2670 RxNorm YOLI SU , [employer] [address], [facility] [place], [address], [place] [facility] 0 12:49:47 228500 procaine hydrochlo ride medicatio n Not available Not available Not available 05/03/2020 47878 8 RxNorm YOLI SU , [employer] [address], [facility] [place], [address], [place] [facility] 0 12:50:18 198373 Xylocaine medicatio n Not available Not available Not available 05/03/202031867 8 RxNorm YOLI SU , [employer] [address], [facility] [place], [address], [place] [facility] 0 12:50:46 570997 Levaquin medicatio n Not available Not available Not available 05/03/2020 51948 2 RxNorm YOLI SU , [employer] [address], [facility] [place], [address], [place] [facility] 0 12:50:56 525323 Zithromax medicatio n Not available Not available Not available 05/03/2020 55842 4 RxNorm YOLI SU , [employer] [address], [facility] [place], [address], [place] [facility] 0 12:51:09 466597 Substance with sulfonami de structure and antibacte rial mechanism of action (substanc e) medicatio n Not available Not available Not available 05/03/2020 92647 8003 SNOMED YOLI SU , [employer] [address], [facility] [place], [address], [place] [facility] 0 12:51:16 645335 dexametha sone medicatio n Not available Not available Not available 05/03/2020 3264 RxNorm YOLI SU , [employer] [address], [place], [address], [place] [facility] 0 12:51:23 861210 triamcino lone medicatio n Not available Not available Not available 05/03/2020 02405 RxNorm YOLI SU , [employer] [address], [place], [address], [place] [facility] [...] Not Available No t Available amoxicillin 875 mg-potjenniferiu m clavulanate 125 mg tablet TAKE ONE [...] Vitals Date Recorded Heart rate Oxygen saturation Inhaled oxygen flow rate Respiratory rate Body temperature Systolic And Diastolic Provider Name and Address Organization Details Last Updated DateTime 2 76 /min 100 % 2 L/min 16 /min 99.2 [degF] 128/66 mm[Hg] Not Available [facility] 2 13:17:38 Date Recorded Body temperature Respiratory rate Oxygen saturation Heart rate Systolic And Diastolic Provider Name and Address Organization Details Last Updated DateTime 0 99.3 [degF] 16 /min 94 % 80 /min 160/80 mm[Hg] Not Available [facility] 0 12:50:58 Date Recorded Heart rate Oxygen saturation Respiratory rate Body temperature Systolic And Diastolic Provider Name and Address Organization Details Last Updated DateTime 2 76 /min 94 % 20 /min 101.1 [degF] 118/58 mm[Hg] Not Available [facility] 2 14:35:55 Social History Question Answer Notes LastModified by Organizat ion Details LastModified Time Tobacco Smoking Status Former Smoker YOLI SU, [employer] [address], [place], [address], [place] [facility] 05/03/2020 12:55:53 Do You [...] Visiting Friends Or Family Or Going To Taoist Or Club Meetings) 3 Or 4 Times Per Week Information not available 05/03/2020 Excessive Alcohol Or Drug Use No Vodka And Josephine With Dinner Nightly Information not available 05/03/2020 [...] N Cancer Y Stroke N Dementia N Asthma N Hypothyroidism Y Depression N COPD Y High Cholesterol N Rheumatoid Arthritis N Pulmonary Embolism N Hypertension Y A-fib N Kidney Disease N Gynecological HistoryNo gynecological history recorded. Obstetrics History GPAL:G 0 P 0 0 0 0 Past Encounters Encounter ID Performer Location Encounter Start Date Encounter Closed Date Diagnosis/Indication Diagnosis SNOMED-CT Code Diagnosis ICD10 Code Diagnosis IMO Codes Diagnosis Note [id number] YOLI SU NP [facility] [address] [place] [address] 05/03/2020 12:46:56 05/07/2020 20:49:05 Acute otitis externa 43536119 H60.509 [id number] Heather Cervantes NP [facility] [address] [place] [address] 10/18/2021 13:08:18 10/19/2021 11:36:20 Diverticulitis of sigmoid colon 372076588 K57.32 Constipation 02381047 K5 9.00 Hemorrhoids 11371058 K64 .9 [id number] LIONEL Dill [facility] [address] [place] [address] 07/19/2022 14:18:51 08/03/2022 11:23:48 COVID-19 437116816 U07.1 Health Concerns Section Related Observation LastModified by Organization Detai ls LastModified Time None Recorded Concern Status LastModified by Organization Details LastModified Time None Recorded Advance Directives Directive Y: Payers Insurance Date Sequence Insurance Name Policy Number Policy Acosta Covered Member ID Acosta Member ID Guarantor Name 08/03/2022 2 [facility] ([place]) [id number] Melchor Hernandez [id number] Melchor Hernandez 10/18/2021 1 *SELF PAY* Melchor Hernandez [id number] Melchor Hernandez 07/19/2022 1 MEDICARE B-[place]: [facility] [employer] Melchor Hernandez [id number] Melchor Hernandez Notes Date Note Type [...] ear. YOLI SU, CHERYL [address], [place], [address], [place] [facility] 05/03/2020 20:45:49 2 text/html 81 year old female known to but new to provider with a history of diverticulosis/acut e diverticulitis, HTN, breast CA, hypothyroid, PMR, IBS being seen today for lower abd cramping, constipation. She has been treated for acute diverticulitis after [facility] ER visit on 10/11 for which [...] 100%. Heather Cervantes, CHERYL [address], [place], [address], [place] [facility] 10/18/2021 14:52:24 2 text/html 82 YO F known to but new to provider4 days of URI sxs that are consistent w/ COVID 19She did a test earlier this week that was positive but she isnt sure she did it quite right Sore throat, fever, non-productive cough, runny stuffy nose, intermittent mild headaches, upset stomach w/o sig NVD.Tylenol and Mesa cough drops have been helping w/ her sxs she reports. Nothing makes sxs worse.Denies weakness numbness, tingling, falls, visual changes, resp distress, chest pain. No other reportes sxs or concerns today. LIONEL Whitlock [address], [place], [address], [place] [facility] 07/19/2022 15:33:00 OBGyn Episode No OBEpisode recorded.
--- OUTSIDE RECORDS SUMMARY | 2025-08-23 13:39 | XMS_ITS | Patient Health Record ---
Author Organization [facility] Address [address] [place] [address] Care Team Providers Care Synthetic Filament Extruder Name Role Phone Mer Arevalo Primary Care Provider Lance Robertson Unavailable [phone] Allergies Allergen (clinical drug ingredient) Drug/Non Drug Allergy documented on EMR Reaction Allergy Type Onset Date Status Amoxicillin with Colvlanhic Acid (uncoded) Unknown Allergy Active No for Test (uncoded) Unknown Allergy Active triamcinolone Triamcinolone (uncoded) Unknown Allergy Active lidocaine Zylocaine (uncoded) anything gerardo ne makes me go into shock Allergy Active Dexamethasone Unknown Drug Allergy Act hong Levaquin heart races blood pressure goes up [...] Status Risk Notes Problem Acquired hallux valgus (41827983) Hallux valgus (acquired), left foot (M20.12) Active confirmed Problem Acquired hallux valgus (13390553) Hallux valgus (acquired), right foot (M20.11) Active confirmed Problem Acquired hammer toe of right foot (0930684620608 105) Other hammer toe(s) (acquired), right foot (M20.41) Active confirmed Problem Acquired hammer toe of left foot (1900790929732 103) Other hammer toe(s) (acquired), left foot (M20.42) Active confirmed Problem Raynaud's disease (306070760) Raynaud's syndrome without gangrene (I73.00) Active confirmed [...] Inc [address] [place] [address] [id number] Melchor Hernandez Self - patient is the insured [facility] [address] [place] [address] [id number] [facility] Melchor Hernandez Self - patient is [...]
--- OUTSIDE RECORDS SUMMARY | 2025-08-23 13:39 | XMS_ITS | Clinical Summary ---
Author Organization [facility] Prior to 01/26/25 Address [address] [place] [address] Care Team Providers Care Security Assurance Specialist Name Role Phone Mer Arevalo NP Primary Care Provider [phone] Allergies Active Allergy Reactions Criticality Noted Date [...] both breasts 02/13/2018 Overview: Overview: 2017 Lumpectomy, ER/[place] positive, opted to forgo any RT, declined [...] Advance Directives For more information, please contact: [phone] Latest Code Status on File Code Status Date Activated Date Inactivated Comments Full Code 05/11/2018 3:46 PM 05/12/2018 12:15 AM This code status was ascertained in the following way: discussed preop . Care Teams Security Assurance Specialist Relationship Specialty Start Date End Date Mer Arevalo NP [address] [place] [address] PCP - General Nurse Practitioner 05/05/18
--- OUTSIDE RECORDS SUMMARY | 2025-08-23 13:39 | XMS_ITS | Clinical Summary ---
Author Organization [facility] Address [address] [place] [address] Phone Care Team Providers Care Professor In Family Studies Name Role Phone Mer Arevalo NP Primary Care Provider [phone] Allergies Active Allergy Reactions Criticality Noted Date Comments Azithromycin Unknown,Palpitations Low 07/08/2015 Other Reaction(s): heart racing, increased BP Cephalexin GI intolerance 02/04/2018 Clavulanic Acid GI intolerance 07/08/2015 Clindamycin GI intolerance,Unknown 02/04/2018 Codeine Hives,Unknown 07/08/2015 Other Reaction(s): hives,shock Dexamethasone GI intolerance,Unknown, Other 07/08/2015 Eye drops, increased her blood pressure Epinephrine 12/23/2021 Other Reaction(s): [place] faint pt states elevated blood pressure and [...] 1 (one) time each day. 5 Active Active Problems Problem Noted Date Diagnosed Date Acute hypoxemic respiratory failure 07/03/2025 Encounters Date Type Department Care Team Description 07/03/2025 5:37 AM EST - 07/04/2025 3:10 PM EST Hospital Encounter [facility] [address] [place] [id number] Mango Monk MD Ziebro, John, MD Nasser, Nada S, MD Metabolic alkalosis (Primary Dx); Left leg swelling; Hypoxia; Contusion of left orbital tissues, initial encounter; Hypokalemia; Acute hypoxemic respiratory failure (CMS/HCC V24, CMS/HCC V28) Discharge Disposition: Home-Health Care [facility] from Last 3 Months Surgical History Surgery Date Site/Laterality Comments CATARACT EXTRACTION PROCEDURE: HISTORICAL CATARACT REMOVAL SECTION PROCEDURE: HISTORICAL ; COMMENT: x 4 HYSTERECTOMY PROCEDURE: HISTORICAL HYSTERECTOMY BREAST BIOPSY Bilateral PROCEDURE: BX BREAST; PERC NEEDLE CORE W/IMAG GUID; COMMENT: DCIS bilateral OTHER SURGICAL HISTORY 02/18/2016 Right PROCEDURE: [facility] RHINP PRIM LAT&ALAR CRTLGS&/ELVTN NASAL TI; COMMENT: [...] LEFT EYE; Surgeon: Darin Patel MD; Location: [facility] MAIN OPERATING ROOM; Service: Ophthalmology; Laterality: Left; [...] (DCIS) of both breasts; COMMENT: 2017 Lumpectomy, ER/VA positive, opted to forgo any RT, declined sytemic therapy as welll Abdominal pain DX:Abdominal julia n History of diverticulitis DX:His tory of diverticulitis COPD (chronic obstructive pu lmonary disease) [place] [place] [facility] [place] DX:COPD (chronic o bstructive pulmonary disease) ([facility]) Retinal detachment DX:Retinal de 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;COMMENT:2 L at night Cancer [place] [place] [facility] [place]) DX:Cancer ([facility]);COMMENT:breast cancer Hypothyroidism DX:Hypothyroidis m Sleep apnea, [...] on file Sexual Orientation Not on file Last Filed Vital Signs [...] Health Maintenance Due Date Last Done Comments Drug Screen 1940 Non-Opioid Controlled Substance Agreement 1938 COVID-19 Vaccine (#1) 1943 DTaP,Tdap,and Td Vaccines [...] WO CONTRAST STAT 07/03/2025 5:21 PM EST [facility] 30-74 MINUTES Routine 07/03/2025 5:00 [...] and culture (07/04/2025 9:50 AM EST) Specific [place] Urine 1.008 1.003 - 1.030 LAB URINALYSIS - AUTOMATED METHOD 07/04/2025 10:20 AM [facility] pH, Urine 7.5 5.0 - 8.0 pH LAB URINALYSIS - AUTOMATED METHOD 07/04/2025 10:20 AM [facility] Leukocytes, Urine Negative Negative LAB URINALYSIS - AUTOMATED METHOD 07/04/2025 10:20 AM [facility] Nitrite, Urine Negative Negative LAB URINALYSIS - AUTOMATED METHOD 07/04/2025 10:20 AM [facility] Protein, Urine Negative <=Trace mg/dL LAB URINALYSIS - AUTOMATED METHOD 07/04/2025 10:20 AM [facility] Glucose, Urine Negative Negative mg/dL LAB URINALYSIS - AUTOMATED METHOD 07/04/2025 10:20 AM [facility] Ketones, Urine Negative Negative mg/dL LAB URINALYSIS - AUTOMATED METHOD 07/04/2025 10:20 AM [facility] Urobilinogen, Urine 0.2 0.2 - 1.0 mg/dL LAB URINALYSIS - AUTOMATED METHOD 07/04/2025 10:20 AM [facility] Bilirubin, Urine Negative Negative LAB URINALYSIS - AUTOMATED METHOD 07/04/2025 10:20 AM EST [facility] Blood, Urine Negative Negative LAB URINALYSIS - AUTOMATED METHOD 07/04/2025 10:20 AM [facility] Urine Urine specimen obtained by clean catch procedure / Unknown Non-blood Collection / Unknown 07/04/2025 9:50 AM EST 07/04/2025 10:10 AM EST Ariel Pacheco MD LAB URINE ORDERABLES Final Resu lt [facility] [address] [place] [address], [place] [phone] * Paredes urine culture tube (07/04/2025 9:50 AM EST) Extra Tube Hold for add-ons. 07/04/2025 12:01 PM EST [facility] Comment:Auto resulted. Urine Urine specimen obtained by clean catch procedure / Unknown Non-blood Collection / Unknown 07/04/2025 9:50 AM EST 07/04/2025 10:10 AM EST us Ariel Pacheco MD LAB URINE ORDERABLES Final Resu lt [facility] [address] [place] [address], [place] [phone] * (ABNORMAL) CBC auto differential (07/04/2025 5:55 AM EST) Only the most recent of2 resultswithin the time period is included. WBC 6.7 4.8 - 10.8 K/[facility] LAB HEMETOLOGY METHOD 07/04/2025 7:06 AM [facility] RBC 4.20 3.80 - 4.80 M/[facility] LAB HEMETOLOGY METHOD 07/04/2025 7:06 AM [facility] Hemoglobin 13.1 11.5 - 16.0 g/dL LAB HEMETOLOGY METHOD 07/04/2025 7:06 AM [facility] Hematocrit 39.0 35.0 - 47.0 % LAB HEMETOLOGY METHOD 07/04/2025 7:06 AM [facility] MCV 94.0 79.0 - 98.0 FL LAB HEMETOLOGY METHOD 07/04/2025 7:06 AM [facility] MCH 31.6 27.0 - 32.0 pcg LAB HEMETOLOGY METHOD 07/04/2025 7:06 AM [facility] MCHC 33.6 32.0 - 37.0 g/dL LAB HEMETOLOGY METHOD 07/04/2025 7:06 AM [facility] RDW 14.9 11.0 - 15.0 % LAB HEMETOLOGY METHOD 07/04/2025 7:06 AM [facility] Platelets 207 130 - 400 K/mcL LAB HEMETOLOGY METHOD 07/04/2025 7:06 AM [facility] MPV 9.9 7.0 - 11.0 FL LAB HEMETOLOGY METHOD 07/04/2025 7:06 AM [facility] NRBC 0.0 <1.0 % LAB HEMETOLOGY METHOD 07/04/2025 7:06 AM [facility] NRBC Absolute 0.00 <0.10 K/mcL LAB HEMETOLOGY METHOD 07/04/2025 7:06 AM [facility] Neutrophils Relative 51.5 % LAB HEMETOLOGY METHOD 07/04/2025 7:06 AM [facility] Lymphocytes Relative 34.8 % LAB HEMETOLOGY METHOD 07/04/2025 7:06 AM [facility] Monocytes Relative 11.1 % LAB HEMETOLOGY METHOD 07/04/2025 7:06 AM [facility] Eosinophils Relative 1.3 % LAB HEMETOLOGY METHOD 07/04/2025 7:06 AM [facility] Basophils Relative 0.4 % LAB HEMETOLOGY METHOD 07/04/2025 7:06 AM [facility] Immature Granulocytes Relative 0.9 % LAB HEMETOLOGY METHOD 07/04/2025 7:06 AM [facility] Neutrophils Absolute 3.44 1.50 - 7.00 K/mcL LAB HEMETOLOGY METHOD 07/04/2025 7:06 AM [facility] Lymphocytes Absolute 2.33 1.00 - 5.00 K/mcL LAB HEMETOLOGY METHOD 07/04/2025 7:06 AM [facility] Monocytes Absolute 0.74 0.20 - 1.00 K/mcL LAB HEMETOLOGY METHOD 07/04/2025 7:06 AM [facility] Eosinophils Absolute 0.09 0.00 - 0.50 K/mcL LAB HEMETOLOGY METHOD 07/04/2025 7:06 AM [facility] Basophils Absolute 0.03 0.00 - 0.20 K/mcL LAB HEMETOLOGY METHOD 07/04/2025 7:06 AM [facility] Immature Granulocytes Absolute 0.06(H) 0.00 - 0.03 K/mcL LAB HEMETOLOGY METHOD 07/04/2025 7:06 AM [facility] Blood Venous blood specimen / Unknown Venipuncture / Unknown 07/04/2025 5:55 AM EST 07/04/2025 6:36 AM EST us [facility] LAB BLOOD ORDERABLES Jackie nowak Result [facility] [address] [place] [address], * (ABNORMAL) C-reactive protein (07/04/2025 5:55 AM EST) C-Reactive Protein 4.28(H) <=0.50 mg/dL LAB CHEMISTRY METHOD 07/04/2025 10:02 AM EST [facility] Blood Venous blood specimen / Unknown Venipuncture / Unknown 07/04/2025 5:55 AM EST 07/04/2025 6:38 AM EST us Ariel Pacheco MD LAB BLOOD ORDERABLES Final Resu lt Performing Organization Address City/[facility]/ZIP Co de Phone Number [facility] [address] [place] [address], [place] [phone] * (ABNORMAL) Phosphorus (07/04/2025 5:55 AM EST) Pathologist [facility] Phosphorus 2.3(L) 2.5 - 4.5 mg/dL LAB CHEMISTRY METHOD 07/04/2025 10:02 AM EST [facility] Blood Venous blood specimen / Unknown Venipuncture / Unknown 07/04/2025 5:55 AM EST 07/04/2025 6:38 AM EST us Ariel Pacheco MD LAB BLOOD ORDERABLES Final Resu lt Performing Organization Address City/[facility]/ZIP Co de Phone Number [facility] [address] [place] [address], [place] [phone] * Magnesium (07/04/2025 5:55 AM EST) Only the most recent of2 resultswithin the time period is included. Magnesium 1.9 1.9 - 2.6 mg/dL LAB CHEMISTRY METHOD 07/04/2025 7:42 AM EST [facility] Blood Venous blood specimen / Unknown Venipuncture / Unknown 07/04/2025 5:55 AM EST 07/04/2025 6:38 AM EST [facility] LAB BLOOD ORDERABLES Jackie l Result [facility] [address] [place] [address], [place] [phone] * (ABNORMAL) Vitamin B12 (07/04/2025 5:55 AM EST) [facility] Vitamin B-12 1,090(H) 250 - 900 pcg/mL LAB CHEMISTRY METHOD 07/04/2025 10:32 AM [facility] Blood Venous blood specimen / Unknown Venipuncture / Unknown 07/04/2025 5:55 AM EST 07/04/2025 6:38 AM EST Ariel Pacheco MD LAB BLOOD ORDERABLES Final Resu lt Performing Organization Address [facility]/ZIP Co de Phone Number [facility] [address] [place] [address], [place] [phone] * (ABNORMAL) Basic metabolic panel (07/04/2025 5:55 AM EST) Only the most recent of2 resultswithin the time period is included. [facility] Sodium 138 133 - 145 mmol/L LAB CHEMISTRY METHOD 07/04/2025 7:44 AM [facility] Potassium 3.3(L) 3.5 - 5.5 mmol/L LAB CHEMISTRY METHOD 07/04/2025 7:44 AM [facility] Chloride 98 96 - 110 mmol/L LAB CHEMISTRY METHOD 07/04/2025 7:44 AM [facility] CO2 34(H) 21 - 32 mmol/L LAB CHEMISTRY METHOD 07/04/2025 7:44 AM [facility] Anion Gap 6 3 - 11 LAB CHEMISTRY METHOD 07/04/2025 7:44 AM [facility] Glucose 106(H) 70 - 100 mg/dL LAB CHEMISTRY METHOD 07/04/2025 7:44 AM [facility] BUN 9 5 - 25 mg/dL LAB CHEMISTRY METHOD 07/04/2025 7:44 AM EST [facility] Creatinine 0.50 0.50 - 1.10 mg/dL LAB CHEMISTRY METHOD 07/04/2025 7:44 AM EST [facility] eGFR 91 >=60 mL/min/1. 73m2 LAB CHEMISTRY METHOD 07/04/2025 7:44 AM EST [facility] Comment:Calculation based on the Chronic Kidney Disease Epidemiology Collaboration (CKD-EPI) equation refit without adjustment for race. BUN/Creatinine Ratio 18.0 LAB CHEMISTRY METHOD 07/04/2025 7:44 AM EST [facility] Calcium 9.0 8.5 - 10.5 mg/dL LAB CHEMISTRY METHOD 07/04/2025 7:44 AM EST [facility] Blood Venous blood specimen / Unknown Venipuncture / Unknown 07/04/2025 5:55 AM EST 07/04/2025 6:38 AM EST [facility] LAB BLOOD ORDERABLES Jackie l Result [facility] [address] [place] [address], * ECG-Annotated (07/04/2025) us Provider Onbase MD [...] Ferro MD on 07/03/2025 18:08:[address] PROCEDURES Final R esult * [facility] 30-74 MINUTES (07/03/2025 5:00 PM [...] LAB CHEMISTRY METHOD 07/03/2025 4:47 PM EST [facility] Blood Venous blood specimen / Unknown Venipuncture / Unknown 07/03/2025 4:03 PM EST 07/03/2025 4:07 PM EST us Mango Monk MD LAB BLOOD ORDERABLES Final Re sult [facility] [address] [place] [address], [place] [phone] * NM Lung Perfusion Imaging (07/03/2025 1:50 [...] Signed Date: 07/03/2025 17:02 ET Workstation ID: [id number] Transcribed By: Self Edit Transcribed Date: 07/03/2025 16:52 ET Narrative 07/03/2025 5:02 PM EST INDICATION: Shortness of breath FINDINGS: Perfusion only scan was obtained. 5.8 mCi of technetium 99 M MAA intravenously for the perfusion portion with imaging obtained in different positions including anterior, posterior, JAMAICAN, GODWIN, LPO and GODWIN views. Relevant studies: [...] defects on the other views. Procedure Note Sagar Marie MD - 07/03/2025 INDICATION: Shortness of breath FINDINGS: Perfusion only scan was obtained. 5.8 mCi of technetium 99 M MAA intravenously for the perfusion portionwith imaging obtained in different positions including anterior,posterior, JAMAICAN, GODWIN, LPO and GODWIN views. Relevant studies: [...] Signed Date: 07/03/2025 17:02 ET Workstation ID: [id number] Transcribed By: Self Edit Transcribed Date: 07/03/2025 16:52 ET [facility] IMG NM PROCEDURES Final Res ult * Thyroid stimulating hormone with reflex to free t4 and free t3 (07/03/2025 12:03 PM EST) TSH 1.27 0.40 - 4.00 mcIU/mL LAB CHEMISTRY METHOD 07/03/2025 5:31 PM EST [facility] Blood Venous blood specimen / Unknown Venipuncture / Unknown 07/03/2025 12:03 PM EST 07/03/2025 12:36 PM EST [facility] LAB BLOOD ORDERABLES Jackie l Result [facility] [address] [place] [address], * (ABNORMAL) Comprehensive Metabolic Panel (CMP) (07/03/2025 12:03 PM EST) Sodium 132(L) 133 - 145 mmol/L LAB CHEMISTRY METHOD 07/03/2025 1:40 PM [facility] Potassium 2.8(LL) 3.5 - 5.5 mmol/L LAB CHEMISTRY METHOD 07/03/2025 1:40 PM [facility] Chloride 89(L) 96 - 110 mmol/L LAB CHEMISTRY METHOD 07/03/2025 1:40 PM [facility] CO2 38(H) 21 - 32 mmol/L LAB CHEMISTRY METHOD 07/03/2025 1:40 PM [facility] Anion Gap 5 3 - 11 LAB CHEMISTRY METHOD 07/03/2025 1:40 PM [facility] Glucose 108(H) 70 - 100 mg/dL LAB CHEMISTRY METHOD 07/03/2025 1:40 PM [facility] BUN 11 5 - 25 mg/dL LAB CHEMISTRY METHOD 07/03/2025 1:40 PM [facility] Creatinine 0.52 0.50 - 1.10 mg/dL LAB CHEMISTRY METHOD 07/03/2025 1:40 PM [facility] eGFR 90 >=60 mL/min/1. 73m2 LAB CHEMISTRY METHOD 07/03/2025 1:40 PM [facility] Comment:Calculation based on the Chronic Kidney Disease Epidemiology Collaboration (CKD-EPI) equation refit without adjustment for race. BUN/Creatinine Ratio 21.2 LAB CHEMISTRY METHOD 07/03/2025 1:40 PM [facility] Calcium 9.1 8.5 - 10.5 mg/dL LAB CHEMISTRY METHOD 07/03/2025 1:40 PM EST [facility] AST (SGOT) 24 10 - 42 unit/L LAB CHEMISTRY METHOD 07/03/2025 1:40 PM [facility] ALT (SGPT) 36 10 - 60 unit/L LAB CHEMISTRY METHOD 07/03/2025 1:40 PM [facility] Alkaline Phosphatase 50 42 - 121 unit/L LAB CHEMISTRY METHOD 07/03/2025 1:40 PM [facility] Total Protein 6.4 6.0 - 8.0 g/dL LAB CHEMISTRY METHOD 07/03/2025 1:40 PM [facility] Albumin 3.5 3.2 - 5.0 g/dL LAB CHEMISTRY METHOD 07/03/2025 1:40 PM [facility] Total Bilirubin 0.6 0.0 - 1.4 mg/dL LAB CHEMISTRY METHOD 07/03/2025 1:40 PM [facility] Blood Venous blood specimen / Unknown Venipuncture / Unknown 07/03/2025 12:03 PM EST 07/03/2025 12:36 PM EST [facility] LAB BLOOD ORDERABLES Final Result [facility] [address] [place] [address], * CT Chest wo Contrast (07/03/2025 8:52 [...] Signed Date: 07/03/2025 09:37 ET Workstation ID: [id number] Transcribed By: Self Edit Transcribed Date: 07/03/2025 09:32 ET Narrative 07/03/2025 9:37 AM EST INDICATION: Shortness of breath TECHNIQUE: CT scan of the chest obtained without contrast. Scanner: [employer] revolution frontier 128 slice VCT Dose reduction [...] of the chest obtained without contrast. Scanner: [employer] revolution frontier 128 slice VCT Dose reduction [...] Signed Date: 07/03/2025 09:37 ET Workstation ID: [id number] Transcribed By: Self Edit Transcribed Date: 07/03/2025 [...] deep vein thrombosis in [left lower extremity. [id number] -------- FINAL REPORT -------- Dictated By: Sagar Marie Dictated Date: 07/03/2025 08:38 ET Assigned Physician: Sagar Marie Reviewed and Electronically Signed By: Sagar Marie Signed Date: 07/03/2025 08:38 ET Workstation ID: [id number] Transcribed By: Self Edit Transcribed Date: 07/03/2025 08:38 ET Procedure Note Sagar Marie MD - 07/03/2025 INDICATION: leg pain and swelling. FINDINGS: A duplex venous ultrasound was performed of the left lowerextremity. The common femoral, superficial femoral and popliteal veinsdemonstrate color-flow with augmentation and compressibility. Thevisualized calf veins also demonstrate color-flow. CONCLUSION: No evidence of deep vein thrombosis in [left lower extremity. [id number] -------- FINAL REPORT -------- Dictated By: Sagar Marie Dictated Date: 07/03/2025 08:38 ET Assigned Physician: Sagar Marie Reviewed and Electronically Signed By: Sagar Marie Signed Date: 07/03/2025 08:38 ET Workstation ID: [id number] Transcribed By: Self Edit Transcribed Date: 07/03/2025 08:38 ET us [facility] CV VASCULAR PROCEDURES Jackie l Result * ECG 12 lead (07/03/2025 6:28 AM EST) Ventricular Rate ECG 71 BPM GEMUSE Atrial Rate 71 BPM GEMUSE P-R Interval 144 ms GEMUSE QRS Duration 100 ms GEMUSE Q-T Interval 482 ms GEMUSE QTc 523 ms GEMUSE R Eolia -59 degrees GEMUSE T E[place] 10 degrees GEMUSE ECG Interpretation Critical Test Result: Long QTc Sinus rhythm with Fusion complexes and Premature atrial complexes with Aberrant conduction with ventricular escape complexes Left anterior fascicular block Prolonged QT Abnormal ECG When compared with ECG of 10-JUL-2014 01:14, Premature atrial contraction now seen Confirmed by Liset CALVERT JOHN ([id number]) on 07/03/2025 3:52:08 PM GEMUSE 07/03/2025 6:28 AM EST 07/03/2025 3:52 PM EST us Mango Monk MD ECG ORDERABLES Final Result [...] t from Last 3 Months Insurance MEDICARE [facility] Advance Directives * Full Code - Default [...] currently active code status orders. Care Teams Professor In Family Studies Relationship Specialty Start Date End Date Mer Arevalo NP [address] [place] [address] PCP - General Nurse Practitioner 05/05/18
--- NOTE | 2025-08-23 13:41 | HO.SPINEOV ---
Intake Visit Reasons: 1st post op Intake Note: Ms. Hernandez is here today for her 1st post op. 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: No Allergies clindamycin Allergy (Severe, Verified 08/23/25 14:05) stomach pain codeine (CODEINE) Allergy (Severe, Verified 08/23/25 14:05) Hives amoxicillin (AMOXICILLIN) Allergy (Intermediate, Verified 08/23/25 14:05) WITH COLVLANHIC ACID - CAN TAKE PLAIN AMOXICILLIN azithromycin (From ZITHROMAX) Allergy (Intermediate, Verified 08/23/25 14:05) SAME LEVAQUIN dexamethasone (DEXAMETHASONE) Allergy (Intermediate, Verified 08/23/25 14:05) burning throughout body Iodinated Contrast Media (IV CONTRAST) Allergy (Intermediate, Verified 08/23/25 14:05) I GO OUT OF IT levofloxacin (From LEVAQUIN) Allergy (Intermediate, Verified 08/23/25 14:05) TACHYCARDIA/HTN/BURNING ALL OVER paroxetine (From PAXIL) Allergy (Intermediate, Verified 08/23/25 14:05) BURNING UP THROUGH HEAD sertraline (From ZOLOFT) Allergy (Intermediate, Verified 08/23/25 14:05) STOMACH PROBLEMS Sulfa (Sulfonamide Antibiotics) (SULFA (SULFONAMIDE ANTIBIOTICS)) Allergy (Intermediate, Verified 08/23/25 14:05) SICK TO STOMACH cephelexin Allergy (Mild, Uncoded 04/03/25 13:30) gi issues Assessment & Plan Assessment & Plan (1) Lumbar stenosis with neurogenic claudication: Code(s): M48.062 - Spinal stenosis, lumbar region with neurogenic claudication Category: Medical Plan Mrs Hernandez is 3 weeks out from her left L3-4, L4-5 decompression. Unfortunately she does not feel any relief from her left leg pain, in fact it feels even worse. It bothers her when she walks, it bothers her when she sleeps. She is often narcotics because she did not like how they made her feel, she did not have any true allergy to codeine. The patient is able to demonstrate good range of motion and motor strength of her left leg. Her wound is healing up nicely. I reassured her that sometimes the pain may take some time to go away. The fact that she reports that it feels worse after surgery makes me think that there was probably some degree of pre-existing nerve injury already. I told her we would give it 6 more weeks and if it is not improved we will get an MRI with and without gadolinium. If that looks okay then she is probably looking at a spinal cord stimulator situation. Kamron Arboleda MD, PhD [facility] Coding Level of Care Code Global (57501) Diagnoses Lumbar stenosis with neurogenic claudication M48.062
== END 2025-08-23 14:42 | disposition home or self-care (01) ==
LOC: HO.HNS 13:36
PROVIDERS: PCP Physician Assistant Medical; Visit Provider Physician Assistant
DX: M48.062 Spinal stenosis, lumbar region with neurogenic claudication (principal)
CPT/HCPCS: 99024

== ENCOUNTER → 2025-08-23 13:35 | Outpatient (BNVA) | payer MEDICARE, SELFPAY | PROVIDERS: PCP Physician Assistant Medical; Visit Provider Physician Assistant | DX: M48.062 Spinal stenosis, lumbar region with neurogenic claudication (principal); Z98.890 Other specified postprocedural states | CPT/HCPCS: 99212 ==